=== PATIENT | female | born 1940 | race Caucasian/White ===

== ENCOUNTER 2017-10-31 14:42 | Outpatient (CLI) | payer MEDICARE, OTHER | END 2017-10-31 14:43 | disposition home or self-care (01) | LOC: BICMAMMO 14:42 | PROVIDERS: ATTEND Specialist | DX: Z12.31 Encounter for screening mammogram for malignant neoplasm of breast (principal); R92.1 Mammographic calcification found on diagnostic imaging of breast | CPT/HCPCS: 77063; 77067 ==

== ENCOUNTER 2018-04-08 17:34 | Emergency (ER) | payer MEDICARE ==
--- NOTE | 2018-04-08 18:35 | CT ---
CT HEAD WITHOUT CONTRAST: 04/08/18 Multiple axial tomograms obtained through the head without IV enhancement. INDICATION: Trauma. Patient is on blood thinner with Coumadin. Head injury with headache. Ventricles have normal size and position. No evidence of intracranial hemorrhage identified. No mass, edema or infarct seen. Some mild chronic ischemic white matter change. There is a mucous retention cyst in the both maxillary sinuses. IMPRESSION: 1. No acute intracranial abnormality. 2. Mucosal thickening in the floor of both maxillary sinuses. POS: [facility]
--- NOTE | 2018-04-08 18:45 | CT ---
CT CERVICAL SPINE WITH CORONAL AND SAGITTAL REFORMATIONS: 04/08/18 HISTORY: Trauma, headache, status post head injury, neck pain. FINDINGS/IMPRESSION: There are degenerative changes most prominent at C6-7 level. No acute fracture or subluxation is iden tified. POS: [facility]
== END 2018-04-08 19:04 | disposition home or self-care (01) ==
LOC: ERS 17:34
DX: S09.90XA Unspecified injury of head, initial encounter (principal); J44.9 Chronic obstructive pulmonary disease, unspecified; E03.9 Hypothyroidism, unspecified; E11.9 Type 2 diabetes mellitus without complications; I11.0 Hypertensive heart disease with heart failure; I50.9 Heart failure, unspecified; I48.91 Unspecified atrial fibrillation; W22.8XXA Striking against or struck by other objects, initial encounter
CPT/HCPCS: 70450; 72125

== ENCOUNTER 2018-04-14 14:24 | Outpatient (CLI) | payer MEDICARE ==
--- NOTE | 2018-04-14 16:55 | PRG ---
DATE OF SERVICE: 04/14/2018 HISTORY: Ms. Emily Mccormack is a very pleasant 77-year-old accompanied by her who presents to the [facility] for evaluation of a recurrent ulceration of the left forefoot over the first met atarsal head on the plantar surface of the left foot. The patient states that she recently completed a course of p.o. antibiotics. She states that today she noted purulent drainage from the wound. Th e patient has no other complaints today. She denies any fever or chills. PHYSICAL EXAMINATION: VITAL SIGNS: Temperature 97.4, pulse 67, respirations 19, blood pressure 140/67. Accu-Chek 150. EXTREMITIES: An ulceration over the plantar surface of the left forefoot in the region of the first metatarsal head is present. Granulation tissue is present within the wound margins. Necrotic and no nviable tissue present within the wound margins was debrided with an excisional full-thickness debrid ement with the use of scissors. No purulent drainage is associated with the wound. A sample of gran ulation tissue was excised with the use of scissors and sent for aerobic, anaerobic, and fungal cultu res. No erythema of the skin surrounding the wound is present. No maceration of the skin of the per iwound is noted. ASSESSMENT AND PLAN: 1. Recurrent ulceration of plantar surface of left forefoot over the first metatarsal head. Dressin g changes of Xeroform gauze followed by bordered gauze will be initiated today. These dressing lim es are to be performed on a daily basis after cleansing and irrigation. Antibiotic therapy will be i nitiated based upon the results of the tissue cultures obtained today. The patient and her u nderstand and are in agreement with the preceding treatment plan. 2. Diabetes mellitus. The patient's Accu-Chek in clinic today is 115. The patient has been reminde d that for optimal wound healing, her blood glucoses should remain below 150. 3. Hypertension. 4. History of atrial fibrillation and atrial flutter status post ablation x2. 5. Hypothyroidism. 6. Asthma. 7. Renal insufficiency. 8. Gastroesophageal reflux disease.
[2018-04-14] MEDS ORDERED: Sodium Chloride 0.9% 15 ML NEB ONE (18:30)
[2018-04-14] MEDS ORDERED: Lidocaine 2% Jelly 5 ML TUBE ONE (18:30)
== END 2018-04-14 14:25 | disposition home or self-care (01) ==
LOC: WCC 14:24
PROVIDERS: ATTEND Family Medicine
DX: E11.621 Type 2 diabetes mellitus with foot ulcer (principal); L97.429 Non-pressure chronic ulcer of left heel and midfoot with unspecified severity; L97.529 Non-pressure chronic ulcer of other part of left foot with unspecified severity; I10 Essential (primary) hypertension; J45.909 Unspecified asthma, uncomplicated; E03.9 Hypothyroidism, unspecified; N28.9 Disorder of kidney and ureter, unspecified; I48.91 Unspecified atrial fibrillation; I48.92 Unspecified atrial flutter
CPT/HCPCS: 36416; 87070; 87077; 87186; 87205; 87206; A4218

== ENCOUNTER 2018-08-18 13:03 | Outpatient (CLI) | payer MEDICARE ==
--- NOTE | 2018-08-18 16:00 | PRG ---
DATE OF SERVICE: 08/18/2018 HISTORY: Ms. Emily Mccormack is a very pleasant 77-year-old, accompanied by her , who presents to the [facility] for evaluation of a recurrent ulceration of the left forefoot over the first meta tarsal head on the plantar surface of the left foot. The patient states that she continues to have d rainage associated with her wound. The patient has no other complaints today. She denies any fever or chills. PHYSICAL EXAMINATION: VITAL SIGNS: Temperature 97.6, pulse 54, respirations 19, blood pressure 136/63. Accu-Chek 165. EXTREMITIES: A small shallow superficial wound over the plantar surface of the left forefoot in the region of the first metatarsal head is present. The wound resembles a break in the skin. No purulen t drainage is associated with the wound. No erythema of the skin surrounding the wound is present. No maceration of the skin of the periwound is noted. No significant edema of the left foot is presen t on exam today. ASSESSMENT AND PLAN: 1. Shallow superficial wound of the plantar surface of left forefoot over the first metatarsal head. As stated above, the wound resembles a break in the skin. [facility] it[facility]. These dressing changes are to be performed on a daily basis after cleansing and irrig ation. The patient and her understand and are in agreement with the preceding treatment plan . The patient will return to clinic on an as needed basis. 2. Diabetes mellitus. The patient's Accu-Chek in clinic today is 165. The patient has been reminde d that for optimal wound healing, her blood glucoses should remain below 150. 3. Hypertension. 4. History of atrial fibrillation and atrial flutter, status post ablation x2. 5. Hypothyroidism. 6. Asthma. 7. Renal insufficiency. 8. Gastroesophageal reflux disease.
== END 2018-08-18 13:04 | disposition home or self-care (01) ==
LOC: WCC 13:03
PROVIDERS: ATTEND Family Medicine
DX: E11.621 Type 2 diabetes mellitus with foot ulcer (principal); L97.521 Non-pressure chronic ulcer of other part of left foot limited to breakdown of skin; I10 Essential (primary) hypertension; E03.9 Hypothyroidism, unspecified; J45.909 Unspecified asthma, uncomplicated; K21.9 Gastro-esophageal reflux disease without esophagitis; N28.9 Disorder of kidney and ureter, unspecified; Z86.79 Personal history of other diseases of the circulatory system; Z98.890 Other specified postprocedural states
CPT/HCPCS: 36416

== ENCOUNTER 2018-10-27 02:06 | Inpatient (IN) | payer MEDICARE ==
[2018-10-27] MEDS ORDERED: Lorazepam 2 MG/ML VIAL ONE (04:01)
[2018-10-27 04:04] LABS: INR-International Normal Ratio 1.7; Prothrombin Time 20.4 SEC (12.0-14.7)
[2018-10-27 04:05] LABS: PTT 38.8 SEC (22.9-36.1)
[2018-10-27] MEDS ORDERED: Cefepime 2 GM VIAL ONE (04:06)
[2018-10-27 04:11] LABS: Hemoglobin 12.7 g/dL (12.0-16.0); Mean Corpuscular HGB CONC 33.1 g/dL (32.0-36.0); Mean Corpuscular Hemoglobin 32.1 pg (27.0-31.0); Mean Platelet Volume 9.7 fL (7.4-10.4); Platelet Count 158 thou/uL (130-400); RBC Distribution Width 13.1 % (11.5-14.5); Red Blood Cell (RBC) Count 3.96 mill/uL (4.20-5.40)
[2018-10-27] MEDS ORDERED: Cefepime 2 GM in Sodium Chloride 0.9% 100 ML IVPB SCH (04:15)
[2018-10-27 04:16] LABS: Band 30 % (5-11); Lymphocytes 9 % (21-51); MDiff Complete? YES; Monocytes 10 % (0-10); Neutrophil 51 % (42-75); Platelet Morphology Comment Appears Adequate
[2018-10-27 04:18] LABS: ALT (SGPT) 16 U/L (8-55); AST (SGOT) 19 U/L (5-34); Albumin 3.5 g/dL (3.4-4.8); Alkaline Phosphatase 33 U/L (40-150); Anion Gap 15 mmol/L (10-20); BUN (Urea Nitrogen) 28 mg/dL (9.8-20.1); Bilirubin, Total 0.8 mg/dL (0.2-1.2); Calc. Creatinine Clearance 0 mL/min (70-130); Calcium 9.1 mg/dL (7.8-10.44); Carbon Dioxide 27 mmol/L (23-31); Chloride 100 mmol/L (98-107); Estimated GFR-MDRD 25; Globulin 3.6 g/dL (2.4-3.5); Glucose 139 mg/dL (83-110); Potassium 3.7 mmol/L (3.5-5.1); Protein, Total 7.1 g/dL (6.0-8.3); Sodium 138 mmol/L (136-145)
[2018-10-27 07:21] LABS: Troponin I 0.058 ng/mL (< 0.028)
--- NOTE | 2018-10-27 08:42 | RAD ---
LEFT ANKLE 3 VIEWS: HISTORY: Pain. FINDINGS: Possible nondisplaced fracture involving the distal fibula. There does appear to be lateral soft tis kamlesh swelling. Chronic degenerative changes of the ankle joint space are noted. IMPRESSION: Nondisplaced fracture involving the distal fibula. There is associated soft tissue swelling. Results of the study were discussed with Dr. Vann 10/27/2018 at 8:00 a.m. CODE CR POS: [facility]
--- NOTE | 2018-10-27 09:08 | CT ---
PRELIMINARY REPORT/[facility]/EMERGENTY AFTER-HOURS PROCEDURE CT Head Without Contrast EXAM DATE/TIME: 10/27/2018 3:05 AM CLINICAL HISTORY: 78 years old, female; Injury or trauma; Fall; Initial encounter; Blunt trauma (contusions or hematoma s); Consciousness not specified; Patient HX: Fell out of bed. C/O left ankle, thigh pain. Vertigo, ge neralized weakness TECHNIQUE: Axial computed tomography images of the head/brain without contrast. COMPARISON: No relevant prior studies available. FINDINGS: Brain: Volume loss and chronic small vessel ischemic change. No brain edema. No intracranial hemorrha ge. Ventricles: Normal. No ventriculomegaly. Bones/joints: Normal. No acute fracture. Sinuses: Polypoid mucosal thickening in the maxillary and sphenoid sinuses. No fluid levels. Mastoid air cells: Normal as visualized. No mastoid effusion. Soft tissues: Normal. IMPRESSION: No acute brain findings. Thank you for allowing us to participate in the care of your patient. Dictated and Authenticated by: Roland Sullivan MD 10/27/2018 3:40 AM Central Time ([place] & [place]) FINAL REPORT HEAD CT WITHOUT CONTRAST: HISTORY: Fall. The patient is on Coumadin. COMPARISON: 04/08/2018. FINDINGS: This report is in agreement with the preliminary report by [facility]. No acute intracranial process. No i ntracranial posttraumatic sequelae. There is sinus opacification as described in the preliminary rep ort by [facility]. POS: [facility]
--- NOTE | 2018-10-27 09:39 | RAD ---
LEFT TIBIA FIBULA 2 VIEWS: History Fall. Trauma. Pain. FINDINGS: There is a nondisplaced distal fibula fracture. There is a mildly displaced proximal fibula fracture . There is diffuse bone demineralization. No evidence of cortical disruption with regards to the ti delia. IMPRESSION: Proximal and distal fibula fractures. POS: [facility]
--- NOTE | 2018-10-27 09:58 | RAD ---
FOUR VIEWS LEFT KNEE: HISTORY: Pain. Trauma. Fall. COMPARISON: 03/25/2011. FINDINGS: Minimal suprapatellar effusion. Mild medial compartment and patellofemoral compartment degenerative change. No evidence of fracture with regards to the distal humerus and proximal tibia. There is a m ildly displaced proximal fibula fracture. IMPRESSION: Proximal fibula fracture. POS: [facility]
--- NOTE | 2018-10-27 10:00 | RAD ---
CHEST 1 VIEW: COMPARISON: 01/16/2014. HISTORY: Status post fall. Pain. Trauma. FINDINGS: There is an enlarged cardiac silhouette. Atherosclerosis of the aorta. Right costophrenic angle is clear. There is a focal opacity in the right upper lobe measuring 5.5 cm. There is focal opacificat ion of the left lower lobe which obscures the lateral left hemidiaphragm. No pneumothorax or osseous abnormalities. IMPRESSION: Multilobar opacification suggesting multilobar pneumonia/infiltrate. Continued surveillance to ensur e complete resolution is recommended. CODE T POS: [facility]
[2018-10-27] MEDS ORDERED: Dextrose 50% Abboject 50 ML SYRINGE IVP PRN (10:28)
[2018-10-27] MEDS ORDERED: Insulin Regular 300 UNITS/3 ML VIAL SC PRN (10:28)
[2018-10-27] MEDS ORDERED: Dextrose 5% in Water 1,000 ML IV PRN (10:28)
[2018-10-27] MEDS ORDERED: VANCOMYCIN IVPB SCH (10:30)
[2018-10-27] MEDS: Sodium Chloride 0.45% 1,000 ML IV SCH ×2 (11:37→23:48)
[2018-10-27] MEDS ORDERED: Vancomycin HCl 500 MG in Sodium Chloride 0.9% 100 ML IVPB SCH (11:45)
--- NOTE | 2018-10-27 15:33 | CON ---
DATE OF CONSULTATION: 10/27/2018 CONSULTING PHYSICIAN: William Heath MD REASON FOR CONSULTATION: Left leg fracture. HISTORY OF PRESENT ILLNESS: This is an 78-year-old female, who fell out of bed with complaints of left ankle and thigh pain. She also presented to the [facility] with complaints of vertigo and generalized weakness. Upon further workup in the emergency department, the patient was found to have a proximal fibula fracture on the left side. We have been consulted for this reason. Currently at bedside in the emergency department, the patient is awaiting a bed upstairs. She is difficult to arouse and history is somewhat limited secondary to this. Majority of records obtained from the chart. The patient does report worsening generalized weakness over the last week, which she attributed to a bout of vertigo. She complains of left leg pain from the knee down. PAST MEDICAL HISTORY: Includes congestive heart failure, COPD, hypothyroidism, diabetes, hypertension; atrial fibrillation, currently on anticoagulants; neuropathy, and decreased kidney function. PAST SURGICAL HISTORY: Includes cardiac ablation x2, bilateral cataracts, hysterectomy, right knee surgery, tonsillectomy, and right hip fracture. SOCIAL HISTORY: The patient denies smoking. Denies alcohol use. Denies drug use. FAMILY HISTORY: Reviewed and noncontributory. ALLERGIES: INCLUDE IODINE, PENICILLIN, SHELLFISH, AND PLASMA PROTEIN FRACTION. PHYSICAL EXAMINATION: VITAL SIGNS: Temperature 98.5, pulse of 79, respiratory rate of 16, O2 saturation of 96% on 2 L nasal cannula, and blood pressure 173/72. GENERAL: The patient is sleeping heavily and is difficult to arouse. I am able to just get a few words out of her. She voices no pain. There is no family currently at bedside. HEENT. Head is normocephalic and atraumatic. NECK: Supple. Trachea midline. LUNGS: Breathing is nonlabored. EXTREMITIES: The left lower extremity was evaluated. There is a long leg posterior splint intact. This has been placed in the emergency department. The patient voluntarily moves her toes. Toes are warm to touch. Capillary refill 2 seconds. Skin is free of lesions and rashes at the splint edges. Remainder of extremities evaluated and no other injuries were noted. RADIOGRAPHIC FINDINGS: X-rays were reviewed, including tibia, knee, ankle films on the left side show evidence of proximal fibula fracture. There are chronic old changes within the ankle. No acute findings. No evidence of proximal tibia fracture. ASSESSMENT: Left proximal fibula fracture. The patient has a long leg splint placed. However, she may weightbear as tolerated. She may advance activity as tolerated. No surgical intervention is warranted at this time. Due to patient's condition, she will not awake for exam, I have been unable to discuss this with her. No family is at bedside. Please consult with the Orthopedic Service for any further questions. Job ID: [id number]
[2018-10-27] MEDS ORDERED: Vancomycin HCl 1 GM in Premix Bag 1 BAG IVPB SCH (16:00)
[2018-10-27] MEDS: Warfarin Sodium 1 MG TAB PO SCH (17:12)
[2018-10-27] MEDS ORDERED: Carvedilol 6.25 MG TAB PO SCH (21:00)
--- NOTE | 2018-10-27 21:26 | HP ---
CHIEF COMPLAINT ON ADMISSION: Pneumonia with sepsis and fibular fracture. HISTORY OF PRESENT ILLNESS: The patient is an 78-year-old white female who presented for evaluation of dizziness and vertigo. She stated that while getting out of bed, she slid off the bed onto the floor and has had generalized weakness over the last week, which she attributed to the vertigo. She fell again while trying to get loaded into the ambulance, hitting her head just barely without any loss of consciousness. She has pain in the lower left knee down. Symptoms are mostly severe in the left lower leg. She describes it as an 8/10 pain, worse with walking. She has had fever lately, but no headache. She has had nausea and vomiting. Her symptoms are made worse with movement. PAST MEDICAL HISTORY: Significant for congestive heart failure, chronic obstructive pulmonary disease, pleural effusion in the past, hypothyroidism, rfh-xpjoyqf-gmselyidg diabetes, hypertension, atrial fibrillation, diabetic peripheral neuropathy, renal insufficiency, and thrombophlebitis. She has also had a vertebral compression fracture due to osteoporosis. PAST SURGICAL HISTORY: Includes cardiac ablation x2, bilateral cataract repair, hysterectomy, right knee total replacement, tonsillectomy, right hip with a fracture and two rods placed in 04/2011. PSYCHIATRIC HISTORY: Significant for anxiety disorder and depression. SOCIAL HISTORY: No smoking history. Denies alcohol use or illicit drug use. FAMILY HISTORY: Noncontributory. ALLERGIES: ON ADMISSION INCLUDE IODINE, PENICILLIN, PLASMA PROTEIN FRACTION, SHELLFISH. MEDICATIONS ON ADMISSION: Include; 1. Hydrochlorothiazide 12.5 q.a.m. 2. Onglyza 5 mg daily. 3. [place] Thyroid 90 mg daily. 4. Hydrocodone 10 q.6h p.r.n. pain. 5. Actos 30 mg daily. 6. Forteo 20 mcg subcu daily. 7. Chlorzoxazone muscle relaxer 500 mg q.6 hours p.r.n. muscle spasm. 8. Toprol-XL 100 mg daily. 9. Gabapentin 100 mg b.i.d. 10. Symbicort 160/4.5 two puffs b.i.d. 11. Tricor 145 mg p.o. daily. 12. Amlodipine 10 mg daily. 13. Warfarin 1 mg every other day. 14. Clonidine 0.1 mg t.i.d. 15. Meclizine 25 mg t.i.d. 16. Fluticasone 50 mcg nasal spray per nostril daily. REVIEW OF SYSTEMS: CONSTITUTIONAL: Significant for generalized weakness, but denies fever, chills, or rigors. HEENT: Eyes without drainage or diminished vision. Ear, nose, and throat, no sores or draining lesions. CHEST: Reports shortness of breath and coughing more with exertion. CARDIOVASCULAR: The patient denies chest pain or palpitations. GI: Significant for nausea and vomiting, but no diarrhea or hepatosplenomegaly. : Negative for painful urination or blood in urine or stool. MUSCULOSKELETAL: Has diffuse aches and pains, particularly her left ankle from the knee down is causing her some discomfort and diminished range of motion. SKIN: No new rashes or lesions. NEUROLOGIC: Cranial nerves are nonfocal. She has no trouble with mentation. No areas of anesthesia or paresthesia. IMMUNOLOGIC/ENDOCRINE: No new areas of ecchymosis, bruising, or unexplainable swelling. PHYSICAL EXAMINATION: VITAL SIGNS: At time of admission, vital signs; blood pressure 146/92, pulse 76 , respirations 20, temperature 99, pain scale 8/10, and O2 saturation 96% on 2 L. GENERAL: This is a sleeping deeply , morbidly obese female. HEENT: Normocephalic and atraumatic. Pupils are equal, round, and reactive to light. Arcus senilis bilaterally. TMs, nares, pharynx clear. NECK: Supple. Trachea midline. No mass. No bruits. CHEST: With rales on the right. HEART: Regular rate and rhythm. No murmur. ABDOMEN: Soft. No organomegaly. Nontender. : Deferred. SKIN: Without overt rashes or lesions. EXTREMITIES: Left lower extremity with some swelling and painful range of motion, currently splinted and Prabhakar wrap. NEUROLOGIC: Cranial nerves are intact. Gait and cerebellar function not tested. Sensory exam is grossly normal. LABORATORY DATA: Lab work on admission; WBCs 22, hemoglobin 12.7, hematocrit 38.5 with 158,000 platelets. Sodium 138, potassium 3.7, chloride 100, CO2 of 27, BUN 28, creatinine 1.94, and glucose of 139. PT 20.4, INR 1.7 with PTT 38.8. Cardiac troponins are slightly elevated at 0.05, thought to be due to renal insufficiency. Liver enzymes are unremarkable. Lactic acid is only 1.7. GFR 25. X-ray of the ankle shows left-sided nondisplaced fibular fracture. The brain CT showed no acute findings. The chest x-ray showed multilobar opacification suggesting multilobar pneumonia infiltrate. Continued surveillance to ensure complete resolution. Focal opacity in the right upper lobe measuring 5.5 cm and left lower lobe obscuring the left hemidiaphragm. Left knee x-ray shows proximal fibular fracture, mildly displaced on the tib-fib, again proximal and distal fibular fractures. No evidence of cortical disruption in regarding the tibia. The distal fibular fracture is nondisplaced as well the proximal fibular fracture is mildly displaced. An ankle x-ray again showing the distal fibular fracture is mildly displaced. ASSESSMENT: 1) Multilobar pneumonia, 2) multiple fibular fractures on her left, 3) chronic vertigo, 4) gea-djyqbqq-hchsgnzbe diabetes, 5) morbid obesity with extremely sedentary lifestyle. We will provide pain management, IV antibiotics, serial re-evaluation. Job ID: [id number] [facility]
[2018-10-27] MEDS ORDERED: Gabapentin 100 MG CAP PO SCH (23:30)
[2018-10-27] MEDS: guaiFENesin ER 600 MG TAB PO SCH (23:56)
[2018-10-27] MEDS: cloNIDine 0.1 MG TAB PO SCH (23:56)
[2018-10-28] MEDS ORDERED: Vancomycin HCl 1.5 GM in Sodium Chloride 0.9% 250 ML 300 ML IVPB SCH (05:00)
[2018-10-28 05:32] LABS: #Eosinphils 0.1 thou/uL (0.0-0.7); #Lymphocytes 1.7 thou/uL (1.20-3.40); #Monocytes 1.4 thou/uL (0.11-0.59); %Basophils 0.1 % (0.0-1.0); %Eosinophils 0.5 % (0.0-10.0); %Lymphocytes 9.4 % (21.0-51.0); %Monocytes 7.9 % (0.0-10.0); %Neutrophils 82.2 % (42.0-75.0); Hemoglobin 11.5 g/dL (12.0-16.0); Mean Corpuscular HGB CONC 33.3 g/dL (32.0-36.0); Mean Corpuscular Hemoglobin 32.5 pg (27.0-31.0); Mean Corpuscular Volume 97.6 fL (78.0-98.0); Mean Platelet Volume 9.6 fL (7.4-10.4); Platelet Count 126 thou/uL (130-400); Red Blood Cell (RBC) Count 3.55 mill/uL (4.20-5.40); White Blood Cell (WBC) Count 18.2 thou/uL (4.8-10.8)
[2018-10-28 05:39] LABS: Hemoglobin A1c 5.9 % (4.0-6.0)
[2018-10-28 05:59] LABS: Anion Gap 13 mmol/L (10-20); BUN (Urea Nitrogen) 37 mg/dL (9.8-20.1); Calc. Creatinine Clearance 39 mL/min (70-130); Calcium 7.8 mg/dL (7.8-10.44); Carbon Dioxide 23 mmol/L (23-31); Chloride 102 mmol/L (98-107); Estimated GFR-MDRD 28; Glucose 100 mg/dL (83-110); Potassium 3.7 mmol/L (3.5-5.1); Sodium 134 mmol/L (136-145)
[2018-10-28] MEDS ORDERED: Vancomycin HCl 1 GM in Premix Bag 1 BAG IVPB SCH (06:30)
[2018-10-28] MEDS: Sodium Chloride 0.45% 1,000 ML IV SCH ×2 (06:50→21:43)
[2018-10-28] MEDS: cloNIDine 0.1 MG TAB PO SCH ×2 (09:14→21:42)
[2018-10-28] MEDS: Hydrochlorothiazide 25 MG TAB PO SCH (09:15)
[2018-10-28] MEDS: guaiFENesin ER 600 MG TAB PO SCH ×2 (09:15→21:55)
[2018-10-28] MEDS: Gabapentin 100 MG CAP PO SCH ×2 (09:15→21:42)
[2018-10-28] MEDS: HYDROcodone/Acetaminophen 5/325 mg Tablet PO PRN ×3 (09:15→22:21)
[2018-10-28] MEDS: Amlodipine 10 MG TAB PO SCH (09:17)
[2018-10-28] MEDS: Pioglitazone HCl 15 MG TAB PO SCH (09:18)
[2018-10-28] MEDS: Pantoprazole 40 MG VIAL IVP SCH (09:18)
[2018-10-28] MEDS ORDERED: Scopolamine 1.5 mg/72 hour Patch TOP SCH (13:00)
--- NOTE | 2018-10-28 13:41 | CON ---
DATE OF CONSULTATION: Upon further review of the patient's x-rays including x-rays of the left tibia, left ankle, and left knee, does appear that the patient has both a proximal fibula fracture as well as a distal fibula fracture. Neither of these fractures appear displaced in nature. Plan of care will be to leave the splint intact. The patient will remain nonweightbearing. Job ID: [id number]
[2018-10-28] MEDS: Ondansetron PF 4 MG/2 ML Vial IVP PRN (21:57)
[2018-10-28] MEDS: Warfarin Sodium 1 MG TAB PO SCH (22:53)
[2018-10-29] MEDS: Vancomycin HCl 1 GM in Premix Bag 1 BAG IVPB SCH (05:49)
[2018-10-29 06:44] LABS: #Eosinphils 0.1 thou/uL (0.0-0.7); #Lymphocytes 1.5 thou/uL (1.20-3.40); #Monocytes 0.9 thou/uL (0.11-0.59); #Neutrophils 9.8 thou/uL (1.40-6.50); %Lymphocytes 12.2 % (21.0-51.0); %Neutrophils 79.8 % (42.0-75.0); Hemoglobin 10.5 g/dL (12.0-16.0); Mean Corpuscular HGB CONC 33.2 g/dL (32.0-36.0); Mean Corpuscular Hemoglobin 32.2 pg (27.0-31.0); Mean Platelet Volume 10.3 fL (7.4-10.4); Platelet Count 137 thou/uL (130-400); RBC Distribution Width 12.7 % (11.5-14.5); Red Blood Cell (RBC) Count 3.26 mill/uL (4.20-5.40); White Blood Cell (WBC) Count 12.2 thou/uL (4.8-10.8)
[2018-10-29] MEDS: Sodium Chloride 0.45% 1,000 ML IV SCH ×2 (08:13→19:03)
[2018-10-29] MEDS: Pioglitazone HCl 15 MG TAB PO SCH (08:14)
[2018-10-29] MEDS: cloNIDine 0.1 MG TAB PO SCH ×2 (08:15→20:52)
[2018-10-29] MEDS: Amlodipine 10 MG TAB PO SCH (08:15)
[2018-10-29] MEDS: Pantoprazole 40 MG VIAL IVP SCH (08:15)
[2018-10-29] MEDS: Hydrochlorothiazide 25 MG TAB PO SCH (08:16)
[2018-10-29] MEDS: HYDROcodone/Acetaminophen 5/325 mg Tablet PO PRN (08:16)
[2018-10-29] MEDS: guaiFENesin ER 600 MG TAB PO SCH ×2 (08:16→20:53)
[2018-10-29] MEDS: Gabapentin 100 MG CAP PO SCH ×2 (08:16→20:53)
[2018-10-29 09:25] LABS: INR-International Normal Ratio 2.2; Prothrombin Time 24.5 SEC (12.0-14.7)
[2018-10-29 16:13] VITALS: BMI 39.1
[2018-10-29] MEDS: Warfarin Sodium 1 MG TAB PO SCH (16:24)
[2018-10-30] MEDS: Acetaminophen 325 MG TAB PO PRN (00:34)
[2018-10-30] MEDS: Sodium Chloride 0.45% 1,000 ML IV SCH ×2 (05:12→18:01)
[2018-10-30 05:35] LABS: #Lymphocytes 0.9 thou/uL (1.20-3.40); #Monocytes 0.9 thou/uL (0.11-0.59); #Neutrophils 7.9 thou/uL (1.40-6.50); %Basophils 0.2 % (0.0-1.0); %Eosinophils 0.5 % (0.0-10.0); %Lymphocytes 8.9 % (21.0-51.0); %Neutrophils 81.5 % (42.0-75.0); Hemoglobin 10.7 g/dL (12.0-16.0); Mean Corpuscular HGB CONC 32.8 g/dL (32.0-36.0); Mean Corpuscular Hemoglobin 31.9 pg (27.0-31.0); Mean Corpuscular Volume 97.2 fL (78.0-98.0); Mean Platelet Volume 9.1 fL (7.4-10.4); Platelet Count 147 thou/uL (130-400); RBC Distribution Width 12.8 % (11.5-14.5); Red Blood Cell (RBC) Count 3.34 mill/uL (4.20-5.40); White Blood Cell (WBC) Count 9.7 thou/uL (4.8-10.8)
[2018-10-30 05:39] LABS: INR-International Normal Ratio 2.1; Prothrombin Time 23.6 SEC (12.0-14.7)
[2018-10-30 05:52] LABS: Vancomycin, Trough 12.8 ug/mL
[2018-10-30 05:54] LABS: Anion Gap 13 mmol/L (10-20); BUN (Urea Nitrogen) 29 mg/dL (9.8-20.1); Calc. Creatinine Clearance 48 mL/min (70-130); Carbon Dioxide 25 mmol/L (23-31); Chloride 98 mmol/L (98-107); Estimated GFR-MDRD 35; Glucose 140 mg/dL (83-110); Potassium 4.3 mmol/L (3.5-5.1); Sodium 132 mmol/L (136-145)
[2018-10-30] MEDS: Vancomycin HCl 1 GM in Premix Bag 1 BAG IVPB SCH (06:08)
[2018-10-30] MEDS: Pioglitazone HCl 15 MG TAB PO SCH (08:59)
[2018-10-30] MEDS: guaiFENesin ER 600 MG TAB PO SCH ×2 (09:00→20:54)
[2018-10-30] MEDS: Hydrochlorothiazide 25 MG TAB PO SCH (09:00)
[2018-10-30] MEDS: Pantoprazole 40 MG VIAL IVP SCH (09:00)
[2018-10-30] MEDS: Amlodipine 10 MG TAB PO SCH (09:00)
[2018-10-30] MEDS: cloNIDine 0.1 MG TAB PO SCH ×2 (09:00→20:54)
[2018-10-30] MEDS: Gabapentin 100 MG CAP PO SCH ×2 (09:01→20:54)
[2018-10-30] MEDS: Warfarin Sodium 1 MG TAB PO SCH (18:00)
[2018-10-31] MEDS: Acetaminophen 325 MG TAB PO PRN (02:51)
[2018-10-31] MEDS: Sodium Chloride 0.45% 1,000 ML IV SCH (02:52)
[2018-10-31] MEDS: Vancomycin HCl 1 GM in Premix Bag 1 BAG IVPB SCH (05:36)
[2018-10-31 08:36] LABS: #Basophils 0.1 thou/uL (0.0-0.2); #Monocytes 1.2 thou/uL (0.11-0.59); #Neutrophils 7.7 thou/uL (1.40-6.50); %Basophils 0.6 % (0.0-1.0); %Eosinophils 0.3 % (0.0-10.0); %Lymphocytes 9.7 % (21.0-51.0); %Monocytes 11.9 % (0.0-10.0); %Neutrophils 77.5 % (42.0-75.0); Hemoglobin 10.8 g/dL (12.0-16.0); Mean Corpuscular HGB CONC 32.7 g/dL (32.0-36.0); Mean Corpuscular Hemoglobin 31.4 pg (27.0-31.0); Mean Platelet Volume 9.1 fL (7.4-10.4); Platelet Count 160 thou/uL (130-400); RBC Distribution Width 12.4 % (11.5-14.5); Red Blood Cell (RBC) Count 3.45 mill/uL (4.20-5.40); White Blood Cell (WBC) Count 9.9 thou/uL (4.8-10.8)
[2018-10-31 08:58] LABS: Anion Gap 14 mmol/L (10-20); BUN (Urea Nitrogen) 16 mg/dL (9.8-20.1); Calc. Creatinine Clearance 64 mL/min (70-130); Calcium 8.5 mg/dL (7.8-10.44); Carbon Dioxide 24 mmol/L (23-31); Chloride 97 mmol/L (98-107); Estimated GFR-MDRD 49; Glucose 174 mg/dL (83-110); Potassium 3.9 mmol/L (3.5-5.1); Sodium 131 mmol/L (136-145)
[2018-10-31 09:07] LABS: INR-International Normal Ratio 2.4; Prothrombin Time 25.9 SEC (12.0-14.7)
[2018-10-31] MEDS: Ondansetron PF 4 MG/2 ML Vial IVP PRN (09:15)
[2018-10-31] MEDS: Amlodipine 10 MG TAB PO SCH (09:16)
[2018-10-31] MEDS: Gabapentin 100 MG CAP PO SCH ×2 (09:16→20:30)
[2018-10-31] MEDS: cloNIDine 0.1 MG TAB PO SCH ×2 (09:16→20:30)
[2018-10-31] MEDS: guaiFENesin ER 600 MG TAB PO SCH ×2 (09:16→20:31)
[2018-10-31] MEDS: Hydrochlorothiazide 25 MG TAB PO SCH (09:17)
[2018-10-31] MEDS: Pantoprazole 40 MG VIAL IVP SCH (09:17)
[2018-10-31] MEDS: Pioglitazone HCl 15 MG TAB PO SCH (09:17)
[2018-10-31] MEDS: Meclizine HCl 25 MG TAB PO SCH ×2 (09:24→20:31)
[2018-10-31] MEDS: HYDROcodone/Acetaminophen 5/325 mg Tablet PO PRN (11:45)
[2018-10-31] MEDS: Warfarin Sodium 1 MG TAB PO SCH (17:46)
[2018-10-31] MEDS: Lorazepam 0.5 MG TAB PO PRN (23:11)
[2018-11-01 06:30] LABS: INR-International Normal Ratio 2.6; Prothrombin Time 27.5 SEC (12.0-14.7)
[2018-11-01 06:35] LABS: Vancomycin, Trough 12.4 ug/mL
[2018-11-01] MEDS: Vancomycin HCl 1 GM in Premix Bag 1 BAG IVPB SCH (07:01)
[2018-11-01] MEDS: Vancomycin HCl 1.25 GM in Sodium Chloride 0.9% 250 ML 250 ML IVPB SCH (09:31)
[2018-11-01] MEDS: Pioglitazone HCl 15 MG TAB PO SCH (09:32)
[2018-11-01] MEDS: guaiFENesin ER 600 MG TAB PO SCH ×2 (09:32→21:14)
[2018-11-01] MEDS: Nystatin 500,000 UNITS/5 ML UDCUP SSW SCH ×4 (09:33→21:15)
[2018-11-01] MEDS: Fluconazole 100 MG TAB PO SCH (09:34)
[2018-11-01] MEDS: Meclizine HCl 25 MG TAB PO SCH ×2 (09:34→21:14)
[2018-11-01] MEDS: Amlodipine 10 MG TAB PO SCH (09:34)
[2018-11-01] MEDS: cloNIDine 0.1 MG TAB PO SCH ×2 (09:35→21:13)
[2018-11-01] MEDS: Hydrochlorothiazide 25 MG TAB PO SCH (09:35)
[2018-11-01] MEDS: Gabapentin 100 MG CAP PO SCH ×2 (09:35→21:14)
--- NOTE | 2018-11-01 13:03 | RAD ---
CHEST 2 VIEWS: Date: 11/01/18 HISTORY: Pneumonia. COMPARISON: Radiograph dated 10/27/18. FINDINGS: No significant improvement in the right upper lobe air space opacity. There are new round-like opacit ies left mid lung and left lower lobe. No pneumothorax. IMPRESSION: New nodular densities in left mid lung, lower lung, and right lower lobe, as well as the opacity in t he right upper lobe. Follow-up nonemergent CT chest recommended. POS: [facility]
[2018-11-01] MEDS: Warfarin Sodium 1 MG TAB PO SCH (18:10)
[2018-11-01] MEDS: HYDROcodone/Acetaminophen 5/325 mg Tablet PO PRN (21:22)
[2018-11-02] MEDS: Vancomycin HCl 1.25 GM in Sodium Chloride 0.9% 250 ML 250 ML IVPB SCH (08:20)
[2018-11-02] MEDS: cloNIDine 0.1 MG TAB PO SCH ×2 (08:21→20:51)
[2018-11-02] MEDS: Hydrochlorothiazide 25 MG TAB PO SCH (08:21)
[2018-11-02] MEDS: guaiFENesin ER 600 MG TAB PO SCH ×2 (08:22→20:51)
[2018-11-02] MEDS: Gabapentin 100 MG CAP PO SCH ×2 (08:22→20:51)
[2018-11-02] MEDS: Amlodipine 10 MG TAB PO SCH (08:22)
[2018-11-02] MEDS: Nystatin 500,000 UNITS/5 ML UDCUP SSW SCH ×4 (08:22→20:53)
[2018-11-02] MEDS: Meclizine HCl 25 MG TAB PO SCH ×2 (08:22→20:51)
[2018-11-02] MEDS: Fluconazole 100 MG TAB PO SCH (08:22)
[2018-11-02] MEDS: Pioglitazone HCl 15 MG TAB PO SCH (08:23)
[2018-11-02 09:07] LABS: INR-International Normal Ratio 3.1; Prothrombin Time 31.9 SEC (12.0-14.7)
[2018-11-02 09:20] LABS: Anion Gap 12 mmol/L (10-20); BUN (Urea Nitrogen) 15 mg/dL (9.8-20.1); Calc. Creatinine Clearance 67 mL/min (70-130); Calcium 8.7 mg/dL (7.8-10.44); Carbon Dioxide 27 mmol/L (23-31); Chloride 96 mmol/L (98-107); Estimated GFR-MDRD 52; Glucose 134 mg/dL (83-110); Sodium 131 mmol/L (136-145)
[2018-11-02 09:24] LABS: Band 5 % (5-11); Hemoglobin 11.1 g/dL (12.0-16.0); Lymphocytes 21 % (21-51); MDiff Complete? YES; Mean Corpuscular HGB CONC 33.6 g/dL (32.0-36.0); Mean Corpuscular Hemoglobin 32.5 pg (27.0-31.0); Mean Corpuscular Volume 96.7 fL (78.0-98.0); Mean Platelet Volume 7.7 fL (7.4-10.4); Monocytes 13 % (0-10); Neutrophil 61 % (42-75); Platelet Count 207 thou/uL (130-400); RBC Distribution Width 12.6 % (11.5-14.5); Red Blood Cell (RBC) Count 3.41 mill/uL (4.20-5.40); White Blood Cell (WBC) Count 7.7 thou/uL (4.8-10.8)
--- NOTE | 2018-11-02 11:27 | CT ---
CT CHEST NONCONTRAST: Date: 11/02/18 HISTORY: Pneumonia. Abnormal chest radiograph. Mass. FINDINGS: There is dense consolidation in the lateral aspect of the right upper lobe with air bronchograms. Sub segmental multifocal infiltrates are present within the left upper and lower lobes. Small amount of r ight pleural fluid with right basilar atelectasis. Minimal left pleural fluid. Lack of contrast limits evaluation of the soft tissues. No bulky mediastinal adenopathy. Calcificatio n within the arterial structures. Calcified granulomata of the spleen. IMPRESSION: 1. Dense right upper lobe pneumonia. 2. Multifocal pneumonitis throughout the left lung. 3. Small bilateral pleural effusions. 4. Atherosclerosis. POS: [facility]
[2018-11-02] MEDS: Warfarin Sodium 1 MG TAB PO SCH (17:19)
[2018-11-02] MEDS: Acetaminophen 325 MG TAB PO PRN (20:53)
[2018-11-03] MEDS: Acetaminophen 325 MG TAB PO PRN ×2 (04:53→14:47)
[2018-11-03 08:05] LABS: #Eosinphils 0.3 thou/uL (0.0-0.7); #Lymphocytes 1.5 thou/uL (1.20-3.40); #Monocytes 0.9 thou/uL (0.11-0.59); #Neutrophils 4.1 thou/uL (1.40-6.50); %Basophils 0.6 % (0.0-1.0); %Eosinophils 4.8 % (0.0-10.0); %Lymphocytes 21.6 % (21.0-51.0); %Monocytes 13.4 % (0.0-10.0); %Neutrophils 59.7 % (42.0-75.0); Hemoglobin 10.6 g/dL (12.0-16.0); Mean Corpuscular HGB CONC 32.3 g/dL (32.0-36.0); Mean Corpuscular Hemoglobin 31.2 pg (27.0-31.0); Mean Corpuscular Volume 96.7 fL (78.0-98.0); Mean Platelet Volume 7.8 fL (7.4-10.4); Platelet Count 264 thou/uL (130-400); RBC Distribution Width 12.5 % (11.5-14.5); White Blood Cell (WBC) Count 6.9 thou/uL (4.8-10.8)
[2018-11-03 08:15] LABS: INR-International Normal Ratio 3.4; Prothrombin Time 34.2 SEC (12.0-14.7)
[2018-11-03 08:28] LABS: Vancomycin, Trough 15.1 ug/mL
[2018-11-03] MEDS: Hydrochlorothiazide 25 MG TAB PO SCH (08:38)
[2018-11-03] MEDS: cloNIDine 0.1 MG TAB PO SCH ×2 (08:38→21:17)
[2018-11-03] MEDS: Fluconazole 100 MG TAB PO SCH (08:39)
[2018-11-03] MEDS: guaiFENesin ER 600 MG TAB PO SCH ×2 (08:39→21:18)
[2018-11-03] MEDS: Gabapentin 100 MG CAP PO SCH ×2 (08:39→21:17)
[2018-11-03] MEDS: Amlodipine 10 MG TAB PO SCH (08:39)
[2018-11-03] MEDS: Pioglitazone HCl 15 MG TAB PO SCH (08:39)
[2018-11-03] MEDS: Nystatin 500,000 UNITS/5 ML UDCUP SSW SCH ×4 (08:40→20:51)
[2018-11-03] MEDS: Meclizine HCl 25 MG TAB PO SCH ×2 (09:04→21:21)
[2018-11-03] MEDS: Vancomycin HCl 1.25 GM in Sodium Chloride 0.9% 250 ML 250 ML IVPB SCH (09:19)
[2018-11-03 14:18] LABS: Legionella Urinary Ag Negative (Negative); Strep pneumo Urine Ag NEGATIVE (NEGATIVE)
[2018-11-03] MEDS: Warfarin Sodium 1 MG TAB PO SCH (16:45)
--- NOTE | 2018-11-03 18:31 | CON ---
DATE OF CONSULTATION: 11/03/2018 REASON FOR CONSULTATION: Pneumonia with concern regarding the rate of improvement. HISTORY OF PRESENT ILLNESS: An 78-year-old who has a history of type 2 diabetes mellitus, atrial fibrillation with RVR, hypertension, and a prior catheter ablation done in 2013. She has not been admitted to [facility] in the past 4 years now. She presents admitted about a week before this consult with new onset of dizziness, weakness, and then apparently fell when she was being transported by EMS and reportedly broke her left leg during the event. She had some reported fever, which was documented in her home setting. On arrival, her pulse 76, BP 140/90, respirations 20, temperature 99, pain 8/10 in the legs, and O2 saturation 96%. She was sleepy. Chest is described as having expiratory crackles on the right side. Heart exam was normal. Skin examination was normal. Initial white cell count 22,000 with bandemia. The INR was 1.7, creatinine 1.94. Troponins were slightly elevated. Liver profile is normal. Lactic acid 1.7. Chest x-ray showed a left-sided opacification suggesting pneumonia. She also had a few areas of opacification on the left side. The left lower extremity showed a fibular fracture mildly displaced. The fracture was managed conservatively with a splint with no surgical intervention felt to be warranted at this time. The patient had 2 sets of blood culture submitted, which have been no growth thus far. The white cell count [place] steadily [place] [address] to 6.9, hemoglobin has remained fairly stable. The platelet count has improved to 264. Chemistry, there has been improvement in creatinine and sodium has remained 131 approximately. Currently, she is feeling a little bit better. She is still having a little bit of cough but no sputum production. No headaches. No visual symptoms, sore throat, odynophagia, or dysphagia. No back pain. No abdominal pain or diarrhea. No chest pain. The pain in the left lower extremity is improved with the splint. No genitourinary symptoms. PAST MEDICAL HISTORY: Type 2 diabetes mellitus, atrial fibrillation with RVR with previous ablation in 2013, history of COPD although she never smoked in her life. There is a history of asthma during childhood. Pleural effusion in the past, peripheral neuropathy, renal insufficiency, thrombophlebitis, vertebral compression fracture. History of skin staphylococcal abscesses in the past and a chronic wound in the left foot which apparently has almost completely healed. PAST SURGICAL HISTORY: Cardiac ablation, cataract repair, hysterectomy, right knee replacement, tonsillectomy, fracture right hip. SOCIAL HISTORY: Never smoker. No significant exposure either. . Lives in [place] with . FAMILY HISTORY: Noncontributory. ALLERGIES: PENICILLIN, IODINE, SHELLFISH. CURRENT MEDICATIONS: 1. Tylenol. 2. [place]. 3. DuoNeb. 4. Norvasc. 5. Catapres. 6. Diflucan. 7. Neurontin. 8. Glucagon. 9. Mucinex. 10. Insulin. 11. Levofloxacin. 12. Ativan. 13. Metoprolol. 14. Vancomycin. 15. Thyroid replacement. 16. Warfarin. PHYSICAL EXAMINATION: VITAL SIGNS: T-max 99.9, blood pressure 130/60, pulse 79, respirations 16, O2 saturation 100%. SKIN: Shows the area bruising in one of the extremities and there is a small area of linear, very superficial ulceration in the bottom aspect of the right 1st MPJ. On the left side, some shallow ulcerations at the bottom aspect of the left MPJ skin site without inflammatory changes. No lymphadenopathy. Peripheral IV access noted. The patient is voiding using the diaper. HEENT: Ocular movements conjugate. Slight periorbital edema. Oral cavity is not remarkable. NECK: Supple without jugular venous distention. LUNGS: With egophony and a few crackles in the right upper lung. Other elements are clear. HEART: S1, S2. Regular rate. No S3, S4, or murmurs. ABDOMEN: Soft, not distended or tender. No ascites. No bladder distention. EXTREMITIES: No joint inflammatory activity. Pulses 1+ in dorsalis pedis. NEURO: Nonfocal including cognitive function. LABORATORY DATA: Has been reviewed above, as well as the microbiology results. She had a chest x-ray on 10/27, which demonstrated multilobar opacification. Followup chest x-ray was performed yesterday and was about the same. CT chest was done yesterday and it showed dense consolidation lateral aspect of right upper lobe with air bronchograms. Subsegmental multifocal infiltrates present within the left upper and lower lobes. Small amount of right pleural fluid. ASSESSMENT: 1. Type 2 diabetes. 2. Supraventricular tachycardia with prior ablation. 3. Community-acquired pneumonia with multifocal presentation with a clear-cut clinical improvement as well as laboratory improvement. DISCUSSION: The most likely scenario is community-acquired pathogens such as Streptococcus pneumoniae, Legionella, mycoplasma, and so on. Staphylococcus aureus is less likely since the patient was not bacteremic, although is not completely ruled out. Mycobacterium tuberculosis and fungal infections are less likely in view of the clinical improvement. Radiological improvement sometimes will frequently lag behind the clinical improvement. Followup radiology studies in about 4 weeks. Check Streptococcus pneumoniae and Legionella antigen in urine and respiratory pathogen PCR panel. DC vancomycin and continue levofloxacin. Consider switching to the oral administration route. Job ID: [id number]
[2018-11-03] MEDS: Lorazepam 0.5 MG TAB PO PRN (23:04)
[2018-11-04 07:51] LABS: INR-International Normal Ratio 2.7
[2018-11-04] MEDS: Hydrochlorothiazide 25 MG TAB PO SCH (08:52)
[2018-11-04] MEDS: Gabapentin 100 MG CAP PO SCH ×2 (08:52→20:49)
[2018-11-04] MEDS: Pioglitazone HCl 15 MG TAB PO SCH (08:52)
[2018-11-04] MEDS: Fluconazole 100 MG TAB PO SCH (08:52)
[2018-11-04] MEDS: Amlodipine 10 MG TAB PO SCH (08:52)
[2018-11-04] MEDS: cloNIDine 0.1 MG TAB PO SCH ×2 (08:52→20:49)
[2018-11-04] MEDS: guaiFENesin ER 600 MG TAB PO SCH ×2 (08:52→20:49)
[2018-11-04] MEDS: Nystatin 500,000 UNITS/5 ML UDCUP SSW SCH ×4 (08:53→20:50)
[2018-11-04] MEDS: Meclizine HCl 25 MG TAB PO SCH ×2 (08:53→20:50)
[2018-11-05] MEDS: Fluconazole 100 MG TAB PO SCH (08:11)
[2018-11-05] MEDS: cloNIDine 0.1 MG TAB PO SCH ×2 (08:11→21:27)
[2018-11-05] MEDS: guaiFENesin ER 600 MG TAB PO SCH ×2 (08:11→21:28)
[2018-11-05] MEDS: Amlodipine 10 MG TAB PO SCH (08:11)
[2018-11-05] MEDS: Meclizine HCl 25 MG TAB PO SCH ×2 (08:12→21:28)
[2018-11-05] MEDS: Nystatin 500,000 UNITS/5 ML UDCUP SSW SCH ×4 (08:12→21:28)
[2018-11-05] MEDS: Gabapentin 100 MG CAP PO SCH ×2 (08:12→21:28)
[2018-11-05] MEDS: Hydrochlorothiazide 25 MG TAB PO SCH (08:12)
[2018-11-05] MEDS: Pioglitazone HCl 15 MG TAB PO SCH (08:12)
[2018-11-05 10:15] LABS: INR-International Normal Ratio 2.4; Prothrombin Time 26.5 SEC (12.0-14.7)
[2018-11-05] MEDS: Lorazepam 0.5 MG TAB PO PRN (21:28)
[2018-11-05] MEDS: HYDROcodone/Acetaminophen 5/325 mg Tablet PO PRN (23:52)
[2018-11-06 04:55] VITALS: TEMP 98.2
[2018-11-06] MEDS: Nystatin 500,000 UNITS/5 ML UDCUP SSW SCH ×2 (10:02→14:03)
[2018-11-06] MEDS: Amlodipine 10 MG TAB PO SCH (10:03)
[2018-11-06] MEDS: cloNIDine 0.1 MG TAB PO SCH (10:03)
[2018-11-06] MEDS: Gabapentin 100 MG CAP PO SCH (10:03)
[2018-11-06] MEDS: Pioglitazone HCl 15 MG TAB PO SCH (10:04)
[2018-11-06] MEDS: Fluconazole 100 MG TAB PO SCH (10:04)
[2018-11-06] MEDS: Meclizine HCl 25 MG TAB PO SCH (10:05)
[2018-11-06] MEDS: Hydrochlorothiazide 25 MG TAB PO SCH (10:05)
[2018-11-06] MEDS: guaiFENesin ER 600 MG TAB PO SCH (10:08)
[2018-11-06] MEDS: Ondansetron PF 4 MG/2 ML Vial IVP PRN (12:29)
[2018-11-06 16:41] VITALS: BP 147/69
--- NOTE | 2018-11-07 14:04 | EKG ---
Test Reason : Blood Pressure : / mmHG Vent. Rate : 097 BPM Atrial Rate : 097 BPM P-R Int : 142 ms QRS Dur : 120 ms QT Int : 372 ms P-R-T Axes : 065 009 -05 degrees QTc Int : 472 ms Sinus rhythm with Premature supraventricular complexes Right bundle branch block Abnormal ECG Confirmed by CARA PEDRO, RED ([id number]), editor newspaper MARCELO WILSON ([id number]) on 11/07/2018 2:04:29 PM Referred By: Confirmed By:RED MARROQUIN MD
== END 2018-11-06 17:47 | disposition home or self-care (01) | DRG 871 ==
LOC: ERS 02:06 → ERHOLD 04:45 → 2NO 10:26 → T4-B 10-28 07:10
PROVIDERS: ADMIT Specialist; ATTEND Specialist
DX: A41.9 Sepsis, unspecified organism (principal); J18.9 Pneumonia, unspecified organism; S82.402A Unspecified fracture of shaft of left fibula, initial encounter for closed fracture; W19.XXXA Unspecified fall, initial encounter; Y92.9 Unspecified place or not applicable; I50.9 Heart failure, unspecified; J44.9 Chronic obstructive pulmonary disease, unspecified; E03.9 Hypothyroidism, unspecified; I11.0 Hypertensive heart disease with heart failure; I48.91 Unspecified atrial fibrillation; E11.42 Type 2 diabetes mellitus with diabetic polyneuropathy; R42 Dizziness and giddiness; E66.01 Morbid (severe) obesity due to excess calories; Z68.39 Body mass index [BMI] 39.0-39.9, adult; Z88.0 Allergy status to penicillin; Z91.013 Allergy to seafood; Z79.01 Long term (current) use of anticoagulants; Z96.651 Presence of right artificial knee joint
CPT/HCPCS: 36415; 36416; 70450; 71045; 71046; 71250; 80048; 80053; 80202; 82553; 83036; 83605; 83880; 84443; 84484; 85025; 85610; 85730; 87040; 87633; 87899; 93005; 94640; 96361; 96365; 96367; 96368; 96375; C9113; G8996-GN-CJ; G8997-GN-CI; J0131; J0692; J1956; J2060; J2405; J3370; J7050; J7620

== ENCOUNTER 2018-12-19 14:24 | Emergency (ER) | payer MEDICARE ==
--- NOTE | 2018-12-19 15:39 | RAD ---
LEFT FOOT THREE VIEWS: History: Plantar wound. Left leg pain and swelling. Comparison: Left foot, 01-16-17. FINDINGS: There are healing fractures involving the base of the 2nd, 3rd, and 4th metatarsals. Osteal reaction and callus formation is seen and there is sclerosis along the fracture lines. Degenerative changes of the intertarsal joints. Degenerative changes at the 1st, 3rd, 4th, and 5th MT P joints which appear stable from prior exam. Degenerative spurring at the tibiotalar joint appears s table from prior exam. Tiny calcification above the Achilles insertion is stable from prior exam. IMPRESSION: Subacute healing nondisplaced fractures involving the base of the 2nd, 3rd, and 4th metatarsals. POS: [facility]
--- NOTE | 2018-12-19 15:57 | ULT ---
ULTRASOUND WITH DOPPLER DUPLEX VENOUS LOWER EXTREMITY LEFT: DATE: 12/19/18 HISTORY: 78-year-old female with left lower extremity pain. TECHNIQUE: Color flow Doppler, spectral waveform analysis of pulsed Doppler, and lopez-scale imaging with charley claudine and augmentation, were used to evaluate the left common femoral, femoral, popliteal, posterior t ibial, and superficial femoral, veins; and the proximal portions of the profunda femoral and greater saphenous, veins. FINDINGS: There is normal compressibility, demonstration of blood flow by color Doppler and pulsed Doppler, and response to augmentation, in all interrogated veins. There is a cystic mass in the left popliteal fossa measuring approximately 4.3 x 1.2 x 2.5 cm. This i s larger than it was on the 03/25/11 ultrasound. There is a new finding of an approximately 1.0 x 0.5 cm solid mass within it, which is probably a focal thrombus. IMPRESSION: 1. No deep vein thrombosis in the left lower extremity. 2. Complicated left Chen's cyst. melissa POS: [facility]
[2018-12-19] MEDS ORDERED: Clindamycin 150 MG CAP ONE (17:01)
== END 2018-12-19 17:27 | disposition home or self-care (01) ==
LOC: ERS 14:24
DX: L03.116 Cellulitis of left lower limb (principal); J44.9 Chronic obstructive pulmonary disease, unspecified; E03.9 Hypothyroidism, unspecified; E11.9 Type 2 diabetes mellitus without complications; I10 Essential (primary) hypertension; I48.91 Unspecified atrial fibrillation; Z79.899 Other long term (current) drug therapy; Z79.01 Long term (current) use of anticoagulants; Z79.51 Long term (current) use of inhaled steroids

== ENCOUNTER 2019-02-10 08:25 | Emergency (ER) | payer MEDICARE ==
[2019-02-10 08:56] LABS: Hemoglobin 13.3 g/dL (12.0-16.0); Mean Corpuscular HGB CONC 31.3 g/dL (32.0-36.0); Mean Corpuscular Hemoglobin 30.2 pg (27.0-31.0); Mean Corpuscular Volume 96.4 fL (78.0-98.0); Mean Platelet Volume 8.2 fL (7.4-10.4); Platelet Count 222 thou/uL (130-400); RBC Distribution Width 14.2 % (11.5-14.5)
[2019-02-10 09:11] LABS: MDiff Complete? YES
[2019-02-10 09:12] LABS: Band 1 % (5-11); Eosinophils 1 % (0-10); Lymphocytes 10 % (21-51); Monocytes 3 % (0-10); Neutrophil 85 % (42-75); RBC Morphology Normal
--- NOTE | 2019-02-10 09:20 | RAD ---
CHEST ONE VIEW: History: Low grade fever. Difficulty breathing. History of previous pneumonia. Comparison: Multiple prior examinations dating back to 10-27-18. FINDINGS: Heart size appears borderline. There are atherosclerotic changes of the aorta. The right upper lobe p arenchymal changes have largely resolved but there is still some residual change in the right upper l obes present which could represent residual scarring given the rather dense area of consolidation ashley t has been present on previous exams. Left lung shows no definite focal infiltrative process. IMPRESSION: 1. Minimal cardiomegaly. 2. Some persistent parenchymal change in the right upper lobe, definitely improved as compared to the previous exams, the most recent of which is a 11-24-18 study. Residual changes could indicate some re current pneumonia but could easily represent scar. POS: [facility]
[2019-02-10 09:21] LABS: ALT (SGPT) 12 U/L (8-55); AST (SGOT) 29 U/L (5-34); Albumin 3.6 g/dL (3.4-4.8); Alkaline Phosphatase 45 U/L (40-150); Anion Gap 15 mmol/L (10-20); BUN (Urea Nitrogen) 11 mg/dL (9.8-20.1); Bilirubin, Total 0.5 mg/dL (0.2-1.2); Calc. Creatinine Clearance 0 mL/min (70-130); Calcium 8.6 mg/dL (7.8-10.44); Carbon Dioxide 24 mmol/L (23-31); Chloride 103 mmol/L (98-107); Estimated GFR-MDRD 35; Globulin 3.4 g/dL (2.4-3.5); Glucose 124 mg/dL (83-110); Lipase 12 U/L (8-78); Potassium 4.8 mmol/L (3.5-5.1); Sodium 137 mmol/L (136-145)
[2019-02-10] MEDS ORDERED: Promethazine HCl 25 MG/ML VIAL ONE (09:29)
[2019-02-10] MEDS ORDERED: Albuterol Sulfate 2.5 mg/3 ml Neb ONE (11:36)
[2019-02-10 11:46] LABS: Bilirubin Negative (Negative); Blood, Urine Small (Negative); Clarity CLEAR (Clear); Glucose, Urine (Dipstick) Negative (Negative); Leukocyte Negative (Negative); Nitrite Negative (Negative); Protein, Urine (Dipstick) Trace mg/dL (Neg-Trace); Specific Gravity, Urine 1.006 (1.002-1.036); Urobilinogen 0.2 mg/dL (0.2-1.0); pH, Urine 7.5 (5.0-9.0)
[2019-02-10 11:49] LABS: Bacteria/HPF None Seen HPF (None Seen); Hyaline Casts/LPF 4-6 HYALINE CAST LPF (0-3 Hyaline); Pathc Cast-AUWi Flag 1.49 (0-2.49); Squamous Epithelial 0-3 HPF (0-3); WBC/HPF 0-3 HPF (0-3)
== END 2019-02-10 14:00 | disposition home or self-care (01) ==
LOC: ERS 08:25
DX: R11.2 Nausea with vomiting, unspecified (principal); I11.0 Hypertensive heart disease with heart failure; I50.9 Heart failure, unspecified; J44.9 Chronic obstructive pulmonary disease, unspecified; E03.9 Hypothyroidism, unspecified; E11.9 Type 2 diabetes mellitus without complications; I48.91 Unspecified atrial fibrillation; Z79.899 Other long term (current) drug therapy; Z79.01 Long term (current) use of anticoagulants
CPT/HCPCS: 36415; 71045; 80053; 81003; 81015; 83690; 84484; 85025; 93005; 94640; 96365; 96366; J2550; J7611

== ENCOUNTER 2019-05-29 10:15 | Outpatient (CLI) | payer MEDICARE ==
--- NOTE | 2019-05-29 12:22 | RAD ---
LUMBAR SPINE NEUTRAL, FLEXION, AND EXTENSION RADIOGRAPHS: Date: 05/29/2019 COMPARISON: 05/16/2017 HISTORY: Chronic back pain, difficulty walking, pain in legs and hips FINDINGS: There is atherosclerotic calcification of the abdominal aorta. There is multilevel disc space narrowing, most prominent at L2-3 and L5-S1. Multilevel lower lumbar s pine facet hypertrophy is noted. No acute fracture is seen. There is no anterolisthesis or retrolisthesis noted on the neutral, flexion, or extension views. IMPRESSION: Degenerative change as detailed above. No anterolisthesis noted on neutral, flexion, or extension lat eral views. Transcribed Date/Time: 05/29/2019 12:48 PM
== END 2019-05-29 10:16 | disposition home or self-care (01) ==
LOC: RAD 10:15
PROVIDERS: ATTEND Nurse Practitioner Family
DX: M47.816 Spondylosis without myelopathy or radiculopathy, lumbar region (principal); M51.36 Other intervertebral disc degeneration, lumbar region; M51.37 Other intervertebral disc degeneration, lumbosacral region; M89.38 Hypertrophy of bone, other site
CPT/HCPCS: 72100

== ENCOUNTER 2019-08-25 14:45 | Outpatient (CLI) | payer MEDICARE ==
--- NOTE | 2019-08-25 15:30 | RAD ---
PA AND LATERAL CHEST: HISTORY: COPD COMPARISON: 11/01/2018 01/31/2019 FINDINGS: The heart size is enlarged. The aorta is tortuous. Chronic changes are again seen. No lobar consolida tion, pneumothoraces or pleural effusions are identified. There are degenerative changes in the spine . IMPRESSION: No acute process. POS: [facility]
== END 2019-08-25 14:46 | disposition home or self-care (01) ==
LOC: BICRAD 14:45
PROVIDERS: ATTEND Specialist
DX: J44.9 Chronic obstructive pulmonary disease, unspecified (principal); R09.89 Other specified symptoms and signs involving the circulatory and respiratory systems
CPT/HCPCS: 71046

== ENCOUNTER 2019-09-09 14:45 | Outpatient (CLI) | payer MEDICARE ==
--- NOTE | 2019-09-09 15:36 | ULT ---
ULTRASOUND ABDOMEN: 09/09/19 HISTORY: Left upper quadrant pain. FINDINGS: The liver demonstrates homogeneous echotexture without focal mass or intrahepatic ductal dilatation. Echogenic foci in the spleen are likely due to old granulomatous disease. The spleen is normal in siz e measuring 10.4 x 5.5 x 4.4 cm. No gallstones, gallbladder wall thickening or pericholecystic fluid is seen. The common duct measures 5 mm in diameter. The visualized portions of the pancreas, aorta and IVC are unremarkable. No hydron ephrosis seen on either side. There is a 9 mm cyst in the right kidney. No free fluid is noted. IMPRESSION: 1. 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 2. Right renal cyst. POS: [facility]
== END 2019-09-09 14:46 | disposition home or self-care (01) ==
LOC: BICULT 14:45
PROVIDERS: ATTEND Specialist
DX: R10.812 Left upper quadrant abdominal tenderness (principal); N28.1 Cyst of kidney, acquired; L92.9 Granulomatous disorder of the skin and subcutaneous tissue, unspecified
CPT/HCPCS: 93975

== ENCOUNTER 2020-10-12 11:59 | Outpatient (CLI) | payer MEDICARE ==
--- NOTE | 2020-10-12 12:20 | RAD ---
EXAM: CHEST TWO VIEWS 10/12/2020 12:17 PM HISTORY: Pneumonia with shortness of breath COMPARISON: Prior exam dated August 25, 2019 FINDINGS: Lungs: Hyperinflated. Areas of subsegmental volume loss versus scarring in the left midlung is stabl e. Heart: Moderate cardiomegaly is stable. Pulmonary Vessels: Normal. Costophrenic Angles: Clear. Pneumothorax: None. Osseous Structures: There is scattered degenerative and osteoarthritic change present. Additional Findings: None. IMPRESSION: No significant acute intrathoracic disease.
== END 2020-10-12 12:00 | disposition home or self-care (01) ==
LOC: BICRAD 11:59
PROVIDERS: ATTEND Specialist
DX: R06.02 Shortness of breath (principal); J18.9 Pneumonia, unspecified organism; R53.83 Other fatigue
CPT/HCPCS: 71046

== ENCOUNTER 2020-10-14 14:12 | Outpatient (CLI) | payer MEDICARE ==
--- NOTE | 2020-10-14 14:50 | BD ---
EXAM: DEXA bone density examination HISTORY: 79-year-old postmenopausal female for screening COMPARISON: None FINDINGS: L1--bone mineral density 0.848 g/sq cm; T score -1.3 L2--bone mineral density 0.955 g/sq cm; T score -0.7 L3--bone mineral density 1.006 g/sq cm; T score -0.7 L4--bone mineral density 0.794 g/sq cm; T score -2.4 Total L1-L4--bone mineral density 0.901 g/sq cm; T score -1.3 Left femoral neck--bone mineral density0.504; T score -3.1 Total proximal left femur--bone mineral density 0.719; T score -1.8 IMPRESSION: Osteoporosis.
== END 2020-10-14 14:13 | disposition home or self-care (01) ==
LOC: BICMAMMO 14:12
PROVIDERS: ATTEND Specialist
DX: M81.0 Age-related osteoporosis without current pathological fracture (principal)
CPT/HCPCS: 77080

== ENCOUNTER 2021-08-23 15:05 | Outpatient (CLI) | payer MEDICARE | END 2021-08-23 15:06 | disposition home or self-care (01) | LOC: BICMAMMO 15:05 | PROVIDERS: ATTEND Nurse Practitioner Family | DX: N63.20 Unspecified lump in the left breast, unspecified quadrant (principal) | CPT/HCPCS: 76642; 77066; G0279 ==

== ENCOUNTER 2021-10-18 07:46 | Emergency (ER) | payer OTHER, MEDICARE ==
[2021-10-18 08:52] LABS: #Eosinphils 0.3 thou/uL (0.0-0.7); #Lymphocytes 1.4 thou/uL (1.20-3.40); #Monocytes 0.9 thou/uL (0.11-0.59); #Neutrophils 4.8 thou/uL (1.40-6.50); %Basophils 0.4 % (0.0-1.0); %Eosinophils 4.7 % (0.0-10.0); %Lymphocytes 18.8 % (21.0-51.0); %Monocytes 12.4 % (0.0-10.0); %Neutrophils 63.7 % (42.0-75.0); Hemoglobin 13.5 g/dL (12.0-16.0); Mean Corpuscular HGB CONC 34.8 g/dL (32.0-36.0); Mean Corpuscular Hemoglobin 32.6 pg (27.0-31.0); Mean Corpuscular Volume 93.7 fL (78.0-98.0); Mean Platelet Volume 8.9 fL (7.4-10.4); Platelet Count 168 thou/uL (130-400); RBC Distribution Width 11.1 % (11.5-14.5); Red Blood Cell (RBC) Count 4.14 mill/uL (4.20-5.40); White Blood Cell (WBC) Count 7.5 thou/uL (4.8-10.8)
== END 2021-10-18 10:30 | disposition home or self-care (01) ==
LOC: ERS 07:46
DX: S09.90XA Unspecified injury of head, initial encounter (principal); S80.212A Abrasion, left knee, initial encounter; I63.9 Cerebral infarction, unspecified; E11.9 Type 2 diabetes mellitus without complications; E03.9 Hypothyroidism, unspecified; I48.91 Unspecified atrial fibrillation; I11.0 Hypertensive heart disease with heart failure; I50.9 Heart failure, unspecified; J44.9 Chronic obstructive pulmonary disease, unspecified; W01.198A Fall on same level from slipping, tripping and stumbling with subsequent striking against other object, initial encounter
CPT/HCPCS: 36415; 70450; 85025

== ENCOUNTER 2022-02-28 10:54 | Emergency (ER) | payer MEDICARE, OTHER ==
[2022-02-28] MEDS ORDERED: Ondansetron PF 4 MG/2 ML Vial ONE (12:14)
[2022-02-28] MEDS ORDERED: Morphine 4 MG/ML VIAL ONE (12:14)
[2022-02-28 12:38] LABS: #Eosinphils 0.3 thou/uL (0.0-0.7); #Lymphocytes 1.2 thou/uL (1.20-3.40); #Monocytes 0.9 thou/uL (0.11-0.59); %Basophils 0.2 % (0.0-1.0); %Eosinophils 3.8 % (0.0-10.0); %Lymphocytes 13.8 % (21.0-51.0); %Monocytes 10.9 % (0.0-10.0); %Neutrophils 71.3 % (42.0-75.0); Hemoglobin 13.8 g/dL (12.0-16.0); Mean Corpuscular HGB CONC 33.1 g/dL (32.0-36.0); Mean Corpuscular Hemoglobin 31.9 pg (27.0-31.0); Mean Corpuscular Volume 96.3 fL (78.0-98.0); Mean Platelet Volume 8.9 fL (7.4-10.4); Platelet Count 170 thou/uL (130-400); RBC Distribution Width 11.1 % (11.5-14.5); Red Blood Cell (RBC) Count 4.34 mill/uL (4.20-5.40); White Blood Cell (WBC) Count 8.4 thou/uL (4.8-10.8)
[2022-02-28 13:03] LABS: ALT (SGPT) 9 U/L (8-55); AST (SGOT) 16 U/L (5-34); Albumin 3.4 g/dL (3.4-4.8); Alkaline Phosphatase 44 U/L (40-110); Anion Gap 13 mmol/L (10-20); BUN (Urea Nitrogen) 19 mg/dL (9.8-20.1); Bilirubin, Total 0.5 mg/dL (0.2-1.2); Calc. Creatinine Clearance 0 mL/min (70-130); Calcium 8.1 mg/dL (7.8-10.44); Carbon Dioxide 27 mmol/L (23-31); Chloride 98 mmol/L (98-107); Globulin 3.3 g/dL (2.4-3.5); Glucose 175 mg/dL (83-110); Lipase 14 U/L (8-78); Potassium 4.7 mmol/L (3.5-5.1); Protein, Total 6.7 g/dL (5.8-8.1); Sodium 133 mmol/L (136-145)
[2022-02-28 14:09] LABS: Bilirubin Negative (Negative); Blood, Urine Negative (Negative); Clarity Clear (Clear); Glucose, Urine (Dipstick) Normal (Negative); Ketone, Urine Negative (Negative); Leukocyte Negative Leu/uL (Negative); Nitrite Negative (Negative); Protein, Urine (Dipstick) Negative (Neg-Trace); Specific Gravity, Urine 1.006 (1.002-1.036); Urobilinogen Normal mg/dL (Less than 2); pH, Urine 6.5 (5.0-9.0)
== END 2022-02-28 15:59 | disposition home or self-care (01) ==
LOC: ERS 10:54
DX: K59.00 Constipation, unspecified (principal); I11.0 Hypertensive heart disease with heart failure; I50.9 Heart failure, unspecified; J44.9 Chronic obstructive pulmonary disease, unspecified; E03.9 Hypothyroidism, unspecified; I48.91 Unspecified atrial fibrillation; M81.0 Age-related osteoporosis without current pathological fracture; E11.40 Type 2 diabetes mellitus with diabetic neuropathy, unspecified; Z79.01 Long term (current) use of anticoagulants; Z79.84 Long term (current) use of oral hypoglycemic drugs; Z79.899 Other long term (current) drug therapy
CPT/HCPCS: 74176; 80053; 81003; 82274; 83690; 85025; 96374; 96375; J2270; J2405

== ENCOUNTER 2022-03-13 00:49 | Emergency (ER) | payer OTHER ==
[2022-03-13 01:24] LABS: #Basophils 0.1 thou/uL (0.0-0.2); #Eosinphils 0.1 thou/uL (0.0-0.7); #Lymphocytes 1.5 thou/uL (1.20-3.40); #Monocytes 1.7 thou/uL (0.11-0.59); #Neutrophils 8.9 thou/uL (1.40-6.50); %Basophils 0.5 % (0.0-1.0); %Eosinophils 1.1 % (0.0-10.0); %Lymphocytes 11.9 % (21.0-51.0); %Monocytes 14.1 % (0.0-10.0); %Neutrophils 72.4 % (42.0-75.0); Hemoglobin 13.8 g/dL (12.0-16.0); Mean Corpuscular HGB CONC 34.3 g/dL (32.0-36.0); Mean Corpuscular Hemoglobin 32.8 pg (27.0-31.0); Mean Corpuscular Volume 95.4 fL (78.0-98.0); Mean Platelet Volume 7.6 fL (7.4-10.4); Platelet Count 311 thou/uL (130-400); RBC Distribution Width 11.1 % (11.5-14.5); Red Blood Cell (RBC) Count 4.22 mill/uL (4.20-5.40); White Blood Cell (WBC) Count 12.2 thou/uL (4.8-10.8)
[2022-03-13 01:58] LABS: ALT (SGPT) 10 U/L (8-55); AST (SGOT) 10 U/L (5-34); Albumin 3.6 g/dL (3.4-4.8); Alkaline Phosphatase 49 U/L (40-110); Anion Gap 12 mmol/L (10-20); BUN (Urea Nitrogen) 17 mg/dL (9.8-20.1); Bilirubin, Total 0.8 mg/dL (0.2-1.2); Calc. Creatinine Clearance 0 mL/min (70-130); Calcium 8.7 mg/dL (7.8-10.44); Carbon Dioxide 30 mmol/L (23-31); Chloride 92 mmol/L (98-107); Globulin 3.6 g/dL (2.4-3.5); Glucose 138 mg/dL (83-110); Lipase 21 U/L (8-78); Potassium 5.1 mmol/L (3.5-5.1); Protein, Total 7.2 g/dL (5.8-8.1); Sodium 129 mmol/L (136-145)
[2022-03-13 02:05] LABS: Bilirubin Negative (Negative); Blood, Urine Negative (Negative); Clarity Clear (Clear); Glucose, Urine (Dipstick) Normal (Negative); Ketone, Urine Negative (Negative); Leukocyte Negative Leu/uL (Negative); Nitrite Negative (Negative); Protein, Urine (Dipstick) 20 mg/dL (Neg-Trace); Specific Gravity, Urine 1.018 (1.002-1.036); Urobilinogen Normal mg/dL (Less than 2); pH, Urine 5.5 (5.0-9.0)
[2022-03-13] MEDS ORDERED: methylPREDNISolone Sod Succ/PF 125 MG/2 ML VIAL ONE (04:48)
[2022-03-13] MEDS ORDERED: Famotidine/PF 20 mg/2ml Vial ONE (04:48)
[2022-03-13] MEDS ORDERED: diphenhydrAMINE 50 MG/ML VIAL ONE (04:48)
[2022-03-13] MEDS ORDERED: Ondansetron PF 4 MG/2 ML Vial ONE (04:49)
[2022-03-13] MEDS ORDERED: Morphine 4 MG/ML VIAL ONE (04:49)
[2022-03-13] MEDS ORDERED: Labetalol HCl 100 MG/20 ML VIAL ONE (08:18)
[2022-03-13] MEDS ORDERED: WATER IVPB SCH (08:30)
[2022-03-13] MEDS ORDERED: DEXTROSE IVPB SCH (08:30)
[2022-03-13] MEDS ORDERED: LABETALOL HCL IVPB SCH (08:30)
[2022-03-13] MEDS ORDERED: ADMIXTURE FEE IVPB SCH (08:30)
[2022-03-13] MEDS ORDERED: Phytonadione 10 MG/ML AMP ONE (09:44)
[2022-03-13] MEDS ORDERED: HUMAN PROTHROMBIN COMPLX IV SCH (10:00)
[2022-03-13] MEDS ORDERED: ADMIXTURE FEE IV SCH (10:00)
[2022-03-13 10:09] LABS: INR-International Normal Ratio 1.8; PTT 51.9 sec (22.9-36.1)
== END 2022-03-13 09:55 | disposition short-term general hospital (02) ==
LOC: ERS 00:49
DX: I71.1 Thoracic aortic aneurysm, ruptured (principal); I11.0 Hypertensive heart disease with heart failure; I50.9 Heart failure, unspecified; E11.9 Type 2 diabetes mellitus without complications; I48.91 Unspecified atrial fibrillation; J44.9 Chronic obstructive pulmonary disease, unspecified; E03.9 Hypothyroidism, unspecified; Z79.01 Long term (current) use of anticoagulants; Z79.84 Long term (current) use of oral hypoglycemic drugs; Z79.899 Other long term (current) drug therapy
CPT/HCPCS: 36415; 71275; 74174; 74176; 80053; 81003; 83690; 85025; 85610; 85730; 93005; 96374; 96375; J1200; J2270; J2405; J2930; J3430; J7070; J7168; S0028

== ENCOUNTER 2022-03-23 16:43 | Inpatient (IN) | payer MEDICARE ==
[~2022-03-23 16:43] MED LIST: Iopamidol-370 76% 500 ML 1 ML ONE
[2022-03-23 17:27] LABS: #Eosinphils 0.1 thou/uL (0.0-0.7); #Lymphocytes 1.4 thou/uL (1.20-3.40); #Monocytes 1.3 thou/uL (0.11-0.59); %Basophils 0.2 % (0.0-1.0); %Eosinophils 1.2 % (0.0-10.0); %Lymphocytes 12.9 % (21.0-51.0); %Monocytes 12.4 % (0.0-10.0); %Neutrophils 73.4 % (42.0-75.0); Hemoglobin 10.6 g/dL (12.0-16.0); Mean Corpuscular HGB CONC 32.6 g/dL (32.0-36.0); Mean Corpuscular Hemoglobin 31.6 pg (27.0-31.0); Mean Corpuscular Volume 96.9 fL (78.0-98.0); Mean Platelet Volume 7.3 fL (7.4-10.4); Platelet Count 291 thou/uL (130-400); RBC Distribution Width 11.7 % (11.5-14.5); Red Blood Cell (RBC) Count 3.37 mill/uL (4.20-5.40); White Blood Cell (WBC) Count 10.8 thou/uL (4.8-10.8)
[2022-03-23] MEDS ORDERED: diphenhydrAMINE 50 MG/ML VIAL ONE (17:30)
[2022-03-23] MEDS ORDERED: methylPREDNISolone Sod Succ/PF 125 MG/2 ML VIAL ONE (17:30)
[2022-03-23] MEDS ORDERED: Famotidine/PF 20 mg/2ml Vial ONE (17:30)
[2022-03-23] MEDS ORDERED: methylPREDNISolone Sod Succ 40 MG VIAL ONE (17:31)
[2022-03-23 17:37] LABS: PTT 45.7 sec (22.9-36.1); Prothrombin Time 23.1 sec (12.0-14.7)
[2022-03-23 17:39] LABS: D-Dimer Test 0.62 *mcg/mL (0.27-0.43)
[2022-03-23 17:45] LABS: ALT (SGPT) 8 U/L (8-55); AST (SGOT) 10 U/L (5-34); Albumin 3.2 g/dL (3.4-4.8); Alkaline Phosphatase 37 U/L (40-110); Anion Gap 12 mmol/L (10-20); BUN (Urea Nitrogen) 18 mg/dL (9.8-20.1); Bilirubin, Total 0.3 mg/dL (0.2-1.2); Calc. Creatinine Clearance 0 mL/min (70-130); Calcium 8.2 mg/dL (7.8-10.44); Carbon Dioxide 30 mmol/L (23-31); Chloride 97 mmol/L (98-107); Globulin 3.1 g/dL (2.4-3.5); Glucose 136 mg/dL (83-110); Protein, Total 6.3 g/dL (5.8-8.1); Sodium 135 mmol/L (136-145)
[2022-03-23] MEDS ORDERED: Nitroglycerin 2% Ointment 1 INCH/1 GM Packet ONE (18:34)
[2022-03-23] MEDS ORDERED: Furosemide 40 MG/4 ML VIAL ONE (20:06)
[2022-03-23] MEDS ORDERED: Nitroglycerin 0.4 MG TAB 1 EACH ONE (20:19)
[2022-03-23 20:56] LABS: Troponin I 0.046 ng/mL (< 0.028)
[2022-03-23] MEDS ORDERED: Acetaminophen 325 MG TAB PO PRN (21:15)
[2022-03-23] MEDS ORDERED: Ondansetron PF 4 MG/2 ML Vial IVP PRN (21:15)
[2022-03-23] MEDS ORDERED: Ondansetron ODT 4 MG TAB SL PRN (21:15)
[2022-03-23 21:23] VITALS: BMI 36.5
[2022-03-23 23:48] LABS: Troponin I 0.042 ng/mL (< 0.028)
[2022-03-24] MEDS ORDERED: Ondansetron PF 4 MG/2 ML Vial IVP PRN (01:34)
[2022-03-24 02:13] LABS: SARS-CoV-2 PCR by NAA Not Detected (NotDetected)
[2022-03-24] MEDS ORDERED: Dextrose 50% Abboject 50 ML SYRINGE IVP PRN (02:15)
[2022-03-24] MEDS ORDERED: Dextrose 5% in Water 1,000 ML IV PRN (02:15)
[2022-03-24] MEDS ORDERED: Insulin Regular 300 UNITS/3 ML VIAL SC PRN (02:15)
[2022-03-24 04:30] LABS: #Lymphocytes 0.5 thou/uL (1.20-3.40); #Monocytes 0.3 thou/uL (0.11-0.59); #Neutrophils 9.9 thou/uL (1.40-6.50); %Basophils 0.1 % (0.0-1.0); %Eosinophils 0.2 % (0.0-10.0); %Monocytes 2.4 % (0.0-10.0); %Neutrophils 92.3 % (42.0-75.0); Hemoglobin 10.9 g/dL (12.0-16.0); Mean Corpuscular HGB CONC 32.3 g/dL (32.0-36.0); Mean Corpuscular Hemoglobin 31.6 pg (27.0-31.0); Mean Corpuscular Volume 97.9 fL (78.0-98.0); Mean Platelet Volume 7.6 fL (7.4-10.4); Platelet Count 315 thou/uL (130-400); RBC Distribution Width 11.9 % (11.5-14.5); Red Blood Cell (RBC) Count 3.46 mill/uL (4.20-5.40); White Blood Cell (WBC) Count 10.8 thou/uL (4.8-10.8)
[2022-03-24 04:40] LABS: Hemoglobin A1c 5.8 % (4.0-6.0)
[2022-03-24 04:55] LABS: Anion Gap 13 mmol/L (10-20); BUN (Urea Nitrogen) 21 mg/dL (9.8-20.1); Calc. Creatinine Clearance 34 mL/min (70-130); Calcium 7.9 mg/dL (7.8-10.44); Carbon Dioxide 28 mmol/L (23-31); Chloride 96 mmol/L (98-107); Glucose 353 mg/dL (83-110); Potassium 3.7 mmol/L (3.5-5.1); Sodium 133 mmol/L (136-145)
[2022-03-24] MEDS: Insulin Regular 300 UNITS/3 ML VIAL SC PRN ×2 (05:37→17:51)
[2022-03-24] MEDS ORDERED: Furosemide 40 MG/4 ML VIAL SLOW IVP SCH ×2 (06:00→20:30)
[2022-03-24] MEDS: Mometasone 200 MCG/Formoterol 5 MCG 120 PUFF INHALER INH SCH ×2 (07:07→18:58)
[2022-03-24] MEDS: Pioglitazone HCl 15 MG TAB PO SCH (10:02)
[2022-03-24] MEDS: cloNIDine 0.1 MG TAB PO SCH (10:02)
[2022-03-24] MEDS: Alogliptin 6.25 MG TAB PO SCH (10:03)
[2022-03-24] MEDS ORDERED: cloNIDine 0.1 MG TAB PO PRN (16:59)
[2022-03-24] MEDS ORDERED: diphenhydrAMINE 25 MG CAP PO PRN (17:33)
[2022-03-24] MEDS: cloNIDine 0.1 MG TAB PO PRN (17:48)
[2022-03-24] MEDS: Warfarin Sodium 0.5 MG HALF.TAB PO SCH (17:55)
[2022-03-24] MEDS: Lidocaine 5% Patch TD SCH (17:55)
[2022-03-24] MEDS ORDERED: Budesonide 0.5 MG/2 ML NEB NEB SCH (20:30)
[2022-03-24] MEDS: Montelukast Sodium 10 mg Tablet PO SCH (20:40)
[2022-03-24] MEDS: guaiFENesin ER 600 MG TAB PO SCH (20:40)
[2022-03-24] MEDS: Nystatin 500,000 UNITS/5 ML UDCUP PO SCH (20:55)
[2022-03-25] MEDS: cloNIDine 0.1 MG TAB PO PRN (00:18)
[2022-03-25 04:25] LABS: #Eosinphils 0.1 thou/uL (0.0-0.7); #Lymphocytes 1.4 thou/uL (1.20-3.40); #Neutrophils 8.7 thou/uL (1.40-6.50); %Basophils 0.1 % (0.0-1.0); %Eosinophils 0.5 % (0.0-10.0); %Lymphocytes 12.2 % (21.0-51.0); %Monocytes 8.9 % (0.0-10.0); %Neutrophils 78.2 % (42.0-75.0); Hemoglobin 10.5 g/dL (12.0-16.0); Mean Corpuscular HGB CONC 32.6 g/dL (32.0-36.0); Mean Corpuscular Hemoglobin 31.9 pg (27.0-31.0); Mean Corpuscular Volume 97.9 fL (78.0-98.0); Mean Platelet Volume 7.5 fL (7.4-10.4); Platelet Count 278 thou/uL (130-400); RBC Distribution Width 11.9 % (11.5-14.5); Red Blood Cell (RBC) Count 3.28 mill/uL (4.20-5.40); White Blood Cell (WBC) Count 11.1 thou/uL (4.8-10.8)
[2022-03-25 04:36] LABS: Prothrombin Time 23.1 sec (12.0-14.7)
[2022-03-25 04:49] LABS: Anion Gap 11 mmol/L (10-20); BUN (Urea Nitrogen) 25 mg/dL (9.8-20.1); Calc. Creatinine Clearance 32 mL/min (70-130); Calcium 7.8 mg/dL (7.8-10.44); Carbon Dioxide 33 mmol/L (23-31); Chloride 95 mmol/L (98-107); Glucose 134 mg/dL (83-110); Potassium 4.2 mmol/L (3.5-5.1); Sodium 135 mmol/L (136-145)
[2022-03-25] MEDS: Transdermal Patch Removal TOP SCH (06:20)
[2022-03-25] MEDS: Budesonide 0.5 MG/2 ML NEB NEB SCH ×2 (06:32→19:29)
[2022-03-25] MEDS ORDERED: Furosemide 40 MG/4 ML VIAL SLOW IVP SCH (09:00)
[2022-03-25] MEDS: Nystatin 500,000 UNITS/5 ML UDCUP PO SCH ×4 (10:23→20:25)
[2022-03-25] MEDS: Alogliptin 6.25 MG TAB PO SCH (10:23)
[2022-03-25] MEDS: Pioglitazone HCl 15 MG TAB PO SCH (10:23)
[2022-03-25] MEDS: cloNIDine 0.1 MG TAB PO SCH (10:24)
[2022-03-25] MEDS: guaiFENesin ER 600 MG TAB PO SCH ×2 (10:24→20:25)
[2022-03-25] MEDS: Polyethylene Glycol 3350 17 GM Packet PO SCH (10:25)
[2022-03-25] MEDS ORDERED: hydrALAZINE 20 MG/ML VIAL SLOW IVP PRN (12:21)
[2022-03-25] MEDS ORDERED: NIFEdipine XL 60 MG TAB PO SCH (12:30)
[2022-03-25] MEDS ORDERED: Fluconazole 100 MG TAB PO SCH (15:15)
[2022-03-25] MEDS: Lidocaine 5% Patch TD SCH (17:51)
[2022-03-25] MEDS: Warfarin Sodium 0.5 MG HALF.TAB PO SCH (17:52)
[2022-03-25] MEDS: Montelukast Sodium 10 mg Tablet PO SCH (20:25)
[2022-03-26 04:53] LABS: #Eosinphils 0.1 thou/uL (0.0-0.7); #Lymphocytes 1.4 thou/uL (1.20-3.40); #Monocytes 1.2 thou/uL (0.11-0.59); #Neutrophils 7.1 thou/uL (1.40-6.50); %Basophils 0.2 % (0.0-1.0); %Eosinophils 1.1 % (0.0-10.0); %Lymphocytes 14.5 % (21.0-51.0); %Neutrophils 72.2 % (42.0-75.0); Hemoglobin 11.4 g/dL (12.0-16.0); Mean Corpuscular HGB CONC 34.8 g/dL (32.0-36.0); Mean Corpuscular Hemoglobin 34.1 pg (27.0-31.0); Mean Corpuscular Volume 97.8 fL (78.0-98.0); Platelet Count 326 thou/uL (130-400); RBC Distribution Width 12.6 % (11.5-14.5); Red Blood Cell (RBC) Count 3.36 mill/uL (4.20-5.40); White Blood Cell (WBC) Count 9.8 thou/uL (4.8-10.8)
[2022-03-26 05:01] LABS: INR-International Normal Ratio 1.8; Prothrombin Time 21.5 sec (12.0-14.7)
[2022-03-26 05:19] LABS: Anion Gap 13 mmol/L (10-20); BUN (Urea Nitrogen) 24 mg/dL (9.8-20.1); Calc. Creatinine Clearance 40 mL/min (70-130); Calcium 8.1 mg/dL (7.8-10.44); Carbon Dioxide 30 mmol/L (23-31); Chloride 96 mmol/L (98-107); Glucose 122 mg/dL (83-110); Potassium 4.1 mmol/L (3.5-5.1); Sodium 135 mmol/L (136-145)
[2022-03-26] MEDS: Transdermal Patch Removal TOP SCH (06:02)
[2022-03-26] MEDS: Budesonide 0.5 MG/2 ML NEB NEB SCH (06:47)
[2022-03-26] MEDS ORDERED: NIFEdipine XL 30 MG TAB PO SCH (09:00)
[2022-03-26] MEDS ORDERED: Fluconazole 100 MG TAB PO SCH (09:00)
[2022-03-26] MEDS: guaiFENesin ER 600 MG TAB PO SCH (09:42)
[2022-03-26] MEDS: Pioglitazone HCl 15 MG TAB PO SCH (09:42)
[2022-03-26] MEDS: Alogliptin 6.25 MG TAB PO SCH (09:42)
[2022-03-26] MEDS: cloNIDine 0.1 MG TAB PO SCH (09:43)
[2022-03-26] MEDS: Nystatin 500,000 UNITS/5 ML UDCUP PO SCH ×2 (09:44→13:49)
[2022-03-26] MEDS: Polyethylene Glycol 3350 17 GM Packet PO SCH (09:45)
[2022-03-26] MEDS: Insulin Regular 300 UNITS/3 ML VIAL SC PRN (13:49)
[2022-03-26] MEDS ORDERED: Warfarin Sodium 1 MG TAB PO SCH (17:00)
[2022-03-26 17:10] VITALS: BP 154/70; TEMP 97.5
== END 2022-03-26 16:20 | disposition home or self-care (01) | DRG 291 ==
LOC: ERS 16:43 → 2NO 20:14
PROVIDERS: ADMIT Specialist; ATTEND Specialist
DX: I11.0 Hypertensive heart disease with heart failure (principal); I50.33 Acute on chronic diastolic (congestive) heart failure; Z20.822 Contact with and (suspected) exposure to COVID-19; J44.9 Chronic obstructive pulmonary disease, unspecified; I48.0 Paroxysmal atrial fibrillation; M10.9 Gout, unspecified; Z90.710 Acquired absence of both cervix and uterus; Z91.041 Radiographic dye allergy status; Z90.09 Acquired absence of other part of head and neck; Z88.8 Allergy status to other drugs, medicaments and biological substances; Z88.0 Allergy status to penicillin; Z79.02 Long term (current) use of antithrombotics/antiplatelets; Z79.899 Other long term (current) drug therapy; Z79.51 Long term (current) use of inhaled steroids; Z79.4 Long term (current) use of insulin
CPT/HCPCS: 36415; 36416; 71045; 71275; 74174; 80048; 80053; 82553; 83036; 83605; 83880; 84443; 84484; 85025; 85379; 85610; 85730; 87040; 93005; 93306; 94640; 96374; 96375; J1200; J1815; J1940; J2920; J2930; J7620; J7626; Q9967; S0028; U0003; U0005

== ENCOUNTER 2022-03-30 00:28 | Inpatient (IN) | payer MEDICARE ==
[2022-03-30] MEDS ORDERED: Acetaminophen 325 MG TAB ONE (01:07)
[2022-03-30 01:57] LABS: Band 7 % (5-11); Hemoglobin 10.2 g/dL (12.0-16.0); Lymphocytes 8 % (21-51); MDiff Complete? YES; Mean Corpuscular HGB CONC 33.3 g/dL (32.0-36.0); Mean Corpuscular Hemoglobin 31.3 pg (27.0-31.0); Mean Platelet Volume 7.6 fL (7.4-10.4); Monocytes 13 % (0-10); Neutrophil 72 % (42-75); Platelet Count 263 thou/uL (130-400); RBC Distribution Width 11.9 % (11.5-14.5); Red Blood Cell (RBC) Count 3.25 mill/uL (4.20-5.40); White Blood Cell (WBC) Count 12.4 thou/uL (4.8-10.8)
[2022-03-30 02:00] LABS: Chloride 97 mmol/L (98-107); Potassium 4.4 mmol/L (3.5-5.1); Sodium 129 mmol/L (136-145)
[2022-03-30 02:02] LABS: Albumin 3.2 g/dL (3.4-4.8)
[2022-03-30 02:04] LABS: Calcium 7.7 mg/dL (7.8-10.44)
[2022-03-30 02:05] LABS: Globulin 2.9 g/dL (2.4-3.5); Glucose 138 mg/dL (83-110); Protein, Total 6.1 g/dL (5.8-8.1)
[2022-03-30 02:06] LABS: Carbon Dioxide 23 mmol/L (23-31)
[2022-03-30 02:07] LABS: Bilirubin, Total 0.5 mg/dL (0.2-1.2)
[2022-03-30 02:08] LABS: Alkaline Phosphatase 43 U/L (40-110); Calc. Creatinine Clearance 0 mL/min (70-130)
[2022-03-30 02:09] LABS: BUN (Urea Nitrogen) 28 mg/dL (9.8-20.1)
[2022-03-30 02:10] LABS: AST (SGOT) 7 U/L (5-34)
[2022-03-30 02:11] LABS: ALT (SGPT) 9 U/L (8-55)
[2022-03-30 02:14] LABS: Anion Gap 13 mmol/L (10-20)
[2022-03-30] MEDS ORDERED: methylPREDNISolone Sod Succ/PF 125 MG/2 ML VIAL ONE (02:14)
[2022-03-30] MEDS ORDERED: Famotidine/PF 20 mg/2ml Vial ONE (02:14)
[2022-03-30] MEDS ORDERED: diphenhydrAMINE 50 MG/ML VIAL ONE (02:14)
[2022-03-30 04:44] LABS: Bacteria/HPF None Seen HPF (None Seen); Bilirubin Negative (Negative); Blood, Urine 1+ (Negative); Clarity Clear (Clear); Glucose, Urine (Dipstick) Normal (Negative); Ketone, Urine Negative (Negative); Leukocyte Negative Leu/uL (Negative); Nitrite Negative (Negative); Protein, Urine (Dipstick) Negative (Neg-Trace); RBC/HPF 0-3 HPF (0-3); Specific Gravity, Urine 1.019 (1.002-1.036); Squamous Epithelial None Seen HPF (0-3); Urobilinogen Normal mg/dL (Less than 2); WBC/HPF 0-3 HPF (0-3)
[2022-03-30] MEDS ORDERED: Vancomycin 1 GM/200 ML BAG ONE (05:40)
[2022-03-30] MEDS ORDERED: Cefepime 2 GM VIAL ONE (05:40)
[2022-03-30 06:17] LABS: INR-International Normal Ratio 2.3; Prothrombin Time 26.1 sec (12.0-14.7)
[2022-03-30 06:18] LABS: PTT 61.6 sec (22.9-36.1)
[2022-03-30] MEDS ORDERED: Furosemide 40 MG/4 ML VIAL ONE (07:36)
[2022-03-30] MEDS ORDERED: Iopamidol-370 76% 500 ML 1 ML ONE (08:20)
[2022-03-30 08:21] LABS: Troponin I 0.013 ng/mL (< 0.028)
[2022-03-30] MEDS: cloNIDine 0.1 MG TAB PO SCH ×2 (09:00→23:03)
[2022-03-30] MEDS: Calcium Carbonate 500 MG ChewTAB PO SCH ×3 (09:18→20:49)
[2022-03-30] MEDS ORDERED: Meropenem 1 GM in Sodium Chloride 0.9% 100 ML IVPB SCH (10:00)
[2022-03-30 10:57] LABS: Troponin I 0.017 ng/mL (< 0.028)
[2022-03-30 12:21] VITALS: BMI 36.6
[2022-03-30] MEDS: Furosemide 40 MG/4 ML VIAL SLOW IVP SCH (14:03)
[2022-03-30] MEDS: Fluconazole 100 MG TAB PO SCH (14:10)
[2022-03-30] MEDS: Alogliptin 25 MG TAB PO SCH (14:10)
[2022-03-30] MEDS: Nystatin 500,000 UNITS/5 ML UDCUP SSW SCH ×3 (14:10→20:50)
[2022-03-30] MEDS: Lidocaine 5% Patch TD SCH (16:16)
[2022-03-30] MEDS: Warfarin Sodium 1 MG TAB PO SCH (16:22)
[2022-03-30] MEDS ORDERED: Albuterol Sulfate HFA (OR ONLY) INH SCH (18:30)
[2022-03-30] MEDS: Mometasone 200 MCG/Formoterol 5 MCG 120 PUFF INHALER INH SCH (18:50)
[2022-03-30] MEDS: Meropenem 500 MG in Sodium Chloride 0.9% 100 ML IVPB SCH (18:53)
[2022-03-30] MEDS: Albuterol 200 PUFF (6.7GM INHALER) INH SCH (20:19)
[2022-03-30] MEDS: Docusate 100 MG CAP PO SCH (20:49)
[2022-03-30] MEDS ORDERED: HumaLOG 300 UNITS/3 ML VIAL SC PRN (23:30)
[2022-03-31] MEDS: Transdermal Patch Removal TOP SCH (04:39)
[2022-03-31 05:01] LABS: #Lymphocytes 0.6 thou/uL (1.20-3.40); #Monocytes 0.8 thou/uL (0.11-0.59); #Neutrophils 12.5 thou/uL (1.40-6.50); %Basophils 0.1 % (0.0-1.0); %Eosinophils 0.1 % (0.0-10.0); %Lymphocytes 4.5 % (21.0-51.0); %Monocytes 5.7 % (0.0-10.0); %Neutrophils 89.6 % (42.0-75.0); Hemoglobin 10.2 g/dL (12.0-16.0); Mean Corpuscular HGB CONC 32.9 g/dL (32.0-36.0); Mean Corpuscular Hemoglobin 31.8 pg (27.0-31.0); Mean Corpuscular Volume 96.7 fL (78.0-98.0); Mean Platelet Volume 8.7 fL (7.4-10.4); Platelet Count 256 thou/uL (130-400); RBC Distribution Width 11.5 % (11.5-14.5); Red Blood Cell (RBC) Count 3.21 mill/uL (4.20-5.40)
[2022-03-31 05:07] LABS: Hemoglobin A1c 5.9 % (4.0-6.0)
[2022-03-31 05:21] LABS: Anion Gap 13 mmol/L (10-20); BUN (Urea Nitrogen) 44 mg/dL (9.8-20.1); Calc. Creatinine Clearance 27 mL/min (70-130); Calcium 7.9 mg/dL (7.8-10.44); Carbon Dioxide 24 mmol/L (23-31); Chloride 94 mmol/L (98-107); Glucose 270 mg/dL (83-110); Potassium 4.1 mmol/L (3.5-5.1); Sodium 127 mmol/L (136-145)
[2022-03-31] MEDS: Albuterol 200 PUFF (6.7GM INHALER) INH SCH ×2 (06:35→20:58)
[2022-03-31] MEDS: Mometasone 200 MCG/Formoterol 5 MCG 120 PUFF INHALER INH SCH ×2 (06:35→20:58)
[2022-03-31] MEDS: Meropenem 500 MG in Sodium Chloride 0.9% 100 ML IVPB SCH ×2 (06:53→17:52)
[2022-03-31] MEDS: HumaLOG 300 UNITS/3 ML VIAL SC PRN ×3 (08:04→17:53)
[2022-03-31] MEDS: NIFEdipine XL 30 MG TAB PO SCH (10:31)
[2022-03-31] MEDS: cloNIDine 0.1 MG TAB PO SCH ×2 (10:31→20:16)
[2022-03-31] MEDS: Alogliptin 25 MG TAB PO SCH (10:31)
[2022-03-31] MEDS: Fluconazole 100 MG TAB PO SCH (10:32)
[2022-03-31] MEDS: Furosemide 40 MG/4 ML VIAL SLOW IVP SCH (10:32)
[2022-03-31] MEDS: Nystatin 500,000 UNITS/5 ML UDCUP SSW SCH ×4 (10:32→20:17)
[2022-03-31] MEDS: Docusate 100 MG CAP PO SCH ×2 (10:33→20:17)
[2022-03-31] MEDS: Calcium Carbonate 500 MG ChewTAB PO SCH ×3 (10:33→20:16)
[2022-03-31] MEDS: Fluticasone Propionate Nasal Spray 16 gm Bottle NASAL SCH (10:33)
[2022-03-31] MEDS: Lidocaine 5% Patch TD SCH (15:56)
[2022-03-31] MEDS: Warfarin Sodium 0.5 MG HALF.TAB PO SCH (17:52)
[2022-04-01] MEDS ORDERED: ALPRAZolam 0.5 MG TAB PO PRN (02:03)
[2022-04-01] MEDS: Benzonatate 100 MG CAP PO PRN ×2 (02:14→09:35)
[2022-04-01] MEDS ORDERED: ALPRAZolam 1 MG TAB PO SCH (02:15)
[2022-04-01 04:19] LABS: #Lymphocytes 0.9 thou/uL (1.20-3.40); #Monocytes 1.6 thou/uL (0.11-0.59); #Neutrophils 12.8 thou/uL (1.40-6.50); %Eosinophils 0.1 % (0.0-10.0); %Lymphocytes 5.8 % (21.0-51.0); %Monocytes 10.5 % (0.0-10.0); %Neutrophils 83.6 % (42.0-75.0); Hemoglobin 9.5 g/dL (12.0-16.0); Mean Corpuscular HGB CONC 33.4 g/dL (32.0-36.0); Mean Corpuscular Hemoglobin 32.1 pg (27.0-31.0); Mean Platelet Volume 8.3 fL (7.4-10.4); Platelet Count 286 thou/uL (130-400); RBC Distribution Width 11.7 % (11.5-14.5); Red Blood Cell (RBC) Count 2.97 mill/uL (4.20-5.40); White Blood Cell (WBC) Count 15.4 thou/uL (4.8-10.8)
[2022-04-01 04:38] LABS: Anion Gap 13 mmol/L (10-20); BUN (Urea Nitrogen) 48 mg/dL (9.8-20.1); Calc. Creatinine Clearance 35 mL/min (70-130); Calcium 7.8 mg/dL (7.8-10.44); Carbon Dioxide 25 mmol/L (23-31); Chloride 95 mmol/L (98-107); Glucose 220 mg/dL (83-110); Sodium 129 mmol/L (136-145)
[2022-04-01] MEDS: Transdermal Patch Removal TOP SCH (05:00)
[2022-04-01] MEDS: Meropenem 500 MG in Sodium Chloride 0.9% 100 ML IVPB SCH (06:12)
[2022-04-01] MEDS: Albuterol 200 PUFF (6.7GM INHALER) INH SCH ×2 (07:17→18:17)
[2022-04-01] MEDS: Mometasone 200 MCG/Formoterol 5 MCG 120 PUFF INHALER INH SCH ×2 (07:19→20:53)
[2022-04-01] MEDS: HumaLOG 300 UNITS/3 ML VIAL SC PRN (07:35)
[2022-04-01] MEDS: Nystatin 500,000 UNITS/5 ML UDCUP SSW SCH ×4 (09:30→21:15)
[2022-04-01] MEDS: NIFEdipine XL 30 MG TAB PO SCH (09:30)
[2022-04-01] MEDS: Calcium Carbonate 500 MG ChewTAB PO SCH ×3 (09:30→21:03)
[2022-04-01] MEDS: Fluconazole 100 MG TAB PO SCH (09:31)
[2022-04-01] MEDS: Fluticasone Propionate Nasal Spray 16 gm Bottle NASAL SCH (09:32)
[2022-04-01] MEDS: Docusate 100 MG CAP PO SCH ×2 (09:32→21:05)
[2022-04-01] MEDS: cloNIDine 0.1 MG TAB PO SCH ×2 (09:33→21:04)
[2022-04-01] MEDS ORDERED: Furosemide 40 MG/4 ML VIAL SLOW IVP SCH (10:45)
[2022-04-01] MEDS: Alogliptin 25 MG TAB PO SCH (11:22)
[2022-04-01] MEDS: Lidocaine 5% Patch TD SCH (14:24)
[2022-04-01] MEDS: Warfarin Sodium 0.5 MG HALF.TAB PO SCH (16:57)
[2022-04-01] MEDS: guaiFENesin ER 600 MG TAB PO SCH (21:03)
[2022-04-01] MEDS: Insulin Glargine 30 UNITS/0.3 ML VIAL SC SCH (21:05)
[2022-04-02] MEDS: Transdermal Patch Removal TOP SCH (04:48)
[2022-04-02 04:51] LABS: Anion Gap 14 mmol/L (10-20); BUN (Urea Nitrogen) 40 mg/dL (9.8-20.1); Calc. Creatinine Clearance 39 mL/min (70-130); Carbon Dioxide 26 mmol/L (23-31); Chloride 98 mmol/L (98-107); Glucose 123 mg/dL (83-110); Potassium 4.2 mmol/L (3.5-5.1); Sodium 134 mmol/L (136-145)
[2022-04-02 05:05] LABS: Band 5 % (5-11); Hemoglobin 10.5 g/dL (12.0-16.0); Lymphocytes 11 % (21-51); MDiff Complete? YES; Mean Corpuscular Hemoglobin 32.9 pg (27.0-31.0); Mean Corpuscular Volume 96.8 fL (78.0-98.0); Mean Platelet Volume 8.1 fL (7.4-10.4); Monocytes 12 % (0-10); Neutrophil 72 % (42-75); Platelet Count 314 thou/uL (130-400); RBC Distribution Width 11.8 % (11.5-14.5)
[2022-04-02] MEDS: Mometasone 200 MCG/Formoterol 5 MCG 120 PUFF INHALER INH SCH ×2 (06:57→18:47)
[2022-04-02] MEDS: Albuterol 200 PUFF (6.7GM INHALER) INH SCH ×2 (06:57→18:52)
[2022-04-02] MEDS ORDERED: ALPRAZolam 0.25 MG TAB PO PRN (08:01)
[2022-04-02] MEDS: Calcium Carbonate 500 MG ChewTAB PO SCH ×2 (09:16→20:55)
[2022-04-02] MEDS: cloNIDine 0.1 MG TAB PO SCH ×2 (09:16→20:55)
[2022-04-02] MEDS: Glimepiride 2 MG TAB PO SCH (09:16)
[2022-04-02] MEDS: Docusate 100 MG CAP PO SCH ×2 (09:17→20:56)
[2022-04-02] MEDS: Fluticasone Propionate Nasal Spray 16 gm Bottle NASAL SCH (09:17)
[2022-04-02] MEDS: Fluconazole 100 MG TAB PO SCH (09:17)
[2022-04-02] MEDS: Furosemide 40 MG/4 ML VIAL SLOW IVP SCH (09:18)
[2022-04-02] MEDS: Insulin Glargine 30 UNITS/0.3 ML VIAL SC SCH ×2 (09:19→20:55)
[2022-04-02] MEDS: NIFEdipine XL 30 MG TAB PO SCH (09:19)
[2022-04-02] MEDS: Nystatin 500,000 UNITS/5 ML UDCUP SSW SCH ×4 (09:19→21:53)
[2022-04-02] MEDS: guaiFENesin ER 600 MG TAB PO SCH ×2 (09:19→20:55)
[2022-04-02 09:35] LABS: Anion Gap 13 mmol/L (10-20); BUN (Urea Nitrogen) 34 mg/dL (9.8-20.1); Calc. Creatinine Clearance 43 mL/min (70-130); Carbon Dioxide 24 mmol/L (23-31); Chloride 99 mmol/L (98-107); Glucose 158 mg/dL (83-110); Potassium 4.2 mmol/L (3.5-5.1); Sodium 132 mmol/L (136-145)
[2022-04-02 11:10] LABS: Band 1 % (5-11); Hemoglobin 10.9 g/dL (12.0-16.0); Lymphocytes 15 % (21-51); MDiff Complete? YES; Mean Corpuscular Volume 96.9 fL (78.0-98.0); Mean Platelet Volume 8.4 fL (7.4-10.4); Monocytes 17 % (0-10); Neutrophil 67 % (42-75); Platelet Count 391 thou/uL (130-400); Platelet Morphology Comment Appears Adequate; Polychromasia SLIGHT = 2-3 cells (100X) (0-2/hpf); Red Blood Cell (RBC) Count 3.52 mill/uL (4.20-5.40); White Blood Cell (WBC) Count 10.4 thou/uL (4.8-10.8)
[2022-04-02] MEDS: SPIRIVA SCH ×4 (14:38→15:17)
[2022-04-02] MEDS: Benzonatate 100 MG CAP PO PRN (18:19)
[2022-04-02] MEDS: Lidocaine 5% Patch TD SCH (18:19)
[2022-04-02] MEDS: Warfarin Sodium 1 MG TAB PO SCH (18:20)
[2022-04-03 03:53] LABS: INR-International Normal Ratio 3.3; Prothrombin Time 34.6 sec (12.0-14.7)
[2022-04-03 04:03] LABS: Anion Gap 12 mmol/L (10-20); BUN (Urea Nitrogen) 28 mg/dL (9.8-20.1); Calc. Creatinine Clearance 52 mL/min (70-130); Calcium 7.8 mg/dL (7.8-10.44); Carbon Dioxide 27 mmol/L (23-31); Chloride 99 mmol/L (98-107); Glucose 85 mg/dL (83-110); Potassium 4.3 mmol/L (3.5-5.1); Sodium 134 mmol/L (136-145)
[2022-04-03] MEDS: Transdermal Patch Removal TOP SCH (05:13)
[2022-04-03 05:26] LABS: Band 4 % (5-11); Eosinophils 1 % (0-10); Hemoglobin 10.5 g/dL (12.0-16.0); Lymphocytes 22 % (21-51); MDiff Complete? YES; Mean Corpuscular Hemoglobin 31.6 pg (27.0-31.0); Mean Corpuscular Volume 95.7 fL (78.0-98.0); Mean Platelet Volume 7.7 fL (7.4-10.4); Monocytes 14 % (0-10); Neutrophil 59 % (42-75); Platelet Count 359 thou/uL (130-400); RBC Distribution Width 11.8 % (11.5-14.5); Red Blood Cell (RBC) Count 3.32 mill/uL (4.20-5.40); White Blood Cell (WBC) Count 9.6 thou/uL (4.8-10.8)
[2022-04-03] MEDS: Albuterol 200 PUFF (6.7GM INHALER) INH SCH ×2 (07:02→19:18)
[2022-04-03] MEDS: Mometasone 200 MCG/Formoterol 5 MCG 120 PUFF INHALER INH SCH ×3 (07:02→18:58)
[2022-04-03] MEDS: guaiFENesin ER 600 MG TAB PO SCH ×2 (08:39→20:45)
[2022-04-03] MEDS: Fluconazole 100 MG TAB PO SCH (08:39)
[2022-04-03] MEDS: Calcium Carbonate 500 MG ChewTAB PO SCH ×2 (08:39→20:45)
[2022-04-03] MEDS: NIFEdipine XL 30 MG TAB PO SCH (08:39)
[2022-04-03] MEDS: Glimepiride 2 MG TAB PO SCH (08:40)
[2022-04-03] MEDS: Furosemide 40 MG/4 ML VIAL SLOW IVP SCH (08:40)
[2022-04-03] MEDS: Nystatin 500,000 UNITS/5 ML UDCUP SSW SCH ×4 (08:40→21:43)
[2022-04-03] MEDS: Docusate 100 MG CAP PO SCH ×2 (08:40→20:45)
[2022-04-03] MEDS: cloNIDine 0.1 MG TAB PO SCH (08:40)
[2022-04-03] MEDS: Fluticasone Propionate Nasal Spray 16 gm Bottle NASAL SCH (08:40)
[2022-04-03] MEDS: Insulin Glargine 30 UNITS/0.3 ML VIAL SC SCH (08:41)
[2022-04-03] MEDS: cloNIDine 0.2 MG TAB PO SCH ×3 (08:58→20:45)
[2022-04-03] MEDS ORDERED: Insulin Glargine 30 UNITS/0.3 ML VIAL SC SCH (09:00)
[2022-04-03] MEDS: Lidocaine 5% Patch TD SCH (15:38)
[2022-04-03] MEDS: Acetaminophen 325 MG TAB PO PRN (21:45)
[2022-04-04 04:44] LABS: Anion Gap 13 mmol/L (10-20); BUN (Urea Nitrogen) 23 mg/dL (9.8-20.1); Calc. Creatinine Clearance 46 mL/min (70-130); Calcium 7.6 mg/dL (7.8-10.44); Carbon Dioxide 26 mmol/L (23-31); Chloride 100 mmol/L (98-107); Potassium 4.7 mmol/L (3.5-5.1); Sodium 134 mmol/L (136-145)
[2022-04-04 05:00] LABS: Eosinophils 1 % (0-10); Hemoglobin 10.2 g/dL (12.0-16.0); Lymphocytes 20 % (21-51); MDiff Complete? YES; Mean Corpuscular Hemoglobin 31.3 pg (27.0-31.0); Mean Platelet Volume 7.8 fL (7.4-10.4); Monocytes 11 % (0-10); Neutrophil 68 % (42-75); Platelet Count 303 thou/uL (130-400); RBC Distribution Width 11.9 % (11.5-14.5); Red Blood Cell (RBC) Count 3.26 mill/uL (4.20-5.40); White Blood Cell (WBC) Count 9.2 thou/uL (4.8-10.8)
[2022-04-04 05:15] LABS: Glucose 57 mg/dL (83-110)
[2022-04-04] MEDS: Transdermal Patch Removal TOP SCH (06:09)
[2022-04-04] MEDS: Mometasone 200 MCG/Formoterol 5 MCG 120 PUFF INHALER INH SCH ×2 (07:05→18:53)
[2022-04-04] MEDS: Albuterol 200 PUFF (6.7GM INHALER) INH SCH (07:15)
[2022-04-04] MEDS ORDERED: Furosemide 40 MG/4 ML VIAL SLOW IVP SCH (08:15)
[2022-04-04] MEDS: Nystatin 500,000 UNITS/5 ML UDCUP SSW SCH ×4 (08:58→20:58)
[2022-04-04] MEDS: Fluconazole 100 MG TAB PO SCH (08:58)
[2022-04-04] MEDS: guaiFENesin ER 600 MG TAB PO SCH ×2 (08:58→20:58)
[2022-04-04] MEDS: NIFEdipine XL 30 MG TAB PO SCH (08:58)
[2022-04-04] MEDS: Calcium Carbonate 500 MG ChewTAB PO SCH ×2 (08:58→20:58)
[2022-04-04] MEDS: Fluticasone Propionate Nasal Spray 16 gm Bottle NASAL SCH (08:59)
[2022-04-04] MEDS: Glimepiride 2 MG TAB PO SCH (08:59)
[2022-04-04] MEDS: cloNIDine 0.2 MG TAB PO SCH ×3 (08:59→20:59)
[2022-04-04] MEDS: Docusate 100 MG CAP PO SCH ×2 (08:59→21:18)
[2022-04-04] MEDS ORDERED: Furosemide 20 MG/2 ML VIAL SLOW IVP SCH (09:00)
[2022-04-04 09:16] LABS: Anion Gap 12 mmol/L (10-20); BUN (Urea Nitrogen) 22 mg/dL (9.8-20.1); Calc. Creatinine Clearance 50 mL/min (70-130); Calcium 7.7 mg/dL (7.8-10.44); Carbon Dioxide 26 mmol/L (23-31); Chloride 98 mmol/L (98-107); Glucose 116 mg/dL (83-110); Potassium 4.2 mmol/L (3.5-5.1); Sodium 132 mmol/L (136-145)
[2022-04-04] MEDS: Lidocaine 5% Patch TD SCH (16:04)
[2022-04-04] MEDS: Acetaminophen 325 MG TAB PO PRN (16:17)
[2022-04-04] MEDS ORDERED: Warfarin Sodium 0.5 MG HALF.TAB PO SCH (17:00)
[2022-04-05 04:30] LABS: #Eosinphils 0.2 thou/uL (0.0-0.7); #Lymphocytes 1.4 thou/uL (1.20-3.40); #Monocytes 1.2 thou/uL (0.11-0.59); #Neutrophils 6.2 thou/uL (1.40-6.50); %Basophils 0.4 % (0.0-1.0); %Lymphocytes 15.2 % (21.0-51.0); %Monocytes 13.5 % (0.0-10.0); %Neutrophils 68.9 % (42.0-75.0); Hemoglobin 9.9 g/dL (12.0-16.0); Mean Corpuscular HGB CONC 33.2 g/dL (32.0-36.0); Mean Corpuscular Hemoglobin 31.8 pg (27.0-31.0); Mean Corpuscular Volume 95.9 fL (78.0-98.0); Mean Platelet Volume 7.2 fL (7.4-10.4); Platelet Count 359 thou/uL (130-400); RBC Distribution Width 11.8 % (11.5-14.5); Red Blood Cell (RBC) Count 3.09 mill/uL (4.20-5.40)
[2022-04-05 04:50] LABS: Prothrombin Time 31.8 sec (12.0-14.7)
[2022-04-05] MEDS: Transdermal Patch Removal TOP SCH (05:09)
[2022-04-05] MEDS: Mometasone 200 MCG/Formoterol 5 MCG 120 PUFF INHALER INH SCH (07:21)
[2022-04-05] MEDS ORDERED: Furosemide 40 MG TAB PO SCH (07:30)
[2022-04-05 08:09] VITALS: BP 136/66; TEMP 97.9
[2022-04-05] MEDS: Glimepiride 2 MG TAB PO SCH (08:58)
[2022-04-05] MEDS: Calcium Carbonate 500 MG ChewTAB PO SCH (08:58)
[2022-04-05] MEDS: Nystatin 500,000 UNITS/5 ML UDCUP SSW SCH (08:58)
[2022-04-05] MEDS: Fluticasone Propionate Nasal Spray 16 gm Bottle NASAL SCH (08:59)
[2022-04-05] MEDS: Docusate 100 MG CAP PO SCH (08:59)
[2022-04-05] MEDS: Fluconazole 100 MG TAB PO SCH (08:59)
[2022-04-05] MEDS: guaiFENesin ER 600 MG TAB PO SCH (08:59)
[2022-04-05] MEDS: cloNIDine 0.2 MG TAB PO SCH (08:59)
[2022-04-05] MEDS: NIFEdipine XL 30 MG TAB PO SCH (08:59)
== END 2022-04-05 11:49 | disposition home or self-care (01) | DRG 193 ==
LOC: ERS 00:28 → ERHOLD 07:29 → 2NO 14:59
PROVIDERS: ADMIT Specialist; ATTEND Specialist
DX: J18.9 Pneumonia, unspecified organism (principal); I50.43 Acute on chronic combined systolic (congestive) and diastolic (congestive) heart failure; I13.0 Hypertensive heart and chronic kidney disease with heart failure and stage 1 through stage 4 chronic kidney disease, or unspecified chronic kidney disease; N17.9 Acute kidney failure, unspecified; J44.0 Chronic obstructive pulmonary disease with (acute) lower respiratory infection; Z68.41 Body mass index [BMI] 40.0-44.9, adult; E11.22 Type 2 diabetes mellitus with diabetic chronic kidney disease; I48.0 Paroxysmal atrial fibrillation; M10.9 Gout, unspecified; I25.10 Atherosclerotic heart disease of native coronary artery without angina pectoris; R53.81 Other malaise; E66.9 Obesity, unspecified; N18.2 Chronic kidney disease, stage 2 (mild); R91.1 Solitary pulmonary nodule; D72.829 Elevated white blood cell count, unspecified; D63.1 Anemia in chronic kidney disease; Z20.822 Contact with and (suspected) exposure to COVID-19; Z98.49 Cataract extraction status, unspecified eye; Z90.710 Acquired absence of both cervix and uterus; Z98.890 Other specified postprocedural states; Z88.8 Allergy status to other drugs, medicaments and biological substances; Z87.11 Personal history of peptic ulcer disease; Z91.041 Radiographic dye allergy status; Z88.0 Allergy status to penicillin; Z91.013 Allergy to seafood; Z91.09 Other allergy status, other than to drugs and biological substances
CPT/HCPCS: 36415; 36416; 71045; 71046; 71250; 71275; 74174; 80048; 80053; 81003; 81015; 83036; 83880; 84443; 84484; 85025; 85379; 85610; 85730; 87040; 93005; 93306; 94640; 94760; 96365; 96375; J0692; J1200; J1815; J1940; J1956; J2185; J2930; J3370; J3490; J7620; Q9967; S0028; U0003; U0005

== ENCOUNTER 2022-04-07 01:33 | Inpatient (IN) | payer MEDICARE ==
[2022-04-07] MEDS ORDERED: Ondansetron PF 4 MG/2 ML Vial ONE (01:56)
[2022-04-07 02:02] LABS: #Basophils 0.1 thou/uL (0.0-0.2); #Eosinphils 0.1 thou/uL (0.0-0.7); #Lymphocytes 0.9 thou/uL (1.20-3.40); #Neutrophils 13.2 thou/uL (1.40-6.50); %Basophils 0.7 % (0.0-1.0); %Eosinophils 0.6 % (0.0-10.0); %Lymphocytes 5.3 % (21.0-51.0); %Neutrophils 81.4 % (42.0-75.0); Mean Corpuscular HGB CONC 33.6 g/dL (32.0-36.0); Mean Corpuscular Volume 95.3 fL (78.0-98.0); Mean Platelet Volume 7.7 fL (7.4-10.4); Platelet Count 428 thou/uL (130-400); RBC Distribution Width 11.8 % (11.5-14.5); Red Blood Cell (RBC) Count 3.76 mill/uL (4.20-5.40); White Blood Cell (WBC) Count 16.3 thou/uL (4.8-10.8)
[2022-04-07 02:22] LABS: ALT (SGPT) 17 U/L (8-55); AST (SGOT) 20 U/L (5-34); Albumin 3.3 g/dL (3.4-4.8); Alkaline Phosphatase 51 U/L (40-110); Anion Gap 17 mmol/L (10-20); BUN (Urea Nitrogen) 24 mg/dL (9.8-20.1); Bilirubin, Total 0.4 mg/dL (0.2-1.2); Calc. Creatinine Clearance 0 mL/min (70-130); Calcium 9.1 mg/dL (7.8-10.44); Carbon Dioxide 23 mmol/L (23-31); Chloride 94 mmol/L (98-107); Glucose 165 mg/dL (83-110); Lipase 17 U/L (8-78); Potassium 4.6 mmol/L (3.5-5.1); Protein, Total 7.3 g/dL (5.8-8.1); Sodium 129 mmol/L (136-145)
[2022-04-07 03:49] LABS: Bilirubin Negative (Negative); Blood, Urine Negative (Negative); Clarity Clear (Clear); Glucose, Urine (Dipstick) Normal (Negative); Ketone, Urine Negative (Negative); Leukocyte Negative Leu/uL (Negative); Nitrite Negative (Negative); Protein, Urine (Dipstick) Negative (Neg-Trace); Specific Gravity, Urine 1.015 (1.002-1.036); Urobilinogen Normal mg/dL (Less than 2); pH, Urine 5.5 (5.0-9.0)
[2022-04-07] MEDS ORDERED: Ondansetron PF 4 MG/2 ML Vial IVP PRN (06:00)
[2022-04-07] MEDS ORDERED: Ondansetron ODT 4 MG TAB SL PRN (06:00)
[2022-04-07] MEDS ORDERED: Sodium Chloride 0.9% 1,000 ML IV SCH (06:00)
[2022-04-07] MEDS: cefTRIAXone\\ROCEPHIN 1 GM in Sodium Chloride 0.9% 100 ML IVPB SCH (06:27)
[2022-04-07 06:55] VITALS: BMI 38.1
[2022-04-07] MEDS ORDERED: Senokot S 8.6-50 MG TAB PO PRN (07:32)
[2022-04-07] MEDS ORDERED: Dextrose 50% Abboject 50 ML SYRINGE SLOW IVP PRN (07:34)
[2022-04-07] MEDS ORDERED: Dextrose 5% in Water 1,000 ML IV PRN (07:34)
[2022-04-07] MEDS ORDERED: hydrALAZINE 20 MG/ML VIAL SLOW IVP PRN (07:36)
[2022-04-07 08:35] LABS: #Basophils 0.2 thou/uL (0.0-0.2); #Eosinphils 0.1 thou/uL (0.0-0.7); #Lymphocytes 0.9 thou/uL (1.20-3.40); #Monocytes 1.2 thou/uL (0.11-0.59); #Neutrophils 9.1 thou/uL (1.40-6.50); %Basophils 1.3 % (0.0-1.0); %Eosinophils 0.4 % (0.0-10.0); %Lymphocytes 8.1 % (21.0-51.0); %Monocytes 10.5 % (0.0-10.0); %Neutrophils 79.6 % (42.0-75.0); Hemoglobin 10.8 g/dL (12.0-16.0); Mean Corpuscular HGB CONC 32.2 g/dL (32.0-36.0); Mean Corpuscular Hemoglobin 30.7 pg (27.0-31.0); Mean Corpuscular Volume 95.5 fL (78.0-98.0); Mean Platelet Volume 7.1 fL (7.4-10.4); Platelet Count 367 thou/uL (130-400); RBC Distribution Width 11.9 % (11.5-14.5); Red Blood Cell (RBC) Count 3.52 mill/uL (4.20-5.40); White Blood Cell (WBC) Count 11.4 thou/uL (4.8-10.8)
[2022-04-07 08:54] LABS: Anion Gap 15 mmol/L (10-20); BUN (Urea Nitrogen) 23 mg/dL (9.8-20.1); Calc. Creatinine Clearance 38 mL/min (70-130); Calcium 8.2 mg/dL (7.8-10.44); Carbon Dioxide 24 mmol/L (23-31); Chloride 97 mmol/L (98-107); Glucose 125 mg/dL (83-110); Potassium 4.6 mmol/L (3.5-5.1); Sodium 131 mmol/L (136-145)
[2022-04-07 08:59] LABS: INR-International Normal Ratio 2.5; Prothrombin Time 27.6 sec (12.0-14.7)
[2022-04-07 09:00] LABS: PTT 78.2 sec (22.9-36.1)
[2022-04-07] MEDS: metroNIDAZOLE 500 MG in Premix Bag 1 BAG IVPB SCH ×2 (09:17→21:16)
[2022-04-07] MEDS: Pantoprazole 40 MG VIAL IVP SCH (09:24)
[2022-04-07] MEDS: Furosemide 40 MG/4 ML VIAL SLOW IVP SCH (09:26)
[2022-04-07] MEDS ORDERED: Albuterol 200 PUFF (6.7GM INHALER) INH PRN ×2 (10:10→10:39)
[2022-04-08] MEDS: cefTRIAXone\\ROCEPHIN 1 GM in Sodium Chloride 0.9% 100 ML IVPB SCH (05:39)
[2022-04-08 07:08] LABS: INR-International Normal Ratio 2.2; Prothrombin Time 25.1 sec (12.0-14.7)
[2022-04-08 07:18] LABS: ALT (SGPT) 14 U/L (8-55); AST (SGOT) 14 U/L (5-34); Albumin 3.1 g/dL (3.4-4.8); Alkaline Phosphatase 45 U/L (40-110); Anion Gap 16 mmol/L (10-20); BUN (Urea Nitrogen) 19 mg/dL (9.8-20.1); Bilirubin, Total 0.3 mg/dL (0.2-1.2); Calc. Creatinine Clearance 47 mL/min (70-130); Calcium 8.1 mg/dL (7.8-10.44); Carbon Dioxide 23 mmol/L (23-31); Chloride 100 mmol/L (98-107); Globulin 3.6 g/dL (2.4-3.5); Glucose 83 mg/dL (83-110); Potassium 4.2 mmol/L (3.5-5.1); Protein, Total 6.7 g/dL (5.8-8.1); Sodium 135 mmol/L (136-145)
[2022-04-08 07:30] LABS: Hemoglobin 10.9 g/dL (12.0-16.0); Mean Corpuscular HGB CONC 32.6 g/dL (32.0-36.0); Mean Corpuscular Hemoglobin 31.3 pg (27.0-31.0); Mean Corpuscular Volume 96.1 fL (78.0-98.0); Mean Platelet Volume 7.5 fL (7.4-10.4); Platelet Count 344 thou/uL (130-400); RBC Distribution Width 11.9 % (11.5-14.5); Red Blood Cell (RBC) Count 3.47 mill/uL (4.20-5.40)
[2022-04-08 07:32] LABS: PTT 76.4 sec (22.9-36.1)
[2022-04-08 07:34] LABS: Band 6 % (5-11); Lymphocytes 10 % (21-51); MDiff Complete? YES; Monocytes 15 % (0-10); Neutrophil 65 % (42-75); Platelet Morphology Comment Appears Adequate; RBC Morphology Normal; Reactive Lymphocytes 4 % (0-10)
[2022-04-08] MEDS: metroNIDAZOLE 500 MG in Premix Bag 1 BAG IVPB SCH ×2 (08:44→20:25)
[2022-04-08] MEDS: Furosemide 40 MG/4 ML VIAL SLOW IVP SCH (08:46)
[2022-04-08] MEDS: Pantoprazole 40 MG VIAL IVP SCH (08:49)
[2022-04-08] MEDS: HumaLOG 300 UNITS/3 ML VIAL SC PRN (18:37)
[2022-04-08] MEDS: Mometasone 200 MCG/Formoterol 5 MCG 120 PUFF INHALER INH SCH (18:56)
[2022-04-09] MEDS: cefTRIAXone\\ROCEPHIN 1 GM in Sodium Chloride 0.9% 100 ML IVPB SCH (05:38)
[2022-04-09 05:51] LABS: INR-International Normal Ratio 2.1; Prothrombin Time 23.8 sec (12.0-14.7)
[2022-04-09 05:52] LABS: PTT 65.8 sec (22.9-36.1)
[2022-04-09] MEDS ORDERED: Metoprolol Tartrate 50 MG TAB PER TUBE SCH (06:00)
[2022-04-09] MEDS: Mometasone 200 MCG/Formoterol 5 MCG 120 PUFF INHALER INH SCH ×2 (06:28→18:45)
[2022-04-09 07:37] LABS: Anion Gap 16 mmol/L (10-20); BUN (Urea Nitrogen) 15 mg/dL (9.8-20.1); Calc. Creatinine Clearance 50 mL/min (70-130); Calcium 8.2 mg/dL (7.8-10.44); Carbon Dioxide 24 mmol/L (23-31); Chloride 102 mmol/L (98-107); Glucose 94 mg/dL (83-110); Potassium 3.9 mmol/L (3.5-5.1); Sodium 138 mmol/L (136-145)
[2022-04-09 07:59] LABS: Hemoglobin 10.9 g/dL (12.0-16.0); Mean Corpuscular HGB CONC 32.1 g/dL (32.0-36.0); Mean Corpuscular Hemoglobin 30.7 pg (27.0-31.0); Mean Corpuscular Volume 95.7 fL (78.0-98.0); Mean Platelet Volume 7.2 fL (7.4-10.4); Platelet Count 347 thou/uL (130-400); RBC Distribution Width 11.9 % (11.5-14.5); Red Blood Cell (RBC) Count 3.56 mill/uL (4.20-5.40); White Blood Cell (WBC) Count 8.2 thou/uL (4.8-10.8)
[2022-04-09 08:40] LABS: Band 2 % (5-11); Eosinophils 3 % (0-10); Lymphocytes 10 % (21-51); MDiff Complete? YES; Monocytes 12 % (0-10); Neutrophil 73 % (42-75); Platelet Morphology Comment Appears Adequate; RBC Morphology Normal
[2022-04-09] MEDS: metroNIDAZOLE 500 MG in Premix Bag 1 BAG IVPB SCH ×2 (09:30→20:13)
[2022-04-09] MEDS: Polyethylene Glycol 3350 17 GM Packet PO SCH (09:31)
[2022-04-09] MEDS: Pantoprazole 40 MG VIAL IVP SCH (09:31)
[2022-04-09] MEDS: Enoxaparin Sodium 40 MG/0.4 ML SYRINGE SC SCH (09:31)
[2022-04-09] MEDS: Furosemide 40 MG/4 ML VIAL SLOW IVP SCH (09:31)
[2022-04-09] MEDS: Metoprolol Tartrate 50 MG TAB PER TUBE SCH (20:13)
[2022-04-09] MEDS: predniSONE 50 MG TAB PO SCH (20:13)
[2022-04-10] MEDS: predniSONE 50 MG TAB PO SCH ×2 (01:47→08:22)
[2022-04-10] MEDS: cefTRIAXone\\ROCEPHIN 1 GM in Sodium Chloride 0.9% 100 ML IVPB SCH (05:04)
[2022-04-10 05:51] LABS: #Lymphocytes 0.5 thou/uL (1.20-3.40); #Monocytes 0.1 thou/uL (0.11-0.59); %Basophils 0.4 % (0.0-1.0); %Eosinophils 0.2 % (0.0-10.0); %Monocytes 1.1 % (0.0-10.0); %Neutrophils 90.3 % (42.0-75.0); Mean Corpuscular HGB CONC 32.2 g/dL (32.0-36.0); Mean Corpuscular Hemoglobin 30.6 pg (27.0-31.0); Mean Corpuscular Volume 94.9 fL (78.0-98.0); Mean Platelet Volume 7.3 fL (7.4-10.4); Platelet Count 319 thou/uL (130-400); Red Blood Cell (RBC) Count 3.92 mill/uL (4.20-5.40); White Blood Cell (WBC) Count 6.6 thou/uL (4.8-10.8)
[2022-04-10 06:02] LABS: PTT 59.3 sec (22.9-36.1); Prothrombin Time 22.8 sec (12.0-14.7)
[2022-04-10 06:29] LABS: Anion Gap 16 mmol/L (10-20); BUN (Urea Nitrogen) 11 mg/dL (9.8-20.1); Calc. Creatinine Clearance 51 mL/min (70-130); Calcium 8.3 mg/dL (7.8-10.44); Carbon Dioxide 23 mmol/L (23-31); Chloride 100 mmol/L (98-107); Glucose 206 mg/dL (83-110); Potassium 4.1 mmol/L (3.5-5.1); Sodium 135 mmol/L (136-145)
[2022-04-10] MEDS: Mometasone 200 MCG/Formoterol 5 MCG 120 PUFF INHALER INH SCH ×2 (07:08→19:12)
[2022-04-10] MEDS ORDERED: diphenhydrAMINE 50 MG CAP PO SCH (08:00)
[2022-04-10] MEDS: Enoxaparin Sodium 40 MG/0.4 ML SYRINGE SC SCH (08:21)
[2022-04-10] MEDS: Metoprolol Tartrate 50 MG TAB PER TUBE SCH ×2 (08:22→20:21)
[2022-04-10] MEDS: Furosemide 40 MG/4 ML VIAL SLOW IVP SCH (08:22)
[2022-04-10] MEDS: Pantoprazole 40 MG VIAL IVP SCH (08:22)
[2022-04-10] MEDS: Polyethylene Glycol 3350 17 GM Packet PO SCH (08:23)
[2022-04-10] MEDS ORDERED: Iopamidol 370 76% 100 ML VIAL ONE (09:01)
[2022-04-10] MEDS: metroNIDAZOLE 500 MG in Premix Bag 1 BAG IVPB SCH (10:30)
[2022-04-10] MEDS: HumaLOG 300 UNITS/3 ML VIAL SC PRN ×3 (11:54→21:41)
[2022-04-10] MEDS: metroNIDAZOLE 500 MG TAB PO SCH (20:21)
[2022-04-11] MEDS ORDERED: Melatonin 3 MG TAB PO PRN ×2 (04:08→08:00)
[2022-04-11] MEDS: cefTRIAXone\\ROCEPHIN 1 GM in Sodium Chloride 0.9% 100 ML IVPB SCH (05:36)
[2022-04-11] MEDS: Mometasone 200 MCG/Formoterol 5 MCG 120 PUFF INHALER INH SCH ×2 (06:45→18:37)
[2022-04-11] MEDS: metroNIDAZOLE 500 MG TAB PO SCH ×2 (10:50→20:03)
[2022-04-11] MEDS: Enoxaparin Sodium 40 MG/0.4 ML SYRINGE SC SCH ×2 (10:51→13:57)
[2022-04-11] MEDS: Metoprolol Tartrate 50 MG TAB PER TUBE SCH ×2 (10:51→20:03)
[2022-04-11] MEDS: Furosemide 40 MG/4 ML VIAL SLOW IVP SCH (10:51)
[2022-04-11] MEDS: Sodium Chloride 0.45% 1,000 ML IV SCH ×2 (10:51→18:12)
[2022-04-11] MEDS: Polyethylene Glycol 3350 17 GM Packet PO SCH (11:13)
[2022-04-11] MEDS ORDERED: Ondansetron PF 4 MG/2 ML Vial IVP PRN (14:44)
[2022-04-11] MEDS ORDERED: Ondansetron PF 4 MG/2 ML Vial IVP SCH (14:45)
[2022-04-12] MEDS: Sodium Chloride 0.45% 1,000 ML IV SCH ×2 (02:00→09:30)
[2022-04-12] MEDS: cefTRIAXone\\ROCEPHIN 1 GM in Sodium Chloride 0.9% 100 ML IVPB SCH (05:24)
[2022-04-12 05:54] LABS: INR-International Normal Ratio 1.9; Prothrombin Time 22.3 sec (12.0-14.7)
[2022-04-12 05:55] LABS: PTT 37.1 sec (22.9-36.1)
[2022-04-12] MEDS: Mometasone 200 MCG/Formoterol 5 MCG 120 PUFF INHALER INH SCH (06:05)
[2022-04-12 06:07] LABS: ALT (SGPT) 23 U/L (8-55); AST (SGOT) 31 U/L (5-34); Alkaline Phosphatase 40 U/L (40-110); Anion Gap 13 mmol/L (10-20); BUN (Urea Nitrogen) 14 mg/dL (9.8-20.1); Bilirubin, Total 0.4 mg/dL (0.2-1.2); Calc. Creatinine Clearance 48 mL/min (70-130); Calcium 7.5 mg/dL (7.8-10.44); Carbon Dioxide 26 mmol/L (23-31); Chloride 104 mmol/L (98-107); Globulin 3.3 g/dL (2.4-3.5); Glucose 95 mg/dL (83-110); Potassium 3.4 mmol/L (3.5-5.1); Protein, Total 6.3 g/dL (5.8-8.1); Sodium 140 mmol/L (136-145)
[2022-04-12] MEDS: Polyethylene Glycol 3350 17 GM Packet PO SCH (09:31)
[2022-04-12] MEDS: Furosemide 40 MG/4 ML VIAL SLOW IVP SCH (09:32)
[2022-04-12] MEDS: Metoprolol Tartrate 50 MG TAB PER TUBE SCH (09:32)
[2022-04-12] MEDS ORDERED: Metoclopramide 10 MG/10 ML UDCUP PO SCH (11:30)
[2022-04-12 11:31] VITALS: BP 150/82; TEMP 98.4
== END 2022-04-12 16:15 | disposition home or self-care (01) | DRG 388 ==
LOC: ERS 01:33 → SURG A 04:17
PROVIDERS: ADMIT Specialist; ATTEND Family Medicine
PROC: 0D9670Z Drainage of Stomach with Drainage Device, Via Natural or Artificial Opening (ICD-10-PCS; principal; 2022-04-07)
DX: K56.609 Unspecified intestinal obstruction, unspecified as to partial versus complete obstruction (principal); J18.9 Pneumonia, unspecified organism; I13.0 Hypertensive heart and chronic kidney disease with heart failure and stage 1 through stage 4 chronic kidney disease, or unspecified chronic kidney disease; E87.1 Hypo-osmolality and hyponatremia; I50.32 Chronic diastolic (congestive) heart failure; Z20.822 Contact with and (suspected) exposure to COVID-19; J44.9 Chronic obstructive pulmonary disease, unspecified; E03.9 Hypothyroidism, unspecified; I48.91 Unspecified atrial fibrillation; E11.40 Type 2 diabetes mellitus with diabetic neuropathy, unspecified; M81.0 Age-related osteoporosis without current pathological fracture; E11.22 Type 2 diabetes mellitus with diabetic chronic kidney disease; E66.9 Obesity, unspecified; N18.32 Chronic kidney disease, stage 3b; I71.4 Abdominal aortic aneurysm, without rupture; Z88.0 Allergy status to penicillin; Z88.8 Allergy status to other drugs, medicaments and biological substances; Z91.041 Radiographic dye allergy status; Z79.899 Other long term (current) drug therapy; Z79.01 Long term (current) use of anticoagulants; Z79.51 Long term (current) use of inhaled steroids; Z90.89 Acquired absence of other organs; Z98.890 Other specified postprocedural states; Z68.38 Body mass index [BMI] 38.0-38.9, adult; Z98.49 Cataract extraction status, unspecified eye; Z90.710 Acquired absence of both cervix and uterus
CPT/HCPCS: 36415; 36416; 44500; 71045; 71260; 74176; 80048; 80053; 81003; 83615; 83690; 84443; 84484; 85025; 85610; 85730; 87086; 93005; 94640; 96374; 97139; C9113; J0696; J1642; J1650; J1815; J1940; J2405; J3490; J7050; J7512; J7620; Q9967; U0003; U0005

== ENCOUNTER 2022-05-06 16:36 | Emergency (ER) | payer MEDICARE ==
[2022-05-06 17:36] LABS: Hemoglobin 10.2 g/dL (12.0-16.0); Red Blood Cell (RBC) Count 3.21 mill/uL (4.20-5.40); White Blood Cell (WBC) Count 5.1 thou/uL (4.8-10.8)
[2022-05-06 17:37] LABS: Mean Corpuscular HGB CONC 33.1 g/dL (32.0-36.0); Mean Corpuscular Hemoglobin 31.6 pg (27.0-31.0); Mean Corpuscular Volume 95.6 fL (78.0-98.0); Mean Platelet Volume 7.7 fL (7.4-10.4); Platelet Count 151 thou/uL (130-400); RBC Distribution Width 12.7 % (11.5-14.5)
[2022-05-06 17:45] LABS: INR-International Normal Ratio 1.9; PTT 38.8 sec (22.9-36.1)
[2022-05-06 17:53] LABS: ALT (SGPT) Less than 7 U/L (8-55); AST (SGOT) 9 U/L (5-34); Alkaline Phosphatase 37 U/L (40-110); Anion Gap 15 mmol/L (10-20); BUN (Urea Nitrogen) 26 mg/dL (9.8-20.1); Bilirubin, Total 0.7 mg/dL (0.2-1.2); Calc. Creatinine Clearance 0 mL/min (70-130); Calcium 7.5 mg/dL (7.8-10.44); Carbon Dioxide 28 mmol/L (23-31); Chloride 95 mmol/L (98-107); Estimated GFR 24; Globulin 3.2 g/dL (2.4-3.5); Glucose 155 mg/dL (83-110); Potassium 3.1 mmol/L (3.5-5.1); Protein, Total 6.2 g/dL (5.8-8.1); Sodium 135 mmol/L (136-145)
[2022-05-06 18:05] LABS: Band 3 % (5-11); Eosinophils 2 % (0-10); Lymphocytes 16 % (21-51); MDiff Complete? YES; Monocytes 11 % (0-10); Neutrophil 67 % (42-75); Platelet Morphology Comment Appears Adequate; Polychromasia SLIGHT = 2-3 cells (100X) (0-2/hpf)
[2022-05-06] MEDS ORDERED: Pot Chloride/Pot Bicarb/Cit Ac 25 mEq Effervescent Tablet ONE (18:56)
== END 2022-05-06 19:20 | disposition home or self-care (01) ==
LOC: ERS 16:36
DX: M25.571 Pain in right ankle and joints of right foot (principal); E87.6 Hypokalemia; J44.9 Chronic obstructive pulmonary disease, unspecified; E03.9 Hypothyroidism, unspecified; I11.0 Hypertensive heart disease with heart failure; I50.9 Heart failure, unspecified; E11.9 Type 2 diabetes mellitus without complications; Z79.899 Other long term (current) drug therapy
CPT/HCPCS: 36415; 80053; 85025; 85610; 85730

== ENCOUNTER 2022-06-23 01:26 | Inpatient (IN) | payer MEDICARE ==
[2022-06-23] MEDS ORDERED: Morphine 4 MG/ML VIAL ONE (02:58)
[2022-06-23 03:38] LABS: #Eosinphils 0.3 thou/uL (0.0-0.7); #Lymphocytes 1.4 thou/uL (1.20-3.40); #Monocytes 1.1 thou/uL (0.11-0.59); #Neutrophils 12.6 thou/uL (1.40-6.50); %Basophils 0.1 % (0.0-1.0); %Eosinophils 1.8 % (0.0-10.0); %Lymphocytes 9.4 % (21.0-51.0); %Monocytes 6.8 % (0.0-10.0); %Neutrophils 81.9 % (42.0-75.0); Hemoglobin 13.4 g/dL (12.0-16.0); Mean Corpuscular HGB CONC 33.7 g/dL (32.0-36.0); Mean Corpuscular Hemoglobin 30.8 pg (27.0-31.0); Mean Corpuscular Volume 91.6 fL (78.0-98.0); Mean Platelet Volume 8.8 fL (7.4-10.4); Platelet Count 278 thou/uL (130-400); RBC Distribution Width 13.2 % (11.5-14.5); Red Blood Cell (RBC) Count 4.35 mill/uL (4.20-5.40); White Blood Cell (WBC) Count 15.4 thou/uL (4.8-10.8)
[2022-06-23 03:55] LABS: INR-International Normal Ratio 2.9; Prothrombin Time 31.1 sec (12.0-14.7)
[2022-06-23 04:00] LABS: ALT (SGPT) 17 U/L (8-55); AST (SGOT) 20 U/L (5-34); Albumin 3.7 g/dL (3.4-4.8); Alkaline Phosphatase 48 U/L (40-110); Anion Gap 17 mmol/L (10-20); BUN (Urea Nitrogen) 32 mg/dL (9.8-20.1); Bilirubin, Total 0.4 mg/dL (0.2-1.2); Calc. Creatinine Clearance 0 mL/min (70-130); Calcium 8.9 mg/dL (7.8-10.44); Carbon Dioxide 22 mmol/L (23-31); Chloride 98 mmol/L (98-107); Estimated GFR 18; Globulin 3.2 g/dL (2.4-3.5); Glucose 116 mg/dL (83-110); Potassium 4.1 mmol/L (3.5-5.1); Protein, Total 6.9 g/dL (5.8-8.1); Sodium 133 mmol/L (136-145)
[2022-06-23 04:02] LABS: Troponin I 0.011 ng/mL (< 0.028)
[2022-06-23] MEDS ORDERED: Morphine 4 MG/ML VIAL SLOW IVP PRN (05:42)
[2022-06-23] MEDS ORDERED: Acetaminophen 325 MG TAB PO PRN (05:45)
[2022-06-23] MEDS ORDERED: Ondansetron ODT 4 MG TAB SL PRN (05:45)
[2022-06-23] MEDS ORDERED: Ondansetron PF 4 MG/2 ML Vial IVP PRN ×2 (05:45→06:09)
[2022-06-23] MEDS ORDERED: Sodium Chloride 0.9% 1,000 ML IV SCH (05:45)
[2022-06-23] MEDS ORDERED: Fentanyl 100 MCG/2 ML VIAL ONE (06:01)
[2022-06-23] MEDS ORDERED: Dextrose 50% Abboject 50 ML SYRINGE SLOW IVP PRN (06:09)
[2022-06-23] MEDS ORDERED: hydrALAZINE 20 MG/ML VIAL SLOW IVP PRN (06:09)
[2022-06-23] MEDS ORDERED: Dextrose 5% in Water 1,000 ML IV PRN (06:09)
[2022-06-23] MEDS ORDERED: Acetaminophen 500 MG TAB PO SCH ×3 (06:15→15:00)
[2022-06-23] MEDS ORDERED: Famotidine 20 MG TAB PO SCH (09:00)
[2022-06-23] MEDS: Cyclobenzaprine 10 MG TAB PO PRN ×2 (09:24→20:36)
[2022-06-23] MEDS: Pregabalin 50 MG CAP PO SCH ×2 (09:24→20:37)
[2022-06-23 10:09] LABS: Bilirubin Negative (Negative); Blood, Urine Negative (Negative); Clarity Clear (Clear); Glucose, Urine (Dipstick) Normal (Negative); Ketone, Urine Negative (Negative); Leukocyte Negative Leu/uL (Negative); Nitrite Negative (Negative); Protein, Urine (Dipstick) Negative (Neg-Trace); RBC/HPF 0-3 HPF (0-3); Specific Gravity, Urine 1.014 (1.002-1.036); Urobilinogen Normal mg/dL (Less than 2); WBC/HPF 0-3 HPF (0-3)
[2022-06-23 10:10] LABS: Bacteria/HPF Rare-Few HPF (None Seen)
[2022-06-23 11:08] VITALS: BMI 34.9
[2022-06-23 11:15] LABS: SARS-CoV-2 NAA Rapid Test Not Detected (NotDetected)
[2022-06-23] MEDS ORDERED: Albuterol 200 PUFF (6.7GM INHALER) INH PRN (11:36)
[2022-06-23] MEDS ORDERED: traMADol HCl 50 MG TAB PO SCH (12:00)
[2022-06-23] MEDS ORDERED: Morphine 2 MG/ML VIAL SLOW IVP SCH (12:30)
[2022-06-23] MEDS: HYDROcodone/Acetaminophen 5/325 mg Tablet PO PRN ×2 (13:01→20:36)
[2022-06-23] MEDS: Budesonide 0.5 MG/2 ML NEB NEB SCH ×2 (14:53→23:45)
[2022-06-23] MEDS: Albuterol Sulfate 2.5 mg/3 ml Neb NEB SCH ×2 (14:56→23:45)
[2022-06-23] MEDS: Acetaminophen 325 MG TAB PO SCH ×2 (15:16→20:36)
[2022-06-23] MEDS: Furosemide 40 MG TAB PO SCH (20:36)
[2022-06-23] MEDS: Atorvastatin Calcium 20 MG TAB PO SCH (20:36)
[2022-06-24] MEDS: Acetaminophen 325 MG TAB PO SCH ×4 (03:30→21:07)
[2022-06-24 06:09] LABS: #Basophils 0.1 thou/uL (0.0-0.2); #Eosinphils 1.4 thou/uL (0.0-0.7); #Lymphocytes 1.8 thou/uL (1.20-3.40); #Neutrophils 4.5 thou/uL (1.40-6.50); %Basophils 0.6 % (0.0-1.0); %Eosinophils 16.4 % (0.0-10.0); %Lymphocytes 20.5 % (21.0-51.0); %Monocytes 10.8 % (0.0-10.0); %Neutrophils 51.7 % (42.0-75.0); Hemoglobin 12.5 g/dL (12.0-16.0); Mean Corpuscular HGB CONC 33.6 g/dL (32.0-36.0); Mean Corpuscular Hemoglobin 31.2 pg (27.0-31.0); Mean Corpuscular Volume 92.7 fL (78.0-98.0); Mean Platelet Volume 8.8 fL (7.4-10.4); Platelet Count 200 thou/uL (130-400); Red Blood Cell (RBC) Count 4.02 mill/uL (4.20-5.40); White Blood Cell (WBC) Count 8.8 thou/uL (4.8-10.8)
[2022-06-24] MEDS: Budesonide 0.5 MG/2 ML NEB NEB SCH ×3 (06:26→23:12)
[2022-06-24] MEDS: Albuterol Sulfate 2.5 mg/3 ml Neb NEB SCH ×3 (06:26→23:11)
[2022-06-24 06:29] LABS: INR-International Normal Ratio 3.5; PTT 71.7 sec (22.9-36.1); Prothrombin Time 36.1 sec (12.0-14.7)
[2022-06-24 06:30] LABS: Anion Gap 15 mmol/L (10-20); BUN (Urea Nitrogen) 30 mg/dL (9.8-20.1); Calc. Creatinine Clearance 22 mL/min (70-130); Calcium 8.4 mg/dL (7.8-10.44); Carbon Dioxide 23 mmol/L (23-31); Chloride 101 mmol/L (98-107); Estimated GFR 19; Glucose 120 mg/dL (83-110); Magnesium 1.5 mg/dL (1.6-2.6); Phosphorus 4.6 mg/dL (2.3-4.7); Potassium 4.5 mmol/L (3.5-5.1); Sodium 134 mmol/L (136-145)
[2022-06-24] MEDS ORDERED: Magnesium Sulfate In Water 4 GM in Premix Bag 1 BAG IVPB SCH (07:45)
[2022-06-24] MEDS: Calcitriol 0.25 MCG CAP PO SCH (08:39)
[2022-06-24] MEDS: Alogliptin 6.25 MG TAB PO SCH (08:39)
[2022-06-24] MEDS: Aspirin Chewable 81 MG TAB PO SCH (08:40)
[2022-06-24] MEDS: Febuxostat 40 MG TAB PO SCH (08:40)
[2022-06-24] MEDS: Furosemide 40 MG TAB PO SCH ×2 (08:40→20:56)
[2022-06-24] MEDS: Pregabalin 50 MG CAP PO SCH ×2 (08:41→20:56)
[2022-06-24] MEDS: HYDROcodone/Acetaminophen 5/325 mg Tablet PO PRN (08:42)
[2022-06-24] MEDS: Atorvastatin Calcium 20 MG TAB PO SCH (20:57)
[2022-06-25] MEDS: Acetaminophen 325 MG TAB PO SCH ×2 (03:15→09:37)
[2022-06-25] MEDS: HYDROcodone/Acetaminophen 5/325 mg Tablet PO PRN (05:40)
[2022-06-25 06:36] LABS: #Basophils 0.1 thou/uL (0.0-0.2); #Eosinphils 1.8 thou/uL (0.0-0.7); #Lymphocytes 1.5 thou/uL (1.20-3.40); #Monocytes 0.9 thou/uL (0.11-0.59); #Neutrophils 4.9 thou/uL (1.40-6.50); %Basophils 0.6 % (0.0-1.0); %Eosinophils 19.5 % (0.0-10.0); %Lymphocytes 16.3 % (21.0-51.0); %Monocytes 9.7 % (0.0-10.0); %Neutrophils 53.9 % (42.0-75.0); Hemoglobin 13.1 g/dL (12.0-16.0); Mean Corpuscular HGB CONC 33.1 g/dL (32.0-36.0); Mean Corpuscular Hemoglobin 30.9 pg (27.0-31.0); Mean Corpuscular Volume 93.1 fL (78.0-98.0); Mean Platelet Volume 8.8 fL (7.4-10.4); Platelet Count 218 thou/uL (130-400); Red Blood Cell (RBC) Count 4.24 mill/uL (4.20-5.40); White Blood Cell (WBC) Count 9.2 thou/uL (4.8-10.8)
[2022-06-25] MEDS: Budesonide 0.5 MG/2 ML NEB NEB SCH ×2 (06:40→14:22)
[2022-06-25] MEDS: Albuterol Sulfate 2.5 mg/3 ml Neb NEB SCH ×2 (06:43→14:23)
[2022-06-25 07:16] LABS: Anion Gap 15 mmol/L (10-20); BUN (Urea Nitrogen) 26 mg/dL (9.8-20.1); Calc. Creatinine Clearance 31 mL/min (70-130); Calcium 8.7 mg/dL (7.8-10.44); Carbon Dioxide 23 mmol/L (23-31); Chloride 102 mmol/L (98-107); Estimated GFR 28; Glucose 118 mg/dL (83-110); Magnesium 2.2 mg/dL (1.6-2.6); Phosphorus 3.9 mg/dL (2.3-4.7); Potassium 4.4 mmol/L (3.5-5.1); Sodium 136 mmol/L (136-145)
[2022-06-25] MEDS: Pregabalin 50 MG CAP PO SCH ×2 (09:36→21:39)
[2022-06-25] MEDS: Calcitriol 0.25 MCG CAP PO SCH (09:36)
[2022-06-25] MEDS: Aspirin Chewable 81 MG TAB PO SCH (09:36)
[2022-06-25] MEDS: Furosemide 40 MG TAB PO SCH ×2 (09:37→21:40)
[2022-06-25] MEDS: Alogliptin 6.25 MG TAB PO SCH (09:38)
[2022-06-25] MEDS: Febuxostat 40 MG TAB PO SCH (09:38)
[2022-06-25] MEDS: HYDROcodone/Acetaminophen 10/325 mg Tablet PO SCH ×2 (12:10→18:02)
[2022-06-25] MEDS: Atorvastatin Calcium 20 MG TAB PO SCH (21:39)
[2022-06-25] MEDS: Cyclobenzaprine 10 MG TAB PO PRN (21:39)
[2022-06-26] MEDS: Albuterol Sulfate 2.5 mg/3 ml Neb NEB SCH ×4 (01:05→18:35)
[2022-06-26] MEDS: Budesonide 0.5 MG/2 ML NEB NEB SCH ×4 (01:06→18:36)
[2022-06-26] MEDS: HYDROcodone/Acetaminophen 10/325 mg Tablet PO SCH ×4 (05:13→17:43)
[2022-06-26 06:40] LABS: Anion Gap 12 mmol/L (10-20); BUN (Urea Nitrogen) 28 mg/dL (9.8-20.1); Calc. Creatinine Clearance 31 mL/min (70-130); Calcium 8.5 mg/dL (7.8-10.44); Carbon Dioxide 26 mmol/L (23-31); Chloride 100 mmol/L (98-107); Estimated GFR 28; Glucose 145 mg/dL (83-110); Magnesium 1.7 mg/dL (1.6-2.6); Phosphorus 3.1 mg/dL (2.3-4.7); Potassium 4.4 mmol/L (3.5-5.1); Sodium 134 mmol/L (136-145)
[2022-06-26] MEDS: Alogliptin 6.25 MG TAB PO SCH (09:41)
[2022-06-26] MEDS: Pregabalin 50 MG CAP PO SCH ×2 (09:42→21:37)
[2022-06-26] MEDS: Furosemide 40 MG TAB PO SCH ×2 (09:42→21:12)
[2022-06-26] MEDS: Calcitriol 0.25 MCG CAP PO SCH (09:42)
[2022-06-26] MEDS: Aspirin Chewable 81 MG TAB PO SCH (09:42)
[2022-06-26] MEDS: Febuxostat 40 MG TAB PO SCH (09:42)
[2022-06-26] MEDS: Cyclobenzaprine 10 MG TAB PO PRN (09:46)
[2022-06-26] MEDS: HYDROcodone/Acetaminophen 10/325 mg Tablet PO PRN (11:02)
[2022-06-26] MEDS: cloNIDine 0.1 MG TAB PO SCH ×2 (11:03→17:43)
[2022-06-26] MEDS ORDERED: Warfarin Sodium 1 MG TAB PO SCH (11:15)
[2022-06-26 12:35] LABS: Prothrombin Time 22.7 sec (12.0-14.7)
[2022-06-26] MEDS ORDERED: Warfarin Sodium 0.5 MG HALF.TAB PO SCH (17:00)
[2022-06-26] MEDS ORDERED: Heparin 5,000 UNITS/ML VIAL SC SCH (21:00)
[2022-06-26] MEDS: Senokot S 8.6-50 MG TAB PO SCH (21:12)
[2022-06-26] MEDS: Atorvastatin Calcium 20 MG TAB PO SCH (21:14)
[2022-06-27] MEDS: HYDROcodone/Acetaminophen 10/325 mg Tablet PO SCH ×5 (01:04→23:10)
[2022-06-27] MEDS: cloNIDine 0.1 MG TAB PO SCH ×5 (01:05→23:09)
[2022-06-27 06:25] LABS: INR-International Normal Ratio 1.7; Prothrombin Time 20.4 sec (12.0-14.7)
[2022-06-27 06:37] LABS: Anion Gap 14 mmol/L (10-20); BUN (Urea Nitrogen) 32 mg/dL (9.8-20.1); Calc. Creatinine Clearance 32 mL/min (70-130); Calcium 8.3 mg/dL (7.8-10.44); Carbon Dioxide 24 mmol/L (23-31); Chloride 98 mmol/L (98-107); Estimated GFR 29; Glucose 137 mg/dL (83-110); Magnesium 1.6 mg/dL (1.6-2.6); Phosphorus 3.4 mg/dL (2.3-4.7); Potassium 4.3 mmol/L (3.5-5.1); Sodium 132 mmol/L (136-145)
[2022-06-27] MEDS: Albuterol Sulfate 2.5 mg/3 ml Neb NEB SCH ×3 (07:38→22:43)
[2022-06-27] MEDS: Budesonide 0.5 MG/2 ML NEB NEB SCH ×3 (07:39→22:43)
[2022-06-27] MEDS: Calcitriol 0.25 MCG CAP PO SCH (08:32)
[2022-06-27] MEDS: Aspirin Chewable 81 MG TAB PO SCH (08:32)
[2022-06-27] MEDS: Senokot S 8.6-50 MG TAB PO SCH ×2 (08:32→23:15)
[2022-06-27] MEDS: Furosemide 40 MG TAB PO SCH ×2 (08:34→23:09)
[2022-06-27] MEDS: Alogliptin 6.25 MG TAB PO SCH (08:35)
[2022-06-27] MEDS: Febuxostat 40 MG TAB PO SCH (08:35)
[2022-06-27] MEDS: Pregabalin 50 MG CAP PO SCH ×2 (08:35→23:08)
[2022-06-27] MEDS: HYDROcodone/Acetaminophen 10/325 mg Tablet PO PRN (08:37)
[2022-06-27] MEDS: Sodium Chloride 1 GM TAB PO SCH ×3 (08:38→23:20)
[2022-06-27] MEDS: Polyethylene Glycol 3350 17 GM Packet PO SCH (08:41)
[2022-06-27] MEDS ORDERED: Warfarin Sodium 1 MG TAB PO SCH (17:00)
[2022-06-27] MEDS: Atorvastatin Calcium 20 MG TAB PO SCH (23:09)
[2022-06-28] MEDS: cloNIDine 0.1 MG TAB PO SCH ×2 (05:56→12:15)
[2022-06-28] MEDS: HYDROcodone/Acetaminophen 10/325 mg Tablet PO SCH ×2 (05:56→12:15)
[2022-06-28] MEDS: Albuterol Sulfate 2.5 mg/3 ml Neb NEB SCH (07:46)
[2022-06-28] MEDS: Budesonide 0.5 MG/2 ML NEB NEB SCH (07:47)
[2022-06-28] MEDS: Polyethylene Glycol 3350 17 GM Packet PO SCH (09:06)
[2022-06-28] MEDS: Senokot S 8.6-50 MG TAB PO SCH (09:06)
[2022-06-28] MEDS: Aspirin Chewable 81 MG TAB PO SCH (09:07)
[2022-06-28] MEDS: Calcitriol 0.25 MCG CAP PO SCH (09:07)
[2022-06-28] MEDS: Furosemide 40 MG TAB PO SCH (09:07)
[2022-06-28] MEDS: Pregabalin 50 MG CAP PO SCH (09:09)
[2022-06-28] MEDS: Febuxostat 40 MG TAB PO SCH (09:10)
[2022-06-28] MEDS: Alogliptin 6.25 MG TAB PO SCH (09:10)
[2022-06-28] MEDS: Sodium Chloride 1 GM TAB PO SCH (09:10)
[2022-06-28] MEDS: HYDROcodone/Acetaminophen 10/325 mg Tablet PO PRN (09:22)
[2022-06-28 09:43] LABS: INR-International Normal Ratio 1.6; Prothrombin Time 19.4 sec (12.0-14.7)
[2022-06-28 12:07] VITALS: BP 108/67; TEMP 97.6
== END 2022-06-28 12:30 | DRG 552 ==
LOC: ERS 01:26 → ERHOLD 05:33 → OBSVTOIN 06:09 → SURG A 08:47
PROVIDERS: ADMIT Surgery; ATTEND Surgery
DX: S32.110A Nondisplaced Zone I fracture of sacrum, initial encounter for closed fracture (principal); N17.9 Acute kidney failure, unspecified; I13.0 Hypertensive heart and chronic kidney disease with heart failure and stage 1 through stage 4 chronic kidney disease, or unspecified chronic kidney disease; E87.1 Hypo-osmolality and hyponatremia; Z20.822 Contact with and (suspected) exposure to COVID-19; J44.9 Chronic obstructive pulmonary disease, unspecified; I50.9 Heart failure, unspecified; I48.0 Paroxysmal atrial fibrillation; N18.9 Chronic kidney disease, unspecified; M10.9 Gout, unspecified; G89.29 Other chronic pain; W18.30XA Fall on same level, unspecified, initial encounter; E83.42 Hypomagnesemia; Z79.02 Long term (current) use of antithrombotics/antiplatelets; Z90.710 Acquired absence of both cervix and uterus; Z90.09 Acquired absence of other part of head and neck; Z98.42 Cataract extraction status, left eye; Z98.41 Cataract extraction status, right eye; Z88.0 Allergy status to penicillin; Z88.8 Allergy status to other drugs, medicaments and biological substances; Z91.041 Radiographic dye allergy status; Z91.013 Allergy to seafood; Z79.899 Other long term (current) drug therapy; Z79.51 Long term (current) use of inhaled steroids
CPT/HCPCS: 36415; 36416; 70450; 72131; 72192; 80048; 80053; 81001; 83735; 84100; 84484; 85025; 85610; 85730; 93005; 94640; 96374; 96375; G0378; G0390; J2270; J3010; J3475; J7050; J7611; J7626; U0002

== ENCOUNTER 2022-06-29 21:41 | Inpatient (IN) | payer MEDICARE ==
[2022-06-29] MEDS ORDERED: cefTRIAXone\\ROCEPHIN 2 GM VIAL ONE (22:16)
[2022-06-29 22:19] LABS: #Lymphocytes 1.2 thou/uL (1.20-3.40); #Monocytes 1.5 thou/uL (0.11-0.59); #Neutrophils 9.1 thou/uL (1.40-6.50); %Basophils 0.3 % (0.0-1.0); %Eosinophils 0.1 % (0.0-10.0); %Lymphocytes 10.4 % (21.0-51.0); %Monocytes 12.3 % (0.0-10.0); Hemoglobin 11.2 g/dL (12.0-16.0); Mean Corpuscular HGB CONC 32.7 g/dL (32.0-36.0); Mean Corpuscular Hemoglobin 30.3 pg (27.0-31.0); Mean Corpuscular Volume 92.8 fL (78.0-98.0); Mean Platelet Volume 8.5 fL (7.4-10.4); Platelet Count 223 thou/uL (130-400); RBC Distribution Width 13.1 % (11.5-14.5); Red Blood Cell (RBC) Count 3.68 mill/uL (4.20-5.40); White Blood Cell (WBC) Count 11.8 thou/uL (4.8-10.8)
[2022-06-29 22:27] LABS: Bilirubin Negative (Negative); Blood, Urine 2+ (Negative); Clarity Clear (Clear); Glucose, Urine (Dipstick) Normal (Negative); Ketone, Urine Negative (Negative); Leukocyte 250 Leu/uL (Negative); Nitrite Negative (Negative); Protein, Urine (Dipstick) Negative (Neg-Trace); RBC/HPF 21-50 HPF (0-3); Renal Epithelial 0-3 HPF (None Seen); Specific Gravity, Urine 1.016 (1.002-1.036); Squamous Epithelial None Seen HPF (0-3); Urobilinogen Normal mg/dL (Less than 2)
[2022-06-29 22:29] LABS: Bacteria/HPF 1+ HPF (None Seen)
[2022-06-29 22:44] LABS: ALT (SGPT) 11 U/L (8-55); AST (SGOT) 11 U/L (5-34); Albumin 3.1 g/dL (3.4-4.8); Alkaline Phosphatase 55 U/L (40-110); Anion Gap 15 mmol/L (10-20); BUN (Urea Nitrogen) 49 mg/dL (9.8-20.1); Calc. Creatinine Clearance 0 mL/min (70-130); Calcium 8.8 mg/dL (7.8-10.44); Carbon Dioxide 25 mmol/L (23-31); Chloride 99 mmol/L (98-107); Estimated GFR 22; Globulin 3.4 g/dL (2.4-3.5); Glucose 155 mg/dL (83-110); Potassium 5.3 mmol/L (3.5-5.1); Protein, Total 6.5 g/dL (5.8-8.1); Sodium 134 mmol/L (136-145)
[2022-06-29 23:43] LABS: Bilirubin, Total 0.5 mg/dL (0.2-1.2)
[2022-06-30] MEDS ORDERED: Ondansetron PF 4 MG/2 ML Vial IVP PRN (01:15)
[2022-06-30] MEDS ORDERED: HumaLOG 300 UNITS/3 ML VIAL SC PRN (01:15)
[2022-06-30] MEDS ORDERED: Dextrose 5% in Water 1,000 ML IV PRN (01:15)
[2022-06-30] MEDS ORDERED: Ondansetron ODT 4 MG TAB SL PRN (01:15)
[2022-06-30] MEDS ORDERED: Acetaminophen 325 MG TAB PO PRN (01:15)
[2022-06-30] MEDS ORDERED: Dextrose 50% Abboject 50 ML SYRINGE SLOW IVP PRN (01:15)
[2022-06-30] MEDS ORDERED: Lactated Ringer's 1,000 ML IV SCH (01:30)
[2022-06-30] MEDS ORDERED: Meclizine HCl 25 MG TAB PO PRN (01:48)
[2022-06-30] MEDS ORDERED: Acetaminophen 325 MG Suppository ONE (02:02)
[2022-06-30 03:10] LABS: Magnesium 1.5 mg/dL (1.6-2.6); Phosphorus 4.4 mg/dL (2.3-4.7)
[2022-06-30] MEDS ORDERED: Magnesium 2 GM/50 ML(in water) 2 GM in Premix Bag 1 BAG IVPB SCH (04:00)
[2022-06-30] MEDS: Sodium Chloride 0.9% 1,000 ML IV SCH ×2 (05:40→11:19)
[2022-06-30 05:43] VITALS: BMI 31.1
[2022-06-30] MEDS: cloNIDine 0.1 MG TAB PO SCH ×4 (05:53→23:58)
[2022-06-30] MEDS: Lactated Ringer's 1,000 ML IV SCH ×3 (05:53→23:03)
[2022-06-30] MEDS: Budesonide 0.5 MG/2 ML NEB NEB SCH ×3 (06:57→22:53)
[2022-06-30 08:37] LABS: #Lymphocytes 1.6 thou/uL (1.20-3.40); #Monocytes 1.4 thou/uL (0.11-0.59); #Neutrophils 8.8 thou/uL (1.40-6.50); %Basophils 0.3 % (0.0-1.0); %Eosinophils 0.1 % (0.0-10.0); %Lymphocytes 13.5 % (21.0-51.0); %Monocytes 11.8 % (0.0-10.0); %Neutrophils 74.3 % (42.0-75.0); Hemoglobin 10.4 g/dL (12.0-16.0); Mean Corpuscular HGB CONC 33.3 g/dL (32.0-36.0); Mean Corpuscular Volume 93.3 fL (78.0-98.0); Mean Platelet Volume 8.6 fL (7.4-10.4); Platelet Count 187 thou/uL (130-400); Red Blood Cell (RBC) Count 3.36 mill/uL (4.20-5.40); White Blood Cell (WBC) Count 11.8 thou/uL (4.8-10.8)
[2022-06-30 08:56] LABS: ALT (SGPT) Less than 7 U/L (8-55); AST (SGOT) 13 U/L (5-34); Albumin 2.6 g/dL (3.4-4.8); Alkaline Phosphatase 42 U/L (40-110); Anion Gap 16 mmol/L (10-20); BUN (Urea Nitrogen) 46 mg/dL (9.8-20.1); Bilirubin, Total 0.3 mg/dL (0.2-1.2); Calc. Creatinine Clearance 32 mL/min (70-130); Calcium 7.8 mg/dL (7.8-10.44); Carbon Dioxide 22 mmol/L (23-31); Chloride 101 mmol/L (98-107); Estimated GFR 28; Globulin 2.9 g/dL (2.4-3.5); Glucose 137 mg/dL (83-110); Potassium 4.7 mmol/L (3.5-5.1); Protein, Total 5.5 g/dL (5.8-8.1); Sodium 134 mmol/L (136-145)
[2022-06-30] MEDS ORDERED: Pregabalin 50 MG CAP PO SCH (09:00)
[2022-06-30] MEDS ORDERED: Furosemide 20 MG TAB PO SCH (09:00)
[2022-06-30] MEDS ORDERED: Febuxostat 40 MG TAB PO SCH (09:00)
[2022-06-30] MEDS ORDERED: Enoxaparin Sodium 30 MG/0.3 ML SYRINGE SC SCH (09:00)
[2022-06-30] MEDS: Aspirin Chewable 81 MG TAB PO SCH (11:19)
[2022-06-30] MEDS: Cefepime 1 GM in Sodium Chloride 0.9% 100 ML IVPB SCH (11:19)
[2022-06-30] MEDS: NIFEdipine XL 30 MG TAB PO SCH (11:19)
[2022-06-30] MEDS: Calcitriol 0.25 MCG CAP PO SCH (11:19)
[2022-06-30] MEDS: Alogliptin 6.25 MG TAB PO SCH (11:19)
[2022-06-30] MEDS: Polyethylene Glycol 3350 17 GM Packet PO SCH (11:21)
[2022-06-30] MEDS: Senokot S 8.6-50 MG TAB PO SCH ×2 (11:21→21:09)
[2022-06-30] MEDS: Warfarin Sodium 1 MG TAB PO SCH (18:23)
[2022-06-30] MEDS: Atorvastatin Calcium 20 MG TAB PO SCH (21:09)
[2022-06-30] MEDS: Albuterol Sulfate 2.5 mg/3 ml Neb NEB PRN (22:56)
[2022-07-01 00:26] LABS: Vancomycin, Random 18.9 ug/mL (See Comment)
[2022-07-01] MEDS ORDERED: Vancomycin HCl 500 MG in Sodium Chloride 0.9% 100 ML IVPB SCH (00:45)
[2022-07-01] MEDS ORDERED: Vancomycin 1 GM in Premix Bag 1 BAG IVPB SCH (01:00)
[2022-07-01 04:48] LABS: #Eosinphils 0.5 thou/uL (0.0-0.7); #Lymphocytes 1.4 thou/uL (1.20-3.40); #Monocytes 0.9 thou/uL (0.11-0.59); #Neutrophils 6.5 thou/uL (1.40-6.50); %Basophils 0.1 % (0.0-1.0); %Eosinophils 5.1 % (0.0-10.0); %Lymphocytes 15.2 % (21.0-51.0); %Neutrophils 69.7 % (42.0-75.0); Hemoglobin 10.6 g/dL (12.0-16.0); Mean Corpuscular HGB CONC 33.1 g/dL (32.0-36.0); Mean Corpuscular Hemoglobin 30.8 pg (27.0-31.0); Mean Corpuscular Volume 93.2 fL (78.0-98.0); Mean Platelet Volume 8.4 fL (7.4-10.4); Platelet Count 178 thou/uL (130-400); RBC Distribution Width 13.1 % (11.5-14.5); Red Blood Cell (RBC) Count 3.44 mill/uL (4.20-5.40); White Blood Cell (WBC) Count 9.3 thou/uL (4.8-10.8)
[2022-07-01 04:57] LABS: INR-International Normal Ratio 1.7; Prothrombin Time 20.4 sec (12.0-14.7)
[2022-07-01 05:13] LABS: ALT (SGPT) 9 U/L (8-55); AST (SGOT) 13 U/L (5-34); Albumin 2.5 g/dL (3.4-4.8); Alkaline Phosphatase 42 U/L (40-110); Anion Gap 14 mmol/L (10-20); BUN (Urea Nitrogen) 39 mg/dL (9.8-20.1); Bilirubin, Total 0.3 mg/dL (0.2-1.2); Calc. Creatinine Clearance 46 mL/min (70-130); Carbon Dioxide 22 mmol/L (23-31); Chloride 103 mmol/L (98-107); Estimated GFR 43; Globulin 2.8 g/dL (2.4-3.5); Glucose 114 mg/dL (83-110); Potassium 4.5 mmol/L (3.5-5.1); Protein, Total 5.3 g/dL (5.8-8.1); Sodium 134 mmol/L (136-145)
[2022-07-01] MEDS: cloNIDine 0.1 MG TAB PO SCH ×2 (06:45→12:55)
[2022-07-01] MEDS: Budesonide 0.5 MG/2 ML NEB NEB SCH ×3 (06:59→23:33)
[2022-07-01] MEDS: Aspirin Chewable 81 MG TAB PO SCH (09:28)
[2022-07-01] MEDS: NIFEdipine XL 30 MG TAB PO SCH ×2 (09:28→20:44)
[2022-07-01] MEDS: Calcitriol 0.25 MCG CAP PO SCH (09:28)
[2022-07-01] MEDS: Senokot S 8.6-50 MG TAB PO SCH ×2 (09:29→20:45)
[2022-07-01] MEDS: Alogliptin 6.25 MG TAB PO SCH (09:29)
[2022-07-01] MEDS: Polyethylene Glycol 3350 17 GM Packet PO SCH (09:29)
[2022-07-01] MEDS: Cefepime 1 GM in Sodium Chloride 0.9% 100 ML IVPB SCH (09:30)
[2022-07-01] MEDS: Lactated Ringer's 1,000 ML IV SCH ×3 (09:37→20:53)
[2022-07-01] MEDS ORDERED: cloNIDine 0.1 MG TAB PO PRN (12:35)
[2022-07-01] MEDS ORDERED: Acetaminophen 325 MG TAB PO PRN (12:56)
[2022-07-01] MEDS ORDERED: Empagliflozin 25 MG TAB PO SCH (13:00)
[2022-07-01] MEDS: Albuterol Sulfate 2.5 mg/3 ml Neb NEB PRN ×2 (14:40→23:35)
[2022-07-01] MEDS: Warfarin Sodium 1 MG TAB PO SCH (16:19)
[2022-07-01] MEDS: Atorvastatin Calcium 20 MG TAB PO SCH (20:45)
[2022-07-01] MEDS: Acetaminophen 325 MG TAB PO PRN (20:46)
[2022-07-02 00:28] LABS: Vancomycin, Random 16.7 ug/mL (See Comment)
[2022-07-02] MEDS ORDERED: Vancomycin HCl 500 MG in Sodium Chloride 0.9% 100 ML IVPB SCH (03:00)
[2022-07-02 04:36] LABS: #Eosinphils 0.6 thou/uL (0.0-0.7); #Lymphocytes 1.3 thou/uL (1.20-3.40); #Monocytes 0.9 thou/uL (0.11-0.59); %Basophils 0.4 % (0.0-1.0); %Eosinophils 8.9 % (0.0-10.0); %Lymphocytes 19.4 % (21.0-51.0); %Monocytes 12.6 % (0.0-10.0); %Neutrophils 58.6 % (42.0-75.0); Hemoglobin 11.7 g/dL (12.0-16.0); Mean Corpuscular HGB CONC 33.7 g/dL (32.0-36.0); Mean Corpuscular Hemoglobin 31.5 pg (27.0-31.0); Mean Corpuscular Volume 93.7 fL (78.0-98.0); Mean Platelet Volume 8.6 fL (7.4-10.4); Platelet Count 176 thou/uL (130-400); Red Blood Cell (RBC) Count 3.71 mill/uL (4.20-5.40); White Blood Cell (WBC) Count 6.9 thou/uL (4.8-10.8)
[2022-07-02 04:58] LABS: ALT (SGPT) 14 U/L (8-55); AST (SGOT) 19 U/L (5-34); Albumin 2.6 g/dL (3.4-4.8); Alkaline Phosphatase 53 U/L (40-110); Anion Gap 16 mmol/L (10-20); BUN (Urea Nitrogen) 25 mg/dL (9.8-20.1); Bilirubin, Total 0.3 mg/dL (0.2-1.2); Calc. Creatinine Clearance 58 mL/min (70-130); Calcium 8.5 mg/dL (7.8-10.44); Carbon Dioxide 21 mmol/L (23-31); Chloride 104 mmol/L (98-107); Estimated GFR 57; Globulin 3.1 g/dL (2.4-3.5); Glucose 133 mg/dL (83-110); Potassium 4.3 mmol/L (3.5-5.1); Protein, Total 5.7 g/dL (5.8-8.1); Sodium 137 mmol/L (136-145)
[2022-07-02] MEDS: Budesonide 0.5 MG/2 ML NEB NEB SCH ×3 (06:46→23:16)
[2022-07-02] MEDS: Alogliptin 6.25 MG TAB PO SCH (09:33)
[2022-07-02] MEDS: Calcitriol 0.25 MCG CAP PO SCH (09:34)
[2022-07-02] MEDS: NIFEdipine XL 30 MG TAB PO SCH ×2 (09:34→21:47)
[2022-07-02] MEDS: Aspirin Chewable 81 MG TAB PO SCH (09:34)
[2022-07-02] MEDS: Polyethylene Glycol 3350 17 GM Packet PO SCH (09:35)
[2022-07-02] MEDS: Empagliflozin 25 MG TAB PO SCH (09:35)
[2022-07-02] MEDS: Senokot S 8.6-50 MG TAB PO SCH ×2 (09:35→21:47)
[2022-07-02] MEDS ORDERED: Vancomycin Sliding Scale 1 EACH IVPB SCH (12:00)
[2022-07-02] MEDS: Albuterol Sulfate 2.5 mg/3 ml Neb NEB PRN ×2 (13:49→23:17)
[2022-07-02] MEDS: Lactated Ringer's 1,000 ML IV SCH (15:18)
[2022-07-02] MEDS ORDERED: Warfarin Sodium 1 MG TAB PO SCH (17:00)
[2022-07-02] MEDS: Warfarin Sodium 0.5 MG HALF.TAB PO SCH (19:26)
[2022-07-02] MEDS ORDERED: ALPRAZolam 0.25 MG TAB PO PRN (21:04)
[2022-07-02] MEDS: Atorvastatin Calcium 20 MG TAB PO SCH (21:48)
[2022-07-03 04:33] LABS: #Eosinphils 0.8 thou/uL (0.0-0.7); #Lymphocytes 1.6 thou/uL (1.20-3.40); #Monocytes 0.7 thou/uL (0.11-0.59); #Neutrophils 3.3 thou/uL (1.40-6.50); %Basophils 0.6 % (0.0-1.0); %Eosinophils 12.6 % (0.0-10.0); %Lymphocytes 24.8 % (21.0-51.0); %Monocytes 11.3 % (0.0-10.0); %Neutrophils 50.8 % (42.0-75.0); Hemoglobin 11.4 g/dL (12.0-16.0); Mean Corpuscular HGB CONC 33.2 g/dL (32.0-36.0); Mean Corpuscular Hemoglobin 30.9 pg (27.0-31.0); Mean Corpuscular Volume 93.1 fL (78.0-98.0); Mean Platelet Volume 8.1 fL (7.4-10.4); Platelet Count 221 thou/uL (130-400); RBC Distribution Width 12.9 % (11.5-14.5); Red Blood Cell (RBC) Count 3.69 mill/uL (4.20-5.40); White Blood Cell (WBC) Count 6.6 thou/uL (4.8-10.8)
[2022-07-03 04:53] LABS: ALT (SGPT) 15 U/L (8-55); AST (SGOT) 16 U/L (5-34); Albumin 2.9 g/dL (3.4-4.8); Alkaline Phosphatase 60 U/L (40-110); Anion Gap 13 mmol/L (10-20); BUN (Urea Nitrogen) 19 mg/dL (9.8-20.1); Bilirubin, Total 0.4 mg/dL (0.2-1.2); Calc. Creatinine Clearance 51 mL/min (70-130); Calcium 9.2 mg/dL (7.8-10.44); Carbon Dioxide 28 mmol/L (23-31); Chloride 102 mmol/L (98-107); Estimated GFR 47; Globulin 3.4 g/dL (2.4-3.5); Glucose 114 mg/dL (83-110); Potassium 4.1 mmol/L (3.5-5.1); Protein, Total 6.3 g/dL (5.8-8.1); Sodium 139 mmol/L (136-145)
[2022-07-03] MEDS: Albuterol Sulfate 2.5 mg/3 ml Neb NEB PRN ×3 (07:05→23:11)
[2022-07-03] MEDS: Budesonide 0.5 MG/2 ML NEB NEB SCH ×3 (07:06→23:10)
[2022-07-03] MEDS: NIFEdipine XL 30 MG TAB PO SCH ×2 (08:29→21:02)
[2022-07-03] MEDS: Aspirin Chewable 81 MG TAB PO SCH (08:29)
[2022-07-03] MEDS: Empagliflozin 25 MG TAB PO SCH (08:30)
[2022-07-03] MEDS: Senokot S 8.6-50 MG TAB PO SCH ×2 (08:30→21:04)
[2022-07-03] MEDS: Calcitriol 0.25 MCG CAP PO SCH (08:30)
[2022-07-03] MEDS: Polyethylene Glycol 3350 17 GM Packet PO SCH (08:30)
[2022-07-03] MEDS: Alogliptin 6.25 MG TAB PO SCH (10:12)
[2022-07-03] MEDS: Acetaminophen 325 MG TAB PO PRN (10:12)
[2022-07-03] MEDS: Warfarin Sodium 1 MG TAB PO SCH (18:18)
[2022-07-03] MEDS ORDERED: Scopolamine 1.5 mg/72 hour Patch TD SCH (19:00)
[2022-07-03] MEDS: Atorvastatin Calcium 20 MG TAB PO SCH (21:04)
[2022-07-04 04:52] LABS: #Eosinphils 0.7 thou/uL (0.0-0.7); #Lymphocytes 1.5 thou/uL (1.20-3.40); #Monocytes 0.9 thou/uL (0.11-0.59); #Neutrophils 3.8 thou/uL (1.40-6.50); %Basophils 0.2 % (0.0-1.0); %Eosinophils 10.3 % (0.0-10.0); %Monocytes 13.2 % (0.0-10.0); %Neutrophils 54.3 % (42.0-75.0); Hemoglobin 11.1 g/dL (12.0-16.0); Mean Corpuscular HGB CONC 33.4 g/dL (32.0-36.0); Mean Corpuscular Hemoglobin 30.9 pg (27.0-31.0); Mean Corpuscular Volume 92.5 fL (78.0-98.0); Mean Platelet Volume 8.5 fL (7.4-10.4); Platelet Count 215 thou/uL (130-400); RBC Distribution Width 12.8 % (11.5-14.5)
[2022-07-04 04:54] LABS: INR-International Normal Ratio 1.6; Prothrombin Time 19.2 sec (12.0-14.7)
[2022-07-04 05:07] LABS: ALT (SGPT) 13 U/L (8-55); AST (SGOT) 11 U/L (5-34); Albumin 2.8 g/dL (3.4-4.8); Alkaline Phosphatase 67 U/L (40-110); Anion Gap 14 mmol/L (10-20); BUN (Urea Nitrogen) 14 mg/dL (9.8-20.1); Bilirubin, Total 0.3 mg/dL (0.2-1.2); Calc. Creatinine Clearance 55 mL/min (70-130); Calcium 8.8 mg/dL (7.8-10.44); Carbon Dioxide 27 mmol/L (23-31); Chloride 99 mmol/L (98-107); Estimated GFR 54; Glucose 145 mg/dL (83-110); Potassium 3.5 mmol/L (3.5-5.1); Protein, Total 5.8 g/dL (5.8-8.1); Sodium 136 mmol/L (136-145)
[2022-07-04] MEDS: Acetaminophen 325 MG TAB PO PRN ×2 (05:28→21:26)
[2022-07-04] MEDS: Budesonide 0.5 MG/2 ML NEB NEB SCH ×3 (05:32→22:16)
[2022-07-04] MEDS: Albuterol Sulfate 2.5 mg/3 ml Neb NEB PRN ×2 (05:32→22:16)
[2022-07-04] MEDS: Alogliptin 6.25 MG TAB PO SCH (09:18)
[2022-07-04] MEDS: Aspirin Chewable 81 MG TAB PO SCH (09:18)
[2022-07-04] MEDS: Calcitriol 0.25 MCG CAP PO SCH (09:18)
[2022-07-04] MEDS: NIFEdipine XL 30 MG TAB PO SCH ×2 (09:19→21:26)
[2022-07-04] MEDS: Polyethylene Glycol 3350 17 GM Packet PO SCH (09:19)
[2022-07-04] MEDS: Empagliflozin 25 MG TAB PO SCH (09:19)
[2022-07-04] MEDS: Senokot S 8.6-50 MG TAB PO SCH ×2 (09:20→21:26)
[2022-07-04] MEDS: Warfarin Sodium 0.5 MG HALF.TAB PO SCH (17:00)
[2022-07-04] MEDS: Atorvastatin Calcium 20 MG TAB PO SCH (21:26)
[2022-07-05 04:40] LABS: #Eosinphils 0.8 thou/uL (0.0-0.7); #Lymphocytes 1.6 thou/uL (1.20-3.40); #Monocytes 0.8 thou/uL (0.11-0.59); %Basophils 0.7 % (0.0-1.0); %Eosinophils 11.7 % (0.0-10.0); %Lymphocytes 21.8 % (21.0-51.0); %Monocytes 10.9 % (0.0-10.0); Hemoglobin 11.4 g/dL (12.0-16.0); Mean Corpuscular HGB CONC 32.6 g/dL (32.0-36.0); Mean Corpuscular Hemoglobin 30.6 pg (27.0-31.0); Mean Corpuscular Volume 93.8 fL (78.0-98.0); Mean Platelet Volume 8.6 fL (7.4-10.4); Platelet Count 209 thou/uL (130-400); RBC Distribution Width 12.6 % (11.5-14.5); Red Blood Cell (RBC) Count 3.74 mill/uL (4.20-5.40); White Blood Cell (WBC) Count 7.3 thou/uL (4.8-10.8)
[2022-07-05 04:46] LABS: INR-International Normal Ratio 1.5; Prothrombin Time 18.4 sec (12.0-14.7)
[2022-07-05 05:03] LABS: ALT (SGPT) 12 U/L (8-55); AST (SGOT) 16 U/L (5-34); Albumin 2.8 g/dL (3.4-4.8); Alkaline Phosphatase 81 U/L (40-110); Anion Gap 16 mmol/L (10-20); BUN (Urea Nitrogen) 13 mg/dL (9.8-20.1); Bilirubin, Total 0.4 mg/dL (0.2-1.2); Calc. Creatinine Clearance 52 mL/min (70-130); Calcium 8.8 mg/dL (7.8-10.44); Carbon Dioxide 22 mmol/L (23-31); Chloride 101 mmol/L (98-107); Estimated GFR 50; Globulin 3.3 g/dL (2.4-3.5); Glucose 109 mg/dL (83-110); Potassium 3.9 mmol/L (3.5-5.1); Protein, Total 6.1 g/dL (5.8-8.1); Sodium 135 mmol/L (136-145)
[2022-07-05] MEDS: Budesonide 0.5 MG/2 ML NEB NEB SCH ×3 (06:33→19:52)
[2022-07-05] MEDS: Albuterol Sulfate 2.5 mg/3 ml Neb NEB PRN ×2 (06:35→13:34)
[2022-07-05] MEDS: NIFEdipine XL 30 MG TAB PO SCH ×2 (08:54→20:59)
[2022-07-05] MEDS: Empagliflozin 25 MG TAB PO SCH (08:55)
[2022-07-05] MEDS: Calcitriol 0.25 MCG CAP PO SCH (08:55)
[2022-07-05] MEDS: Aspirin Chewable 81 MG TAB PO SCH (08:55)
[2022-07-05] MEDS: Alogliptin 6.25 MG TAB PO SCH (08:55)
[2022-07-05] MEDS: Polyethylene Glycol 3350 17 GM Packet PO SCH (08:57)
[2022-07-05] MEDS: Senokot S 8.6-50 MG TAB PO SCH ×2 (08:57→21:00)
[2022-07-05] MEDS: Acetaminophen 325 MG TAB PO PRN (11:11)
[2022-07-05] MEDS: Warfarin Sodium 1 MG TAB PO SCH (16:49)
[2022-07-05] MEDS: Atorvastatin Calcium 20 MG TAB PO SCH (20:59)
[2022-07-06 05:19] LABS: #Eosinphils 1.2 thou/uL (0.0-0.7); #Lymphocytes 1.9 thou/uL (1.20-3.40); #Monocytes 0.9 thou/uL (0.11-0.59); #Neutrophils 4.1 thou/uL (1.40-6.50); %Basophils 0.3 % (0.0-1.0); %Eosinophils 14.9 % (0.0-10.0); %Lymphocytes 22.8 % (21.0-51.0); %Monocytes 11.3 % (0.0-10.0); %Neutrophils 50.6 % (42.0-75.0); Hemoglobin 11.7 g/dL (12.0-16.0); Mean Corpuscular HGB CONC 32.1 g/dL (32.0-36.0); Mean Corpuscular Hemoglobin 30.1 pg (27.0-31.0); Mean Corpuscular Volume 93.8 fL (78.0-98.0); Mean Platelet Volume 8.4 fL (7.4-10.4); Platelet Count 216 thou/uL (130-400); RBC Distribution Width 12.8 % (11.5-14.5); Red Blood Cell (RBC) Count 3.88 mill/uL (4.20-5.40); White Blood Cell (WBC) Count 8.1 thou/uL (4.8-10.8)
[2022-07-06 05:35] LABS: INR-International Normal Ratio 1.4
[2022-07-06 05:39] LABS: ALT (SGPT) 10 U/L (8-55); AST (SGOT) 12 U/L (5-34); Alkaline Phosphatase 94 U/L (40-110); Anion Gap 14 mmol/L (10-20); BUN (Urea Nitrogen) 12 mg/dL (9.8-20.1); Bilirubin, Total 0.3 mg/dL (0.2-1.2); Calc. Creatinine Clearance 49 mL/min (70-130); Calcium 8.4 mg/dL (7.8-10.44); Carbon Dioxide 23 mmol/L (23-31); Chloride 102 mmol/L (98-107); Estimated GFR 46; Globulin 3.1 g/dL (2.4-3.5); Glucose 113 mg/dL (83-110); Potassium 3.6 mmol/L (3.5-5.1); Protein, Total 6.1 g/dL (5.8-8.1); Sodium 135 mmol/L (136-145)
[2022-07-06] MEDS: Budesonide 0.5 MG/2 ML NEB NEB SCH ×2 (07:36→14:36)
[2022-07-06] MEDS: Calcitriol 0.25 MCG CAP PO SCH (09:26)
[2022-07-06] MEDS: Polyethylene Glycol 3350 17 GM Packet PO SCH (09:26)
[2022-07-06] MEDS: Aspirin Chewable 81 MG TAB PO SCH (09:26)
[2022-07-06] MEDS: Senokot S 8.6-50 MG TAB PO SCH (09:26)
[2022-07-06] MEDS: NIFEdipine XL 30 MG TAB PO SCH (09:26)
[2022-07-06] MEDS: Empagliflozin 25 MG TAB PO SCH (10:49)
[2022-07-06] MEDS: Alogliptin 6.25 MG TAB PO SCH (10:49)
[2022-07-06 11:32] VITALS: TEMP 97.7
[2022-07-06 15:58] VITALS: BP 129/53
[2022-07-06] MEDS ORDERED: Warfarin Sodium 1 MG TAB PO SCH (17:00)
[2022-07-07] MEDS ORDERED: Alogliptin 6.25 MG TAB PO SCH (09:00)
== END 2022-07-06 19:00 | DRG 698 ==
LOC: ERS 21:41 → INTOOBSV 06-30 00:59 → 2NO 06-30 00:59 → OBSVTOIN 07-02 09:40 → MSONC 07-05 16:28
PROVIDERS: ADMIT Specialist; ATTEND Student in an Organized Health Care Education/Training Program
DX: T83.511A Infection and inflammatory reaction due to indwelling urethral catheter, initial encounter (principal); Z66 Do not resuscitate; Z20.822 Contact with and (suspected) exposure to COVID-19; Z51.5 Encounter for palliative care; A41.81 Sepsis due to Enterococcus; I13.0 Hypertensive heart and chronic kidney disease with heart failure and stage 1 through stage 4 chronic kidney disease, or unspecified chronic kidney disease; N17.9 Acute kidney failure, unspecified; G93.49 Other encephalopathy; N39.0 Urinary tract infection, site not specified; E03.9 Hypothyroidism, unspecified; N18.9 Chronic kidney disease, unspecified; I50.9 Heart failure, unspecified; D63.1 Anemia in chronic kidney disease; K56.41 Fecal impaction; I48.0 Paroxysmal atrial fibrillation; E11.22 Type 2 diabetes mellitus with diabetic chronic kidney disease; J44.9 Chronic obstructive pulmonary disease, unspecified; M10.9 Gout, unspecified; I71.4 Abdominal aortic aneurysm, without rupture; E87.5 Hyperkalemia; E86.0 Dehydration; Y84.6 Urinary catheterization as the cause of abnormal reaction of the patient, or of later complication, without mention of misadventure at the time of the procedure; Z88.8 Allergy status to other drugs, medicaments and biological substances; Z91.041 Radiographic dye allergy status; Z88.0 Allergy status to penicillin; Z91.013 Allergy to seafood; Z79.899 Other long term (current) drug therapy; Z79.01 Long term (current) use of anticoagulants; Z95.828 Presence of other vascular implants and grafts; Z98.42 Cataract extraction status, left eye; Z98.41 Cataract extraction status, right eye; Z90.710 Acquired absence of both cervix and uterus; Z90.89 Acquired absence of other organs
CPT/HCPCS: 36415; 36416; 70450; 71045; 74176; 80053; 80202; 81003; 81015; 83605; 83735; 84100; 84443; 85025; 85610; 87040; 87077; 87086; 87186; 93005; 94640; 96361; 96374; 96375; 96376; G0378; J0692; J0696; J1815; J3370; J3475; J3490; J7030; J7050; J7120; J7611; J7620; J7626; U0003; U0005

== ENCOUNTER 2022-08-25 10:04 | Inpatient (IN) | payer MEDICARE ==
[2022-08-25 10:40] LABS: #Eosinphils 0.4 thou/uL (0.0-0.7); #Lymphocytes 1.1 thou/uL (1.20-3.40); #Monocytes 0.7 thou/uL (0.11-0.59); #Neutrophils 2.7 thou/uL (1.40-6.50); %Basophils 0.3 % (0.0-1.0); %Eosinophils 8.6 % (0.0-10.0); %Lymphocytes 21.8 % (21.0-51.0); %Monocytes 13.8 % (0.0-10.0); %Neutrophils 55.6 % (42.0-75.0); Hemoglobin 12.5 g/dL (12.0-16.0); Mean Corpuscular HGB CONC 30.8 g/dL (32.0-36.0); Mean Corpuscular Hemoglobin 27.8 pg (27.0-31.0); Mean Corpuscular Volume 90.2 fl (78.0-98.0); Mean Platelet Volume 8.2 fL (7.4-10.4); Platelet Count 242 thou/uL (130-400); RBC Distribution Width 12.7 % (11.5-14.5); Red Blood Cell (RBC) Count 4.51 mill/uL (4.20-5.40); White Blood Cell (WBC) Count 4.8 thou/uL (4.8-10.8)
[2022-08-25 11:00] LABS: INR-International Normal Ratio 2.9; PTT 47.6 sec (22.9-36.1); Prothrombin Time 30.7 sec (12.0-14.7)
[2022-08-25 11:04] LABS: ALT (SGPT) 17 U/L (8-55); AST (SGOT) 16 U/L (5-34); Albumin 3.3 g/dL (3.4-4.8); Alkaline Phosphatase 47 U/L (40-110); Anion Gap 12 mmol/L (10-20); BUN (Urea Nitrogen) 13 mg/dL (9.8-20.1); Bilirubin, Total 0.4 mg/dL (0.2-1.2); Calc. Creatinine Clearance 0 mL/min (70-130); Carbon Dioxide 28 mmol/L (23-31); Chloride 101 mmol/L (98-107); Estimated GFR 49; Globulin 2.9 g/dL (2.4-3.5); Glucose 167 mg/dL (83-110); Potassium 3.4 mmol/L (3.5-5.1); Protein, Total 6.2 g/dL (5.8-8.1); Sodium 138 mmol/L (136-145)
[2022-08-25 11:25] LABS: CKMB 3.6 ng/mL (0-6.6)
[2022-08-25] MEDS ORDERED: Magnesium 2 GM/50 ML BAG (IN WATER) ONE (11:27)
[2022-08-25] MEDS ORDERED: methylPREDNISolone Sod Succ/PF 125 MG/2 ML VIAL ONE (11:27)
[2022-08-25 11:31] LABS: Magnesium 1.6 mg/dL (1.6-2.6)
[2022-08-25] MEDS ORDERED: Senokot S 8.6-50 MG TAB PO PRN (12:59)
[2022-08-25] MEDS ORDERED: Ondansetron PF 4 MG/2 ML Vial IVP PRN (12:59)
[2022-08-25] MEDS ORDERED: Ondansetron ODT 4 MG TAB PO PRN (12:59)
[2022-08-25] MEDS ORDERED: Guaifenesin DM 100-10/5 ML UDCUP PO PRN (12:59)
[2022-08-25] MEDS ORDERED: Acetaminophen 650 MG Suppository PR PRN (12:59)
[2022-08-25] MEDS ORDERED: Albuterol Sulfate 2.5 mg/3 ml Neb EZPAP PRN (13:04)
[2022-08-25 13:30] LABS: SARS-CoV-2 NAA Rapid Test Not Detected (NotDetected)
[2022-08-25 13:55] VITALS: BMI 33.1
[2022-08-25 14:24] LABS: Troponin I 0.049 ng/mL (< 0.028)
[2022-08-25] MEDS ORDERED: Warfarin Sodium 1 MG TAB PO SCH (17:00)
[2022-08-25 17:03] LABS: Troponin I 0.032 ng/mL (< 0.028)
[2022-08-25] MEDS: methylPREDNISolone Sod Succ/PF 125 MG/2 ML VIAL IVP SCH ×2 (17:43→23:24)
[2022-08-25] MEDS: Acetaminophen 325 MG TAB PO PRN (17:56)
[2022-08-25] MEDS ORDERED: Dextrose 5% in Water 1,000 ML IV PRN (20:01)
[2022-08-25] MEDS ORDERED: Dextrose 50% Abboject 50 ML SYRINGE SLOW IVP PRN (20:01)
[2022-08-25] MEDS ORDERED: Bisacodyl 5 MG TAB PO PRN (20:02)
[2022-08-25 20:33] LABS: Magnesium 2.3 mg/dL (1.6-2.6)
[2022-08-25] MEDS: Atorvastatin Calcium 20 MG TAB PO SCH (22:08)
[2022-08-25] MEDS: NIFEdipine XL 30 MG TAB PO SCH (22:09)
[2022-08-25] MEDS: Docusate 100 MG CAP PO SCH (22:09)
[2022-08-25] MEDS: HumaLOG 300 UNITS/3 ML VIAL SC PRN (22:09)
[2022-08-26 05:26] LABS: #Lymphocytes 0.6 thou/uL (1.20-3.40); #Monocytes 0.1 thou/uL (0.11-0.59); %Eosinophils 0.1 % (0.0-10.0); %Lymphocytes 10.1 % (21.0-51.0); %Neutrophils 87.8 % (42.0-75.0); Hemoglobin 13.6 g/dL (12.0-16.0); Mean Corpuscular HGB CONC 32.1 g/dL (32.0-36.0); Mean Corpuscular Hemoglobin 29.4 pg (27.0-31.0); Mean Corpuscular Volume 91.3 fl (78.0-98.0); Mean Platelet Volume 8.5 fL (7.4-10.4); Platelet Count 286 thou/uL (130-400); Prothrombin Time 32.1 sec (12.0-14.7); RBC Distribution Width 12.6 % (11.5-14.5); Red Blood Cell (RBC) Count 4.64 mill/uL (4.20-5.40); White Blood Cell (WBC) Count 5.7 thou/uL (4.8-10.8)
[2022-08-26 05:40] LABS: Anion Gap 13 mmol/L (10-20); BUN (Urea Nitrogen) 19 mg/dL (9.8-20.1); Calc. Creatinine Clearance 42 mL/min (70-130); Carbon Dioxide 26 mmol/L (23-31); Chloride 100 mmol/L (98-107); Estimated GFR 40; Glucose 322 mg/dL (83-110); Potassium 4.3 mmol/L (3.5-5.1); Sodium 135 mmol/L (136-145)
[2022-08-26] MEDS: methylPREDNISolone Sod Succ/PF 125 MG/2 ML VIAL IVP SCH ×3 (05:45→21:33)
[2022-08-26] MEDS: Febuxostat 40 MG TAB PO SCH (09:03)
[2022-08-26] MEDS: Empagliflozin 25 MG TAB PO SCH (09:03)
[2022-08-26] MEDS: Aspirin Chewable 81 MG TAB PO SCH (09:03)
[2022-08-26] MEDS: NIFEdipine XL 30 MG TAB PO SCH ×2 (09:03→21:30)
[2022-08-26] MEDS: Calcitriol 0.25 MCG CAP PO SCH (09:03)
[2022-08-26] MEDS: Furosemide 20 MG TAB PO SCH (09:03)
[2022-08-26] MEDS: Magnesium Oxide 400 MG TAB PO SCH (09:03)
[2022-08-26] MEDS: Docusate 100 MG CAP PO SCH ×2 (09:03→21:32)
[2022-08-26] MEDS: Polyethylene Glycol 3350 17 GM Packet PO SCH (09:03)
[2022-08-26] MEDS: Acetaminophen 325 MG TAB PO PRN (11:46)
[2022-08-26] MEDS: HumaLOG 300 UNITS/3 ML VIAL SC PRN ×3 (11:47→21:38)
[2022-08-26] MEDS ORDERED: Warfarin Sodium 1 MG TAB PO SCH (17:00)
[2022-08-26] MEDS: Atorvastatin Calcium 20 MG TAB PO SCH (21:33)
[2022-08-27 04:52] LABS: #Lymphocytes 0.8 thou/uL (1.20-3.40); #Monocytes 0.4 thou/uL (0.11-0.59); #Neutrophils 10.9 thou/uL (1.40-6.50); %Basophils 0.1 % (0.0-1.0); %Eosinophils 0.2 % (0.0-10.0); %Lymphocytes 6.3 % (21.0-51.0); %Monocytes 3.2 % (0.0-10.0); %Neutrophils 90.1 % (42.0-75.0); Hemoglobin 11.8 g/dL (12.0-16.0); Mean Corpuscular HGB CONC 30.7 g/dL (32.0-36.0); Mean Corpuscular Hemoglobin 27.5 pg (27.0-31.0); Mean Corpuscular Volume 89.8 fl (78.0-98.0); Mean Platelet Volume 8.7 fL (7.4-10.4); Platelet Count 300 thou/uL (130-400); RBC Distribution Width 12.6 % (11.5-14.5); White Blood Cell (WBC) Count 12.1 thou/uL (4.8-10.8)
[2022-08-27 05:06] LABS: INR-International Normal Ratio 3.5; Prothrombin Time 35.7 sec (12.0-14.7)
[2022-08-27 05:07] LABS: Anion Gap 14 mmol/L (10-20); BUN (Urea Nitrogen) 29 mg/dL (9.8-20.1); Calc. Creatinine Clearance 40 mL/min (70-130); Calcium 8.7 mg/dL (7.8-10.44); Carbon Dioxide 25 mmol/L (23-31); Chloride 101 mmol/L (98-107); Estimated GFR 38; Glucose 279 mg/dL (83-110); Potassium 4.2 mmol/L (3.5-5.1); Sodium 136 mmol/L (136-145)
[2022-08-27] MEDS: HumaLOG 300 UNITS/3 ML VIAL SC PRN ×3 (05:43→17:04)
[2022-08-27] MEDS: Calcitriol 0.25 MCG CAP PO SCH (09:01)
[2022-08-27] MEDS: methylPREDNISolone Sod Succ/PF 125 MG/2 ML VIAL IVP SCH ×2 (09:01→20:25)
[2022-08-27] MEDS: Magnesium Oxide 400 MG TAB PO SCH (09:01)
[2022-08-27] MEDS: Aspirin Chewable 81 MG TAB PO SCH (09:01)
[2022-08-27] MEDS: Febuxostat 40 MG TAB PO SCH (09:01)
[2022-08-27] MEDS: Docusate 100 MG CAP PO SCH ×2 (09:01→20:25)
[2022-08-27] MEDS: Empagliflozin 25 MG TAB PO SCH (09:01)
[2022-08-27] MEDS: Furosemide 20 MG TAB PO SCH (09:01)
[2022-08-27] MEDS: NIFEdipine XL 30 MG TAB PO SCH ×2 (09:01→20:24)
[2022-08-27] MEDS: Polyethylene Glycol 3350 17 GM Packet PO SCH (09:02)
[2022-08-27] MEDS ORDERED: Warfarin Sodium 1 MG TAB PO SCH (13:45)
[2022-08-27] MEDS: Atorvastatin Calcium 20 MG TAB PO SCH (20:25)
[2022-08-27] MEDS: Nystatin 500,000 UNITS/5 ML UDCUP SSW SCH (20:25)
[2022-08-28 04:49] LABS: #Basophils 0.1 thou/uL (0.0-0.2); #Monocytes 0.5 thou/uL (0.11-0.59); #Neutrophils 7.7 thou/uL (1.40-6.50); %Basophils 0.7 % (0.0-1.0); %Eosinophils 0.2 % (0.0-10.0); %Lymphocytes 10.8 % (21.0-51.0); %Monocytes 5.2 % (0.0-10.0); %Neutrophils 83.1 % (42.0-75.0); Hemoglobin 13.9 g/dL (12.0-16.0); Mean Corpuscular HGB CONC 32.1 g/dL (32.0-36.0); Mean Corpuscular Volume 90.5 fl (78.0-98.0); Mean Platelet Volume 8.6 fL (7.4-10.4); Platelet Count 340 thou/uL (130-400); RBC Distribution Width 12.6 % (11.5-14.5); White Blood Cell (WBC) Count 9.3 thou/uL (4.8-10.8)
[2022-08-28 05:06] LABS: INR-International Normal Ratio 2.8; Prothrombin Time 30.5 sec (12.0-14.7)
[2022-08-28 05:18] LABS: Anion Gap 14 mmol/L (10-20); BUN (Urea Nitrogen) 31 mg/dL (9.8-20.1); Calc. Creatinine Clearance 46 mL/min (70-130); Calcium 9.2 mg/dL (7.8-10.44); Carbon Dioxide 24 mmol/L (23-31); Chloride 99 mmol/L (98-107); Estimated GFR 44; Glucose 237 mg/dL (83-110); Potassium 4.2 mmol/L (3.5-5.1); Sodium 133 mmol/L (136-145)
[2022-08-28] MEDS: HumaLOG 300 UNITS/3 ML VIAL SC PRN ×4 (06:33→20:49)
[2022-08-28] MEDS: NIFEdipine XL 30 MG TAB PO SCH ×2 (08:50→20:42)
[2022-08-28] MEDS: Nystatin 500,000 UNITS/5 ML UDCUP SSW SCH ×2 (08:50→20:45)
[2022-08-28] MEDS: Aspirin Chewable 81 MG TAB PO SCH (08:50)
[2022-08-28] MEDS: methylPREDNISolone Sod Succ/PF 125 MG/2 ML VIAL IVP SCH ×2 (08:50→20:42)
[2022-08-28] MEDS: Magnesium Oxide 400 MG TAB PO SCH (08:51)
[2022-08-28] MEDS: Furosemide 20 MG TAB PO SCH (08:51)
[2022-08-28] MEDS: Docusate 100 MG CAP PO SCH ×2 (08:51→20:42)
[2022-08-28] MEDS: Calcitriol 0.25 MCG CAP PO SCH (08:51)
[2022-08-28] MEDS: Empagliflozin 25 MG TAB PO SCH (08:51)
[2022-08-28] MEDS: Polyethylene Glycol 3350 17 GM Packet PO SCH (08:52)
[2022-08-28] MEDS: Febuxostat 40 MG TAB PO SCH (11:49)
[2022-08-28] MEDS ORDERED: Warfarin Sodium 0.5 MG HALF.TAB PO SCH (17:00)
[2022-08-28] MEDS: Warfarin Sodium 0.5 MG HALF.TAB PO SCH (17:50)
[2022-08-28] MEDS ORDERED: Melatonin 3 MG TAB PO PRN (19:21)
[2022-08-28] MEDS: Atorvastatin Calcium 20 MG TAB PO SCH (20:42)
[2022-08-29 05:14] LABS: #Lymphocytes 0.9 thou/uL (1.20-3.40); #Monocytes 0.4 thou/uL (0.11-0.59); #Neutrophils 6.1 thou/uL (1.40-6.50); %Eosinophils 0.3 % (0.0-10.0); %Lymphocytes 11.7 % (21.0-51.0); %Monocytes 4.8 % (0.0-10.0); %Neutrophils 83.3 % (42.0-75.0); Hemoglobin 12.5 g/dL (12.0-16.0); Mean Corpuscular HGB CONC 31.2 g/dL (32.0-36.0); Mean Corpuscular Hemoglobin 27.9 pg (27.0-31.0); Mean Corpuscular Volume 89.3 fl (78.0-98.0); Mean Platelet Volume 8.6 fL (7.4-10.4); Platelet Count 294 thou/uL (130-400); RBC Distribution Width 12.6 % (11.5-14.5); White Blood Cell (WBC) Count 7.3 thou/uL (4.8-10.8)
[2022-08-29 05:22] LABS: INR-International Normal Ratio 2.5; Prothrombin Time 28.3 sec (12.0-14.7)
[2022-08-29 05:42] LABS: Anion Gap 11 mmol/L (10-20); BUN (Urea Nitrogen) 34 mg/dL (9.8-20.1); Calc. Creatinine Clearance 46 mL/min (70-130); Calcium 8.3 mg/dL (7.8-10.44); Carbon Dioxide 25 mmol/L (23-31); Chloride 102 mmol/L (98-107); Estimated GFR 45; Glucose 313 mg/dL (83-110); Potassium 4.4 mmol/L (3.5-5.1); Sodium 134 mmol/L (136-145)
[2022-08-29] MEDS: HumaLOG 300 UNITS/3 ML VIAL SC PRN ×2 (06:46→17:42)
[2022-08-29] MEDS: Febuxostat 40 MG TAB PO SCH (09:18)
[2022-08-29] MEDS: Aspirin Chewable 81 MG TAB PO SCH (09:18)
[2022-08-29] MEDS: Empagliflozin 25 MG TAB PO SCH (09:18)
[2022-08-29] MEDS: Calcitriol 0.25 MCG CAP PO SCH (09:18)
[2022-08-29] MEDS: Docusate 100 MG CAP PO SCH ×2 (09:18→22:02)
[2022-08-29] MEDS: Furosemide 20 MG TAB PO SCH (09:19)
[2022-08-29] MEDS: methylPREDNISolone Sod Succ/PF 125 MG/2 ML VIAL IVP SCH ×2 (09:19→22:00)
[2022-08-29] MEDS: Magnesium Oxide 400 MG TAB PO SCH (09:19)
[2022-08-29] MEDS: NIFEdipine XL 30 MG TAB PO SCH ×2 (09:20→22:01)
[2022-08-29] MEDS: Nystatin 500,000 UNITS/5 ML UDCUP SSW SCH ×2 (09:20→22:01)
[2022-08-29] MEDS: Polyethylene Glycol 3350 17 GM Packet PO SCH (09:21)
[2022-08-29] MEDS ORDERED: Warfarin Sodium 1 MG TAB PO SCH ×2 (17:00)
[2022-08-29] MEDS: Atorvastatin Calcium 20 MG TAB PO SCH (22:02)
[2022-08-30 04:47] LABS: #Lymphocytes 0.8 thou/uL (1.20-3.40); #Monocytes 0.4 thou/uL (0.11-0.59); %Basophils 0.3 % (0.0-1.0); %Eosinophils 0.1 % (0.0-10.0); %Lymphocytes 11.3 % (21.0-51.0); %Monocytes 4.9 % (0.0-10.0); %Neutrophils 83.3 % (42.0-75.0); Hemoglobin 14.2 g/dL (12.0-16.0); Mean Corpuscular HGB CONC 32.4 g/dL (32.0-36.0); Mean Corpuscular Hemoglobin 29.1 pg (27.0-31.0); Mean Corpuscular Volume 89.9 fl (78.0-98.0); Mean Platelet Volume 8.5 fL (7.4-10.4); Platelet Count 299 thou/uL (130-400); RBC Distribution Width 12.5 % (11.5-14.5); Red Blood Cell (RBC) Count 4.88 mill/uL (4.20-5.40); White Blood Cell (WBC) Count 7.2 thou/uL (4.8-10.8)
[2022-08-30 04:56] LABS: INR-International Normal Ratio 2.5; Prothrombin Time 28.4 sec (12.0-14.7)
[2022-08-30 05:19] LABS: Anion Gap 13 mmol/L (10-20); BUN (Urea Nitrogen) 31 mg/dL (9.8-20.1); Calc. Creatinine Clearance 44 mL/min (70-130); Calcium 8.4 mg/dL (7.8-10.44); Carbon Dioxide 24 mmol/L (23-31); Chloride 101 mmol/L (98-107); Estimated GFR 43; Glucose 264 mg/dL (83-110); Potassium 4.7 mmol/L (3.5-5.1); Sodium 133 mmol/L (136-145)
[2022-08-30] MEDS: HumaLOG 300 UNITS/3 ML VIAL SC PRN ×3 (06:15→21:14)
[2022-08-30] MEDS: NIFEdipine XL 30 MG TAB PO SCH ×2 (10:16→21:16)
[2022-08-30] MEDS: Magnesium Oxide 400 MG TAB PO SCH (10:16)
[2022-08-30] MEDS: Aspirin Chewable 81 MG TAB PO SCH (10:16)
[2022-08-30] MEDS: methylPREDNISolone Sod Succ/PF 125 MG/2 ML VIAL IVP SCH ×2 (10:17→21:15)
[2022-08-30] MEDS: Nystatin 500,000 UNITS/5 ML UDCUP SSW SCH ×2 (10:17→21:14)
[2022-08-30] MEDS: Empagliflozin 25 MG TAB PO SCH (10:17)
[2022-08-30] MEDS: Docusate 100 MG CAP PO SCH ×2 (10:17→21:15)
[2022-08-30] MEDS: Calcitriol 0.25 MCG CAP PO SCH (10:17)
[2022-08-30] MEDS: Polyethylene Glycol 3350 17 GM Packet PO SCH (10:17)
[2022-08-30] MEDS: Furosemide 20 MG TAB PO SCH (10:17)
[2022-08-30] MEDS: Febuxostat 40 MG TAB PO SCH (10:23)
[2022-08-30] MEDS: Warfarin Sodium 0.5 MG HALF.TAB PO SCH (17:38)
[2022-08-30] MEDS: Atorvastatin Calcium 20 MG TAB PO SCH (21:16)
[2022-08-31] MEDS: HumaLOG 300 UNITS/3 ML VIAL SC PRN ×2 (06:16→11:35)
[2022-08-31] MEDS: Docusate 100 MG CAP PO SCH (09:23)
[2022-08-31] MEDS: Calcitriol 0.25 MCG CAP PO SCH (09:23)
[2022-08-31] MEDS: Empagliflozin 25 MG TAB PO SCH (09:24)
[2022-08-31] MEDS: Aspirin Chewable 81 MG TAB PO SCH (09:24)
[2022-08-31] MEDS: Febuxostat 40 MG TAB PO SCH (09:24)
[2022-08-31] MEDS: NIFEdipine XL 30 MG TAB PO SCH (09:24)
[2022-08-31] MEDS: Magnesium Oxide 400 MG TAB PO SCH (09:25)
[2022-08-31] MEDS: Furosemide 20 MG TAB PO SCH (09:28)
[2022-08-31] MEDS: Nystatin 500,000 UNITS/5 ML UDCUP SSW SCH (09:28)
[2022-08-31] MEDS: methylPREDNISolone Sod Succ/PF 125 MG/2 ML VIAL IVP SCH (09:28)
[2022-08-31] MEDS: Polyethylene Glycol 3350 17 GM Packet PO SCH (10:21)
[2022-08-31 11:55] VITALS: BP 122/70; TEMP 97.8
== END 2022-08-31 13:10 | disposition home or self-care (01) | DRG 189 ==
LOC: ERS 10:04 → 2NO 12:06
PROVIDERS: ADMIT Internal Medicine; ATTEND Student in an Organized Health Care Education/Training Program
DX: J96.21 Acute and chronic respiratory failure with hypoxia (principal); I21.A1 Myocardial infarction type 2; J44.1 Chronic obstructive pulmonary disease with (acute) exacerbation; I50.9 Heart failure, unspecified; E03.9 Hypothyroidism, unspecified; E11.9 Type 2 diabetes mellitus without complications; I11.0 Hypertensive heart disease with heart failure; E78.5 Hyperlipidemia, unspecified; K21.9 Gastro-esophageal reflux disease without esophagitis; Z20.822 Contact with and (suspected) exposure to COVID-19; I48.91 Unspecified atrial fibrillation; Z90.710 Acquired absence of both cervix and uterus; Z90.49 Acquired absence of other specified parts of digestive tract; Z98.890 Other specified postprocedural states; Z88.0 Allergy status to penicillin; Z91.013 Allergy to seafood; Z88.8 Allergy status to other drugs, medicaments and biological substances; Z79.01 Long term (current) use of anticoagulants; Z99.81 Dependence on supplemental oxygen; Z79.51 Long term (current) use of inhaled steroids; Z79.82 Long term (current) use of aspirin; Z79.899 Other long term (current) drug therapy
CPT/HCPCS: 36415; 36416; 71045; 80048; 80053; 82553; 83605; 83735; 83880; 84484; 85025; 85379; 85610; 85730; 87633; 93005; 94640; J1815; J2930; J3475; J7620

== ENCOUNTER 2022-09-11 11:41 | Outpatient (CLI) | payer MEDICARE | END 2022-09-11 11:42 | disposition home or self-care (01) | LOC: CT 11:41 → EDSTATUS 12:00 | PROVIDERS: ATTEND Surgery Vascular Surgery | DX: Z48.812 Encounter for surgical aftercare following surgery on the circulatory system (principal); Z98.890 Other specified postprocedural states; Z86.79 Personal history of other diseases of the circulatory system; M48.48XD Fatigue fracture of vertebra, sacral and sacrococcygeal region, subsequent encounter for fracture with routine healing; S32.10XD Unspecified fracture of sacrum, subsequent encounter for fracture with routine healing | CPT/HCPCS: 71250; 74177 ==

== ENCOUNTER 2022-10-31 10:14 | Outpatient (CLI) | payer MEDICARE | END 2022-10-31 10:15 | disposition home or self-care (01) | LOC: RAD 10:14 | PROVIDERS: ATTEND Internal Medicine Critical Care Medicine | DX: R06.00 Dyspnea, unspecified (principal) | CPT/HCPCS: 71046 ==

== ENCOUNTER 2023-01-23 15:00 | Inpatient (IN) | payer MEDICARE ==
[2023-01-28 12:27] VITALS: BMI 33.0
[2023-01-30] MEDS ORDERED: Clindamycin/D5W 900 mg/50 ml Premix Bag ONE (09:31)
[2023-01-30] MEDS ORDERED: Protamine Sulfate 50 MG/5 ML VIAL ONE (09:31)
[2023-01-30] MEDS ORDERED: Heparin 10,000 UNITS/ 10 ML VIAL ONE (09:31)
[2023-01-30 10:11] LABS: #Basophils 0.1 thou/uL (0.0-0.2); #Eosinphils 0.1 thou/uL (0.0-0.7); #Lymphocytes 2.6 thou/uL (1.20-3.40); #Monocytes 1.6 thou/uL (0.11-0.59); #Neutrophils 8.5 thou/uL (1.40-6.50); %Basophils 0.6 % (0.0-1.0); %Eosinophils 0.4 % (0.0-10.0); %Lymphocytes 20.1 % (21.0-51.0); %Monocytes 12.5 % (0.0-10.0); %Neutrophils 66.4 % (42.0-75.0); Hemoglobin 13.9 g/dL (12.0-16.0); Mean Corpuscular HGB CONC 32.9 g/dL (32.0-36.0); Mean Corpuscular Volume 88.2 fl (78.0-98.0); Mean Platelet Volume 8.1 fL (7.4-10.4); Platelet Count 327 10x3/uL (130-400); RBC Distribution Width 12.9 % (11.5-14.5); Red Blood Cell (RBC) Count 4.78 mill/uL (4.20-5.40); White Blood Cell (WBC) Count 12.7 10x3/uL (4.8-10.8)
== END 2023-01-30 10:18 | disposition home or self-care (01) | DRG 310 ==
LOC: SURG A 01-30 08:59
PROVIDERS: ADMIT Internal Medicine Cardiovascular Disease; ATTEND Internal Medicine Cardiovascular Disease
DX: I48.0 Paroxysmal atrial fibrillation (principal); N18.9 Chronic kidney disease, unspecified; E11.22 Type 2 diabetes mellitus with diabetic chronic kidney disease; M10.9 Gout, unspecified; E78.5 Hyperlipidemia, unspecified; J44.9 Chronic obstructive pulmonary disease, unspecified; I12.9 Hypertensive chronic kidney disease with stage 1 through stage 4 chronic kidney disease, or unspecified chronic kidney disease; E05.90 Thyrotoxicosis, unspecified without thyrotoxic crisis or storm; Z98.890 Other specified postprocedural states; Z86.73 Personal history of transient ischemic attack (TIA), and cerebral infarction without residual deficits; Z79.01 Long term (current) use of anticoagulants; Z87.81 Personal history of (healed) traumatic fracture; Z87.01 Personal history of pneumonia (recurrent); Z91.81 History of falling; Z86.79 Personal history of other diseases of the circulatory system; Z79.51 Long term (current) use of inhaled steroids; Z79.899 Other long term (current) drug therapy; Z79.2 Long term (current) use of antibiotics; Z79.84 Long term (current) use of oral hypoglycemic drugs; Z79.1 Long term (current) use of non-steroidal anti-inflammatories (NSAID); Z79.891 Long term (current) use of opiate analgesic; Z91.040 Latex allergy status; Z88.0 Allergy status to penicillin; Z91.013 Allergy to seafood; Z91.018 Allergy to other foods; Z88.8 Allergy status to other drugs, medicaments and biological substances; Z90.49 Acquired absence of other specified parts of digestive tract; Z90.710 Acquired absence of both cervix and uterus; Z98.49 Cataract extraction status, unspecified eye
CPT/HCPCS: 85025; 86850; 86900; 86901; J1644; J2720; J3490

== ENCOUNTER 2023-01-23 15:18 | Outpatient (CLI) | payer MEDICARE ==
[2023-01-23 16:35] LABS: Hemoglobin 12.4 g/dL (12.0-15.5); Mean Corpuscular Hemoglobin 27.6 pg (27.0-33.0); Mean Corpuscular Volume 86.2 fl (81.6-98.3); Mean Platelet Volume 10.7 fl (7.4-10.4); Platelet Count 257 10x3/uL (150-450); RBC Distribution Width 13.2 % (11.5-14.5); White Blood Cell (WBC) Count 8.7 10x3/uL (3.5-10.5)
[2023-01-23 16:47] LABS: Bilirubin Neg (Negative); Blood, Urine 10 (Negative); Clarity Cloudy (Clear); Glucose, Urine (Dipstick) Normal (Negative); Ketone, Urine Negative (Negative); Leukocyte 500 (Negative); Nitrite Negative (Negative); Protein, Urine (Dipstick) 30 mg/dl (Neg-Trace); Urobilinogen Normal mg/dL (Less than 2)
[2023-01-23 16:55] LABS: INR-International Normal Ratio 1.5; PTT 32.4 sec (22.0-33.0)
[2023-01-23 17:03] LABS: ALT (SGPT) 8 U/L (8-55); AST (SGOT) 15 U/L (5-34); Albumin 3.7 g/dL (3.4-4.8); Alkaline Phosphatase 40 U/L (40-110); Anion Gap 15 mmol/L (10-20); BUN (Urea Nitrogen) 21 mg/dL (9.8-20.1); Bilirubin, Total 0.2 mg/dL (0.2-1.2); Calc. Creatinine Clearance 0 mL/min (70-130); Calcium 9.1 mg/dL (7.8-10.44); Carbon Dioxide 25 mmol/L (23-31); Chloride 95 mmol/L (98-107); Estimated GFR 30; Globulin 2.9 g/dL (2.4-3.5); Glucose 135 mg/dL (83-110); Potassium 4.8 mmol/L (3.5-5.1); Protein, Total 6.6 g/dL (5.8-8.1); Sodium 130 mmol/L (136-145)
== END 2023-01-23 15:19 | disposition home or self-care (01) ==
LOC: LABBT 15:18
PROVIDERS: ATTEND Internal Medicine Cardiovascular Disease
DX: Z01.818 Encounter for other preprocedural examination (principal); I48.0 Paroxysmal atrial fibrillation
CPT/HCPCS: 80053; 81003; 85027; 85610; 85730; 93005; 93010

== ENCOUNTER 2023-04-12 13:30 | Inpatient (IN) | payer MEDICARE ==
[2023-04-12 14:27] VITALS: BMI 35.2
[2023-04-12 14:59] LABS: INR-International Normal Ratio 1.6; PTT 32.4 sec (22.0-33.0); Prothrombin Time 17.5 sec (9.5-12.1)
[2023-04-12 15:04] LABS: ALT (SGPT) 16 U/L (8-55); AST (SGOT) 13 U/L (5-34); Albumin 3.3 g/dL (3.4-4.8); Alkaline Phosphatase 37 U/L (40-110); Anion Gap 14 mmol/L (10-20); BUN (Urea Nitrogen) 19 mg/dL (9.8-20.1); Bilirubin, Total 0.4 mg/dL (0.2-1.2); Calc. Creatinine Clearance 38 mL/min (70-130); Calcium 8.1 mg/dL (7.8-10.44); Carbon Dioxide 24 mmol/L (23-31); Chloride 103 mmol/L (98-107); Estimated GFR 37; Globulin 2.1 g/dL (2.4-3.5); Glucose 177 mg/dL (83-110); Potassium 4.2 mmol/L (3.5-5.1); Protein, Total 5.4 g/dL (5.8-8.1); Sodium 137 mmol/L (136-145)
[2023-04-12 15:53] LABS: Hemoglobin 10.3 g/dL (12.0-15.5); Mean Corpuscular HGB CONC 30.2 g/dL (32.0-36.0); Mean Corpuscular Volume 89.5 fl (81.6-98.3); Mean Platelet Volume 11.3 fl (7.4-10.4); Platelet Count 151 10x3/uL (150-450); RBC Distribution Width 14.3 % (11.5-14.5); Red Blood Cell (RBC) Count 3.81 10x6/uL (3.90-5.03); White Blood Cell (WBC) Count 5.8 10x3/uL (3.5-10.5)
[2023-04-12 15:57] LABS: Bilirubin 1+ (Negative); Blood, Urine 10 (Negative); Clarity Clear (Clear); Glucose, Urine (Dipstick) Normal (Negative); Ketone, Urine Negative (Negative); Leukocyte 25 (Negative); Nitrite Positive (Negative); Protein, Urine (Dipstick) 15 mg/dl (Neg-Trace); Specific Gravity, Urine 1.025 (1.005-1.030)
[2023-04-17] MEDS ORDERED: Iopamidol 370 76% 100 ML VIAL ONE (12:19)
[2023-04-17] MEDS ORDERED: fentaNYL 50 mcg/mL 1 mL Vial ONE (12:39)
[2023-04-17] MEDS ORDERED: SUGAMMADEX SODIUM 200 MG/2 ML VIAL ONE (12:39)
[2023-04-17] MEDS ORDERED: Ciprofloxacin Lactate/D5W 400 mg/200 ml Premix ONE (12:53)
[2023-04-17] MEDS ORDERED: Ondansetron PF 4 MG/2 ML Vial ONE (13:14)
[2023-04-17] MEDS ORDERED: Rocuronium Bromide 10 MG/ML (10ML VIAL) ONE (13:14)
[2023-04-17] MEDS ORDERED: PROPOFOL 200 MG/20 ML VIAL ONE (13:14)
[2023-04-17] MEDS ORDERED: Protamine Sulfate 50 MG/5 ML VIAL ONE ×2 (14:20→14:43)
[2023-04-17] MEDS ORDERED: Heparin 10,000 UNITS/ 10 ML VIAL ONE (14:43)
[2023-04-17] MEDS ORDERED: Clindamycin/D5W 900 mg/50 ml Premix Bag ONE (14:43)
== END 2023-04-17 17:40 | disposition home or self-care (01) | DRG 274 ==
LOC: SURG A 04-17 11:23
PROVIDERS: ADMIT Internal Medicine Cardiovascular Disease; ATTEND Internal Medicine Cardiovascular Disease
PROC: B24BZZ4 Ultrasonography of Heart with Aorta, Transesophageal (ICD-10-PCS; principal; 2023-04-17)
PROC: 02L73DK Occlusion of Left Atrial Appendage with Intraluminal Device, Percutaneous Approach (ICD-10-PCS; 2023-04-17)
DX: I48.0 Paroxysmal atrial fibrillation (principal); I48.19 Other persistent atrial fibrillation; Z79.01 Long term (current) use of anticoagulants; Z91.013 Allergy to seafood; Z91.041 Radiographic dye allergy status; Z91.040 Latex allergy status; Z88.0 Allergy status to penicillin; Z88.8 Allergy status to other drugs, medicaments and biological substances; Z79.899 Other long term (current) drug therapy; Z79.51 Long term (current) use of inhaled steroids; Z86.72 Personal history of thrombophlebitis
CPT/HCPCS: 33340; 80053; 81003; 85027; 85347; 85610; 85730; 86850; 86900; 86901; 93005; 93010; 93312; C1759; C1760; C1769; C1894; J0744; J1644; J2405; J2704; J2720; J3010; J3490; Q9967

== ENCOUNTER 2023-05-29 06:14 | Day surgery (SDC) | payer MEDICARE ==
[2023-05-20 14:48] VITALS: BMI 35.9
[2023-05-20 15:02] LABS: Hemoglobin 10.3 g/dL (12.0-15.5); Mean Corpuscular HGB CONC 31.5 g/dL (32.0-36.0); Mean Corpuscular Hemoglobin 27.4 pg (27.0-33.0); Mean Platelet Volume 10.2 fl (7.4-10.4); Platelet Count 237 10x3/uL (150-450); RBC Distribution Width 14.6 % (11.5-14.5); Red Blood Cell (RBC) Count 3.76 10x6/uL (3.90-5.03); White Blood Cell (WBC) Count 5.1 10x3/uL (3.5-10.5)
[2023-05-20 15:43] LABS: Anion Gap 16 mmol/L (10-20); BUN (Urea Nitrogen) 30 mg/dL (9.8-20.1); Calc. Creatinine Clearance 23 mL/min (70-130); Calcium 8.1 mg/dL (7.8-10.44); Carbon Dioxide 20 mmol/L (23-31); Chloride 102 mmol/L (98-107); Estimated GFR 19; Glucose 154 mg/dL (83-110); Potassium 4.3 mmol/L (3.5-5.1); Sodium 134 mmol/L (136-145)
[2023-05-29 07:39] LABS: Anion Gap 12 mmol/L (10-20); BUN (Urea Nitrogen) 22 mg/dL (9.8-20.1); Calc. Creatinine Clearance 35 mL/min (70-130); Calcium 8.7 mg/dL (7.8-10.44); Carbon Dioxide 23 mmol/L (23-31); Chloride 103 mmol/L (98-107); Estimated GFR 32; Glucose 93 mg/dL (83-110); Potassium 4.5 mmol/L (3.5-5.1); Sodium 133 mmol/L (136-145)
[2023-05-29] MEDS ORDERED: fentaNYL 50 mcg/mL 1 mL Vial ONE (07:55)
[2023-05-29] MEDS ORDERED: PROPOFOL 20 ML ONE (07:56)
[2023-05-29] MEDS ORDERED: PROPOFOL 200 MG/20 ML VIAL ONE (08:03)
== END 2023-05-29 09:24 | disposition home or self-care (01) ==
LOC: SDC 06:14
PROVIDERS: ATTEND Internal Medicine Cardiovascular Disease
DX: I48.0 Paroxysmal atrial fibrillation (principal); I49.9 Cardiac arrhythmia, unspecified; J44.9 Chronic obstructive pulmonary disease, unspecified; I12.9 Hypertensive chronic kidney disease with stage 1 through stage 4 chronic kidney disease, or unspecified chronic kidney disease; N18.9 Chronic kidney disease, unspecified; J45.909 Unspecified asthma, uncomplicated; E11.9 Type 2 diabetes mellitus without complications; M10.9 Gout, unspecified; E03.9 Hypothyroidism, unspecified; E78.5 Hyperlipidemia, unspecified; Z79.899 Other long term (current) drug therapy; Z79.01 Long term (current) use of anticoagulants; Z90.89 Acquired absence of other organs; Z86.73 Personal history of transient ischemic attack (TIA), and cerebral infarction without residual deficits; Z86.79 Personal history of other diseases of the circulatory system; Z91.041 Radiographic dye allergy status; Z90.710 Acquired absence of both cervix and uterus; Z91.040 Latex allergy status; Z91.013 Allergy to seafood; Z91.018 Allergy to other foods; Z88.8 Allergy status to other drugs, medicaments and biological substances; Z88.0 Allergy status to penicillin
CPT/HCPCS: 80048 ×2; 85027; 93312; J3010; 36415; J2704

== ENCOUNTER 2023-06-27 07:22 | Emergency (ER) | payer MEDICARE ==
[2023-06-27 07:51] LABS: #Basophils 0.1 thou/uL (0.0-0.2); #Eosinphils 0.5 thou/uL (0.0-0.7); #Monocytes 1.2 thou/uL (0.11-0.59); #Neutrophils 6.1 thou/uL (1.40-6.50); %Basophils 0.6 % (0.0-1.0); %Eosinophils 5.5 % (0.0-10.0); %Monocytes 12.3 % (0.0-10.0); %Neutrophils 63.4 % (42.0-75.0); Hematocrit 34.4 % (36.0-47.0); Hemoglobin 10.9 g/dL (12.0-16.0); Mean Corpuscular HGB CONC 31.7 g/dL (32.0-36.0); Mean Corpuscular Hemoglobin 27.2 pg (27.0-31.0); Mean Corpuscular Volume 85.8 fl (78.0-98.0); Mean Platelet Volume 10.8 fL (7.4-10.4); Platelet Count 249 10x3/uL (130-400); RBC Distribution Width 13.7 % (11.5-14.5); Red Blood Cell (RBC) Count 4.01 mill/uL (4.20-5.40); White Blood Cell (WBC) Count 9.6 10x3/uL (4.8-10.8)
[2023-06-27 08:05] LABS: INR-International Normal Ratio 1.1; PTT 27.8 sec (22.9-36.1); Prothrombin Time 14.1 sec (12.0-14.7)
[2023-06-27 08:31] LABS: ALT (SGPT) 7 U/L (8-55); AST (SGOT) 12 U/L (5-34); Albumin 3.8 g/dL (3.4-4.8); Alkaline Phosphatase 42 U/L (40-110); Anion Gap 11 mmol/L (10-20); BUN (Urea Nitrogen) 26 mg/dL (9.8-20.1); Bilirubin, Total 0.3 mg/dL (0.2-1.2); Calc. Creatinine Clearance 0 mL/min (70-130); Calcium 9.4 mg/dL (7.8-10.44); Carbon Dioxide 23 mmol/L (23-31); Chloride 97 mmol/L (98-107); Estimated GFR 27; Glucose 133 mg/dL (83-110); Potassium 4.1 mmol/L (3.5-5.1); Protein, Total 6.8 g/dL (5.8-8.1); Sodium 127 mmol/L (136-145)
[2023-06-27 08:33] LABS: Troponin I Less than 0.010 ng/mL (< 0.028)
[2023-06-27 08:46] LABS: Bacteria/HPF None Seen HPF (None Seen); Bilirubin Negative (Negative); Blood, Urine Negative (Negative); CAUTI Indications for Culture Dysuria,urgency,freq; Clarity Clear (Clear); Glucose, Urine (Dipstick) Normal (Negative); Ketone, Urine Negative (Negative); Leukocyte Negative Leu/uL (Negative); Nitrite Negative (Negative); Protein, Urine (Dipstick) Negative (Neg-Trace); RBC/HPF 0-3 HPF (0-3); Specific Gravity, Urine 1.015 (1.002-1.036); Squamous Epithelial None Seen HPF (0-3); Urobilinogen Normal mg/dL (Less than 2); WBC/HPF 0-3 HPF (0-3); pH, Urine 5.5 (5.0-9.0)
[2023-06-27 08:48] LABS: Urine Culture Reflex No No
[2023-06-27 10:27] LABS: Troponin I Less than 0.010 ng/mL (< 0.028)
== END 2023-06-27 11:36 | disposition home or self-care (01) ==
LOC: ERS 07:22
DX: R55 Syncope and collapse (principal); I48.91 Unspecified atrial fibrillation; I11.0 Hypertensive heart disease with heart failure; I50.9 Heart failure, unspecified; J44.9 Chronic obstructive pulmonary disease, unspecified; E03.9 Hypothyroidism, unspecified; E11.9 Type 2 diabetes mellitus without complications; Z79.82 Long term (current) use of aspirin; Z79.899 Other long term (current) drug therapy
CPT/HCPCS: 36415; 71045; 80053; 81001; 83880; 84484; 85025; 85610; 85730; 93005

== ENCOUNTER 2023-09-12 12:45 | Outpatient (CLI) | payer MEDICARE | END 2023-09-12 12:46 | disposition home or self-care (01) | LOC: CT 12:45 | PROVIDERS: ATTEND Psychiatry & Neurology Neurology | DX: G62.9 Polyneuropathy, unspecified (principal); M51.36 Other intervertebral disc degeneration, lumbar region; M51.37 Other intervertebral disc degeneration, lumbosacral region | CPT/HCPCS: 72131 ==

== ENCOUNTER 2023-11-11 12:39 | Outpatient (CLI) | payer MEDICARE | END 2023-11-11 12:40 | disposition home or self-care (01) | LOC: CT 12:39 | PROVIDERS: ATTEND Surgery Vascular Surgery | DX: I71.20 Thoracic aortic aneurysm, without rupture, unspecified (principal); Z98.890 Other specified postprocedural states | CPT/HCPCS: 71250 ==

== ENCOUNTER 2024-03-04 17:41 | Observation (INO) | payer MEDICARE ==
[2024-03-04] MEDS ORDERED: Ondansetron PF 4 MG/2 ML Vial ONE (19:08)
[2024-03-04 19:13] LABS: #Basophils 0.04 10x3/uL (0.0-0.2); %Basophils 0.3 % (0.0-1.0); %Eosinophils 2.3 % (0.0-10.0); %Lymphocytes 14.5 % (21.0-51.0); %Monocytes 9.1 % (0.0-10.0); %Neutrophils 73.3 % (42.0-75.0); Hematocrit 35.3 % (36.0-47.0); Hemoglobin 10.6 g/dL (12.0-16.0); Mean Corpuscular Hemoglobin 25.9 pg (27.0-31.0); Mean Corpuscular Volume 86.3 fL (78.0-98.0); Mean Platelet Volume 10.2 fL (7.4-10.4); Platelet Count 310 10x3/uL (130-400); RBC Distribution Width 15.4 % (11.5-14.5); Red Blood Cell (RBC) Count 4.09 mill/uL (4.20-5.40)
[2024-03-04 19:37] LABS: PTT 27.1 sec (22.9-36.1); Prothrombin Time 13.2 sec (12.0-14.7)
[2024-03-04 19:53] LABS: Globulin 3.3 g/dL (2.4-3.5)
[2024-03-04 19:57] LABS: ALT (SGPT) 13 U/L (8-55); AST (SGOT) 14 U/L (5-34); Albumin 3.2 g/dL (3.4-4.8); Alkaline Phosphatase 44 U/L (40-110); Anion Gap 16 mmol/L (10-20); BUN (Urea Nitrogen) 23 mg/dL (9.8-20.1); Bilirubin, Total 0.3 mg/dL (0.2-1.2); Calc. Creatinine Clearance 0 mL/min (70-130); Calcium 8.9 mg/dL (7.8-10.44); Carbon Dioxide 26 mmol/L (23-31); Chloride 99 mmol/L (98-107); Estimated GFR 23; Glucose 127 mg/dL (83-110); Lipase 34 U/L (8-78); Magnesium 1.2 mg/dL (1.6-2.6); Potassium 4.5 mmol/L (3.5-5.1); Protein, Total 6.5 g/dL (5.8-8.1); Sodium 136 mmol/L (136-145)
[2024-03-04] MEDS ORDERED: diphenhydrAMINE 50 MG/ML VIAL ONE (20:16)
[2024-03-04] MEDS ORDERED: Famotidine/PF 20 mg/2ml Vial ONE (20:16)
[2024-03-04] MEDS ORDERED: methylPREDNISolone Sod Succ 40 MG VIAL ONE (20:16)
[2024-03-04 20:36] LABS: Troponin I 0.013 ng/mL (< 0.028)
[2024-03-04 23:25] LABS: Bacteria/HPF None Seen HPF (None Seen); Bilirubin Negative (Negative); Blood, Urine Negative (Negative); CAUTI Indications for Culture Alt mental st,lethar; Clarity Clear (Clear); Glucose, Urine (Dipstick) Normal (Negative); Ketone, Urine Negative (Negative); Leukocyte Negative Leu/uL (Negative); Nitrite Negative (Negative); Protein, Urine (Dipstick) Negative (Neg-Trace); RBC/HPF 0-3 HPF (0-3); Specific Gravity, Urine 1.012 (1.002-1.036); Urobilinogen Normal mg/dL (Less than 2); WBC/HPF 0-3 HPF (0-3)
[2024-03-04 23:30] LABS: Urine Culture Reflex No No
[2024-03-05] MEDS ORDERED: Ondansetron ODT 4 MG TAB PO PRN (00:34)
[2024-03-05] MEDS ORDERED: Acetaminophen 650 MG Suppository PR PRN (00:34)
[2024-03-05 00:49] VITALS: BMI 37.4
[2024-03-05] MEDS ORDERED: Magnesium 2 GM/50 ML BAG (IN WATER) ONE (01:01)
[2024-03-05] MEDS: Sodium Chloride 0.9% 1,000 ML IV SCH (01:06)
[2024-03-05] MEDS: Magnesium 2 GM/50 ML(in water) 2 GM in Premix 1 BAG IVPB SCH (01:08)
[2024-03-05] MEDS ORDERED: Montelukast Sodium 10 mg Tablet PO PRN (01:38)
[2024-03-05] MEDS ORDERED: Acetaminophen 325 MG TAB ONE (03:51)
[2024-03-05] MEDS: Acetaminophen 325 MG TAB PO PRN (03:53)
[2024-03-05 06:22] LABS: #Basophils Less than 0.03 10x3/uL (0.0-0.2); #Eosinphils Less than 0.03 10x3/uL (0.0-0.7); %Basophils 0.2 % (0.0-1.0); %Eosinophils 0.1 % (0.0-10.0); %Lymphocytes 8.3 % (21.0-51.0); %Monocytes 1.1 % (0.0-10.0); %Neutrophils 89.4 % (42.0-75.0); Hemoglobin 10.1 g/dL (12.0-16.0); Mean Corpuscular HGB CONC 29.7 g/dL (32.0-36.0); Mean Corpuscular Volume 87.6 fL (78.0-98.0); Mean Platelet Volume 10.7 fL (7.4-10.4); Platelet Count 256 10x3/uL (130-400); RBC Distribution Width 15.2 % (11.5-14.5); Red Blood Cell (RBC) Count 3.88 mill/uL (4.20-5.40)
[2024-03-05 06:42] LABS: Anion Gap 15 mmol/L (10-20); BUN (Urea Nitrogen) 26 mg/dL (9.8-20.1); Calc. Creatinine Clearance 33 mL/min (70-130); Calcium 8.5 mg/dL (7.8-10.44); Carbon Dioxide 25 mmol/L (23-31); Chloride 102 mmol/L (98-107); Estimated GFR 28; Glucose 218 mg/dL (83-110); Magnesium 1.8 mg/dL (1.6-2.6); Sodium 137 mmol/L (136-145)
[2024-03-05] MEDS ORDERED: Budesonide 0.5 MG/2 ML NEB ONE (07:02)
[2024-03-05] MEDS ORDERED: Pantoprazole DR 40 MG TAB ONE (07:56)
[2024-03-05] MEDS ORDERED: Aspirin Chewable 81 MG TAB ONE (07:56)
[2024-03-05] MEDS ORDERED: Famotidine 20 MG TAB ONE (07:57)
[2024-03-05] MEDS: Budesonide 0.25 MG/2 ML NEB NEB SCH (08:53)
[2024-03-05] MEDS: Famotidine 20 MG TAB PO SCH (08:53)
[2024-03-05] MEDS: Aspirin 81 mg Enteric Coated Tablet PO SCH (08:53)
[2024-03-05] MEDS: Thyroid 30 MG TAB PO SCH (08:53)
[2024-03-05] MEDS: Pantoprazole DR 40 MG TAB PO SCH (08:53)
[2024-03-05] MEDS: Docusate 100 MG CAP PO SCH (08:53)
[2024-03-05 11:51] LABS: Actual Bicarbonate (HCO3v) 26.1 mEq/L (22-28); Analyzer IN Cardio OR; Base Excess -1.1 mEq/L (-2.0 to +3.0); Calcium, Ionized (venous) 1.07 mmol/L (1.16-1.32); Chloride (VBG) 100 mmol/L (98-106); Hematocrit-VBG 33 % (36.0-47.0); Hemoglobin (Hb) 11.3 g/dL (11.7-16.1); Potassium (VBG) 4.43 mmol/L (3.70-5.30); Sodium 136 mmol/L (133-146); pH (venous) 7.291 (7.32-7.43)
[2024-03-05 12:02] LABS: Troponin I Less than 0.010 ng/mL (< 0.028)
[2024-03-05] MEDS ORDERED: Ipratropium/Albuterol 3 ML NEB ONE (12:34)
[2024-03-05] MEDS: Ipratropium/Albuterol 3 ML NEB NEB PRN (12:35)
[2024-03-05] MEDS: hydrALAZINE 25 MG TAB PO SCH (18:38)
[2024-03-05] MEDS ORDERED: Sacubitril 24MG/Valsartan 26 MG TAB PO SCH (21:00)
[2024-03-05] MEDS: Doxycycline 100 MG CAP PO SCH (21:06)
[2024-03-05] MEDS: Atorvastatin Calcium 20 MG TAB PO SCH (21:06)
[2024-03-05] MEDS: Gabapentin 100 MG CAP PO SCH (21:07)
[2024-03-05] MEDS: traMADol HCl 50 MG TAB PO PRN (21:09)
[2024-03-06] MEDS: Calcitriol 0.25 MCG CAP PO SCH (09:48)
[2024-03-06] MEDS: Febuxostat 40 MG TAB PO SCH (09:49)
[2024-03-06 12:50] VITALS: BP 132/80; TEMP 97.2
== END 2024-03-06 14:00 | disposition home or self-care (01) ==
LOC: ERS 17:41 → ERHOLD 03-05 00:12 → 2NO 03-05 15:03
PROVIDERS: ADMIT Internal Medicine; ATTEND Internal Medicine
DX: N17.9 Acute kidney failure, unspecified (principal); J44.9 Chronic obstructive pulmonary disease, unspecified; J96.11 Chronic respiratory failure with hypoxia; E78.5 Hyperlipidemia, unspecified; E03.9 Hypothyroidism, unspecified; I48.0 Paroxysmal atrial fibrillation; E11.22 Type 2 diabetes mellitus with diabetic chronic kidney disease; I13.0 Hypertensive heart and chronic kidney disease with heart failure and stage 1 through stage 4 chronic kidney disease, or unspecified chronic kidney disease; I50.32 Chronic diastolic (congestive) heart failure; N18.32 Chronic kidney disease, stage 3b; K21.9 Gastro-esophageal reflux disease without esophagitis; D64.9 Anemia, unspecified; E66.9 Obesity, unspecified; Z68.37 Body mass index [BMI] 37.0-37.9, adult; Z91.041 Radiographic dye allergy status; Z91.013 Allergy to seafood; Z88.0 Allergy status to penicillin; Z91.040 Latex allergy status; Z91.018 Allergy to other foods; Z79.899 Other long term (current) drug therapy; Z79.82 Long term (current) use of aspirin; Z79.890 Hormone replacement therapy; W19.XXXA Unspecified fall, initial encounter
CPT/HCPCS: 36415; 36416; 70450; 71045; 71250; 72125; 80048; 80053; 81001; 82306; 82805; 83605; 83690; 83735; 83880; 84443; 84484; 85025; 85610; 85730; 87040; 93005; 93970; 94640; 96361; 96374; 96375; G0378; J1200; J2405; J2920; J3475; J7050; J7620; J7626; S0028

== ENCOUNTER 2024-03-28 22:36 | Inpatient (IN) | payer MEDICARE ==
[2024-03-28 23:40] LABS: #Basophils 0.04 10x3/uL (0.0-0.2); %Basophils 0.5 % (0.0-1.0); %Eosinophils 2.8 % (0.0-10.0); %Lymphocytes 18.7 % (21.0-51.0); %Monocytes 14.1 % (0.0-10.0); %Neutrophils 63.7 % (42.0-75.0); Hematocrit 33.3 % (36.0-47.0); Hemoglobin 10.3 g/dL (12.0-16.0); Mean Corpuscular HGB CONC 30.9 g/dL (32.0-36.0); Mean Corpuscular Hemoglobin 24.8 pg (27.0-31.0); Mean Platelet Volume 10.7 fL (7.4-10.4); Platelet Count 301 10x3/uL (130-400); RBC Distribution Width 14.9 % (11.5-14.5); Red Blood Cell (RBC) Count 4.16 mill/uL (4.20-5.40)
[2024-03-28] MEDS ORDERED: Ondansetron PF 4 MG/2 ML Vial ONE (23:48)
[2024-03-28 23:58] LABS: ALT (SGPT) 7 U/L (8-55); AST (SGOT) 17 U/L (5-34); Albumin 3.5 g/dL (3.4-4.8); Alkaline Phosphatase 59 U/L (40-110); Anion Gap 18 mmol/L (10-20); BUN (Urea Nitrogen) 30 mg/dL (9.8-20.1); Bilirubin, Total 0.2 mg/dL (0.2-1.2); Calc. Creatinine Clearance 0 mL/min (70-130); Calcium 8.8 mg/dL (7.8-10.44); Carbon Dioxide 23 mmol/L (23-31); Chloride 91 mmol/L (98-107); Estimated GFR 16; Globulin 3.4 g/dL (2.4-3.5); Glucose 148 mg/dL (83-110); Potassium 4.1 mmol/L (3.5-5.1); Protein, Total 6.9 g/dL (5.8-8.1); Sodium 128 mmol/L (136-145)
[2024-03-29 00:37] LABS: Bacteria/HPF 1+ HPF (None Seen); Bilirubin Negative (Negative); Blood, Urine Negative (Negative); CAUTI Indications for Culture Pelvic or flank pain; Clarity Clear (Clear); Glucose, Urine (Dipstick) Normal (Negative); Ketone, Urine Negative (Negative); Leukocyte Negative Leu/uL (Negative); Nitrite Negative (Negative); Protein, Urine (Dipstick) Negative (Neg-Trace); RBC/HPF 0-3 HPF (0-3); Specific Gravity, Urine 1.016 (1.002-1.036); Squamous Epithelial 0-3 HPF (0-3); Urobilinogen Normal mg/dL (Less than 2)
[2024-03-29 00:38] LABS: Urine Culture Reflex No No
[2024-03-29] MEDS ORDERED: cefTRIAXone (ROCEPHIN) 1 GM VIAL ONE (01:32)
[2024-03-29] MEDS ORDERED: Non-Formulary Item 1 EACH (Fluticasone/Vilanterol [Breo Ellipta 200-25 Mcg Inhalr] 1 EACH INH PRN (03:19)
[2024-03-29] MEDS ORDERED: Ipratropium/Albuterol 3 ML NEB NEB PRN (03:19)
[2024-03-29] MEDS ORDERED: Montelukast Sodium 10 mg Tablet PO PRN (03:19)
[2024-03-29] MEDS ORDERED: Acetaminophen 325 MG TAB PO PRN (03:21)
[2024-03-29] MEDS ORDERED: Ondansetron ODT 4 MG TAB PO PRN (03:21)
[2024-03-29] MEDS: Sodium Chloride 0.9% 1,000 ML IV SCH (04:52)
[2024-03-29 05:04] VITALS: BMI 39.1
[2024-03-29] MEDS ORDERED: Albuterol 200 PUFF INH INH PRN (05:22)
[2024-03-29] MEDS ORDERED: Albuterol 200 PUFF (6.7GM INHALER) INH SCH ×2 (09:00)
[2024-03-29] MEDS: Famotidine/PF 20 mg/2ml Vial SLOW IVP SCH (09:47)
[2024-03-29] MEDS: Famotidine 20 MG TAB PO SCH (09:47)
[2024-03-29] MEDS: Febuxostat 40 MG TAB PO SCH (10:06)
[2024-03-29] MEDS: Ondansetron PF 4 MG/2 ML Vial IVP PRN (15:43)
[2024-03-29] MEDS: Senokot S 8.6-50 MG TAB PO SCH (21:31)
[2024-03-29] MEDS: Atorvastatin Calcium 20 MG TAB PO SCH (21:31)
[2024-03-30 06:35] LABS: #Basophils 0.05 10x3/uL (0.0-0.2); %Basophils 0.8 % (0.0-1.0); %Eosinophils 4.5 % (0.0-10.0); %Lymphocytes 27.2 % (21.0-51.0); %Monocytes 12.9 % (0.0-10.0); %Neutrophils 54.4 % (42.0-75.0); Hematocrit 31.5 % (36.0-47.0); Hemoglobin 9.5 g/dL (12.0-16.0); Mean Corpuscular HGB CONC 30.2 g/dL (32.0-36.0); Mean Corpuscular Hemoglobin 25.5 pg (27.0-31.0); Mean Corpuscular Volume 84.5 fL (78.0-98.0); Mean Platelet Volume 11.2 fL (7.4-10.4); Platelet Count 260 10x3/uL (130-400); RBC Distribution Width 14.9 % (11.5-14.5); Red Blood Cell (RBC) Count 3.73 mill/uL (4.20-5.40)
[2024-03-30 06:55] LABS: Anion Gap 14 mmol/L (10-20); BUN (Urea Nitrogen) 25 mg/dL (9.8-20.1); Calc. Creatinine Clearance 32 mL/min (70-130); Calcium 8.4 mg/dL (7.8-10.44); Carbon Dioxide 23 mmol/L (23-31); Chloride 103 mmol/L (98-107); Estimated GFR 26; Glucose 112 mg/dL (83-110); Potassium 3.8 mmol/L (3.5-5.1); Sodium 136 mmol/L (136-145)
[2024-03-30] MEDS: Sodium Chloride 0.9% 1,000 ML IV SCH (08:50)
[2024-03-30] MEDS: Polyethylene Glycol 3350 17 GM Packet PO SCH (08:50)
[2024-03-30 16:40] VITALS: BP 172/72; TEMP 98.3
== END 2024-03-30 17:51 | disposition home or self-care (01) | DRG 683 ==
LOC: ERS 22:36 → T4-A 03-29 02:02 → OBSVTOIN 03-29 10:23
PROVIDERS: ADMIT Student in an Organized Health Care Education/Training Program; ATTEND Family Medicine
DX: N17.9 Acute kidney failure, unspecified (principal); E87.1 Hypo-osmolality and hyponatremia; I13.0 Hypertensive heart and chronic kidney disease with heart failure and stage 1 through stage 4 chronic kidney disease, or unspecified chronic kidney disease; N39.0 Urinary tract infection, site not specified; I50.32 Chronic diastolic (congestive) heart failure; J44.9 Chronic obstructive pulmonary disease, unspecified; E11.22 Type 2 diabetes mellitus with diabetic chronic kidney disease; E03.9 Hypothyroidism, unspecified; M81.0 Age-related osteoporosis without current pathological fracture; Z98.49 Cataract extraction status, unspecified eye; Z90.89 Acquired absence of other organs; Z90.710 Acquired absence of both cervix and uterus; Z87.81 Personal history of (healed) traumatic fracture; Z87.01 Personal history of pneumonia (recurrent); Z88.0 Allergy status to penicillin; Z91.040 Latex allergy status; I48.0 Paroxysmal atrial fibrillation; E78.5 Hyperlipidemia, unspecified; N18.30 Chronic kidney disease, stage 3 unspecified; E66.01 Morbid (severe) obesity due to excess calories; Z68.39 Body mass index [BMI] 39.0-39.9, adult
CPT/HCPCS: 36415; 36416; 71045; 80048; 80053; 81001; 83880; 85025; 93005; 96374; 96375; G0378; J0696; J2405; J7050

== ENCOUNTER 2024-07-17 00:01 | Inpatient (IN) | payer MEDICARE ==
[2024-07-18 01:58] LABS: #Basophils 0.05 10x3/uL (0.0-0.2); %Basophils 0.2 % (0.0-1.0); %Eosinophils 0.1 % (0.0-10.0); %Lymphocytes 9.8 % (21.0-51.0); %Monocytes 9.5 % (0.0-10.0); %Neutrophils 79.9 % (42.0-75.0); Hematocrit 36.1 % (36.0-47.0); Hemoglobin 11.3 g/dL (12.0-16.0); Mean Corpuscular HGB CONC 31.3 g/dL (32.0-36.0); Mean Corpuscular Hemoglobin 26.5 pg (27.0-31.0); Mean Corpuscular Volume 84.7 fL (78.0-98.0); Mean Platelet Volume 10.9 fL (7.4-10.4); Platelet Count 219 10x3/uL (130-400); RBC Distribution Width 16.6 % (11.5-14.5); Red Blood Cell (RBC) Count 4.26 mill/uL (4.20-5.40)
[2024-07-18 01:58] LABS: SARS-CoV-2 E Target Negative; SARS-CoV-2 N2 Target Negative; SARS-CoV-2 NAA Rapid Test Not Detected (NotDetected); SARS-CoV-2 RdRP gene Negative
[2024-07-18 02:37] LABS: ALT (SGPT) 9 U/L (8-55); AST (SGOT) 10 U/L (5-34); Albumin 3.3 g/dL (3.4-4.8); Alkaline Phosphatase 57 U/L (40-110); Anion Gap 16 mmol/L (10-20); BUN (Urea Nitrogen) 36 mg/dL (9.8-20.1); Bilirubin, Total 0.4 mg/dL (0.2-1.2); Calc. Creatinine Clearance 0 mL/min (70-130); Carbon Dioxide 25 mmol/L (23-31); Chloride 97 mmol/L (98-107); Estimated GFR 24; Globulin 3.2 g/dL (2.4-3.5); Glucose 144 mg/dL (83-110); Magnesium 1.5 mg/dL (1.6-2.6); Potassium 4.5 mmol/L (3.5-5.1); Protein, Total 6.5 g/dL (5.8-8.1); Sodium 133 mmol/L (136-145)
[2024-07-18 03:11] LABS: Bilirubin Negative (Negative); Blood, Urine Negative (Negative); CAUTI Indications for Culture Dysuria,urgency,freq; Clarity Clear (Clear); Glucose, Urine (Dipstick) Normal (Negative); Ketone, Urine Negative (Negative); Leukocyte Negative Leu/uL (Negative); Nitrite Negative (Negative); Protein, Urine (Dipstick) Negative (Neg-Trace); RBC/HPF 0-3 HPF (0-3); Specific Gravity, Urine 1.015 (1.002-1.036); Squamous Epithelial 0-3 HPF (0-3); Urobilinogen Normal mg/dL (Less than 2); WBC/HPF 0-3 HPF (0-3)
[2024-07-18 03:12] LABS: Bacteria/HPF Rare-Few HPF (None Seen); Urine Culture Reflex No No
[2024-07-18] MEDS ORDERED: Acetaminophen 500 MG TAB ONE (03:23)
[2024-07-18] MEDS ORDERED: Furosemide 20 MG (2 mL) VIAL ONE (03:49)
[2024-07-18] MEDS ORDERED: Furosemide 40 MG (4 mL) VIAL ONE ×2 (03:53→14:34)
[2024-07-18] MEDS ORDERED: guaiFENesin ER 600 MG TAB PO PRN (09:49)
[2024-07-18] MEDS ORDERED: traMADol HCl 50 MG TAB PO PRN (09:49)
[2024-07-18] MEDS ORDERED: HYDROcodone/Acetaminophen 10/325 mg Tablet PO PRN (09:49)
[2024-07-18] MEDS ORDERED: Montelukast Sodium 10 mg Tablet PO PRN (09:49)
[2024-07-18] MEDS ORDERED: Fluticasone Propionate Nasal Spray 16 gm Bottle NASAL PRN (09:49)
[2024-07-18] MEDS ORDERED: Ipratropium/Albuterol 3 ML NEB NEB PRN (09:53)
[2024-07-18] MEDS ORDERED: Ondansetron PF 4 MG/2 ML Vial IVP PRN (09:54)
[2024-07-18] MEDS ORDERED: Ondansetron ODT 4 MG TAB PO PRN (09:54)
[2024-07-18] MEDS ORDERED: Albuterol 2.5 MG (3 mL) NEB NEB PRN (10:24)
[2024-07-18 11:20] VITALS: BMI 43.0
[2024-07-18] MEDS: Pantoprazole DR 40 MG TAB PO SCH (12:30)
[2024-07-18] MEDS: methylPREDNISolone Sod Succ 40 MG VIAL IVP SCH ×2 (12:31→14:38)
[2024-07-18] MEDS: Magnesium 2 GM/50 ML(in water) 2 GM in Premix 1 BAG IVPB SCH (12:31)
[2024-07-18] MEDS ORDERED: Cefepime 1 GM VIAL ONE (12:34)
[2024-07-18] MEDS ORDERED: Sodium Chloride 0.9% 100 ML ONE (12:39)
[2024-07-18] MEDS: Cefepime 1 GM in Sodium Chloride 0.9% 100 ML IVPB SCH ×2 (12:43→22:56)
[2024-07-18] MEDS ORDERED: Doxycycline 100 MG CAP ONE (12:47)
[2024-07-18] MEDS: Doxycycline 100 MG CAP PO SCH ×2 (12:49→12:50)
[2024-07-18] MEDS: Furosemide 40 MG (4 mL) VIAL SLOW IVP SCH (14:38)
[2024-07-18] MEDS ORDERED: Glucagon 1 MG/ML KIT IM PRN (15:55)
[2024-07-18] MEDS ORDERED: Dextrose 5% in Water 1,000 ML IV PRN (15:55)
[2024-07-18] MEDS ORDERED: Dextrose 50% Abboject 50 ML SYRINGE SLOW IVP PRN (15:55)
[2024-07-18] MEDS: Mometasone 200 MCG/Formoterol 5 MCG 120 PUFF INHALER INH SCH (19:30)
[2024-07-18] MEDS: Sacubitril 24MG/Valsartan 26 MG TAB PO SCH (21:09)
[2024-07-18] MEDS: Atorvastatin Calcium 20 MG TAB PO SCH (21:10)
[2024-07-18] MEDS: Gabapentin 100 MG CAP PO SCH (21:11)
[2024-07-18] MEDS: Phenol 177 ML BOT PO PRN (21:12)
[2024-07-18] MEDS: Nystatin Powder 15 GM BOT TOP SCH (21:20)
[2024-07-18] MEDS: Insulin Lispro 100 UNIT/ML 10 ML VIAL SC PRN (21:21)
[2024-07-18] MEDS: Ipratropium/Albuterol 3 ML NEB NEB PRN (22:59)
[2024-07-19 06:02] LABS: #Basophils Less than 0.03 10x3/uL (0.0-0.2); #Eosinphils Less than 0.03 10x3/uL (0.0-0.7); %Basophils 0.1 % (0.0-1.0); %Lymphocytes 6.6 % (21.0-51.0); %Monocytes 1.6 % (0.0-10.0); %Neutrophils 91.3 % (42.0-75.0); Hematocrit 34.7 % (36.0-47.0); Hemoglobin 11.2 g/dL (12.0-16.0); Mean Corpuscular HGB CONC 32.3 g/dL (32.0-36.0); Mean Corpuscular Hemoglobin 26.4 pg (27.0-31.0); Mean Corpuscular Volume 81.6 fL (78.0-98.0); Mean Platelet Volume 11.5 fL (7.4-10.4); Platelet Count 217 10x3/uL (130-400); RBC Distribution Width 16.5 % (11.5-14.5); Red Blood Cell (RBC) Count 4.25 mill/uL (4.20-5.40)
[2024-07-19] MEDS: Insulin Lispro 100 UNIT/ML 10 ML VIAL SC PRN (06:05)
[2024-07-19 06:19] LABS: ALT (SGPT) 8 U/L (8-55); AST (SGOT) 8 U/L (5-34); Albumin 2.7 g/dL (3.4-4.8); Alkaline Phosphatase 46 U/L (40-110); Anion Gap 15 mmol/L (10-20); BUN (Urea Nitrogen) 40 mg/dL (9.8-20.1); Bilirubin, Total 0.3 mg/dL (0.2-1.2); Calc. Creatinine Clearance 34 mL/min (70-130); Calcium 8.7 mg/dL (7.8-10.44); Carbon Dioxide 26 mmol/L (23-31); Chloride 95 mmol/L (98-107); Estimated GFR 27; Globulin 3.6 g/dL (2.4-3.5); Glucose 258 mg/dL (83-110); Magnesium 1.6 mg/dL (1.6-2.6); Potassium 4.1 mmol/L (3.5-5.1); Protein, Total 6.3 g/dL (5.8-8.1); Sodium 132 mmol/L (136-145)
[2024-07-19] MEDS: Aspirin 81 mg Enteric Coated Tablet PO SCH (09:40)
[2024-07-19] MEDS: Furosemide 40 MG TAB PO SCH (09:41)
[2024-07-19] MEDS: Pantoprazole DR 40 MG TAB PO SCH (09:41)
[2024-07-19] MEDS ORDERED: cloNIDine 0.1 MG TAB PO PRN (11:46)
[2024-07-19] MEDS: Benzonatate 100 MG CAP PO PRN (13:38)
[2024-07-19] MEDS: Docusate 100 MG CAP PO PRN (21:13)
[2024-07-19] MEDS: Acetaminophen 325 MG TAB PO PRN (21:16)
[2024-07-20 05:58] LABS: #Basophils Less than 0.03 10x3/uL (0.0-0.2); #Eosinphils Less than 0.03 10x3/uL (0.0-0.7); %Basophils 0.1 % (0.0-1.0); %Lymphocytes 5.2 % (21.0-51.0); %Monocytes 2.8 % (0.0-10.0); %Neutrophils 91.3 % (42.0-75.0); Hematocrit 34.6 % (36.0-47.0); Hemoglobin 10.7 g/dL (12.0-16.0); Mean Corpuscular HGB CONC 30.9 g/dL (32.0-36.0); Mean Corpuscular Hemoglobin 26.1 pg (27.0-31.0); Mean Corpuscular Volume 84.4 fL (78.0-98.0); Mean Platelet Volume 11.1 fL (7.4-10.4); Platelet Count 245 10x3/uL (130-400); RBC Distribution Width 16.9 % (11.5-14.5)
[2024-07-20 06:30] LABS: Anion Gap 18 mmol/L (10-20); BUN (Urea Nitrogen) 51 mg/dL (9.8-20.1); Calc. Creatinine Clearance 29 mL/min (70-130); Calcium 8.3 mg/dL (7.8-10.44); Carbon Dioxide 23 mmol/L (23-31); Chloride 96 mmol/L (98-107); Estimated GFR 23; Glucose 253 mg/dL (83-110); Potassium 3.9 mmol/L (3.5-5.1); Sodium 133 mmol/L (136-145)
[2024-07-20] MEDS: traMADol HCl 50 MG TAB PO PRN (12:20)
[2024-07-21] MEDS: methylPREDNISolone Sod Succ 40 MG VIAL IVP SCH (08:50)
[2024-07-21 09:34] LABS: #Basophils Less than 0.03 10x3/uL (0.0-0.2); #Eosinphils Less than 0.03 10x3/uL (0.0-0.7); %Basophils 0.1 % (0.0-1.0); %Lymphocytes 8.4 % (21.0-51.0); %Monocytes 6.7 % (0.0-10.0); %Neutrophils 84.1 % (42.0-75.0); Hematocrit 36.5 % (36.0-47.0); Hemoglobin 11.3 g/dL (12.0-16.0); Mean Corpuscular Hemoglobin 26.4 pg (27.0-31.0); Mean Corpuscular Volume 85.3 fL (78.0-98.0); Mean Platelet Volume 10.9 fL (7.4-10.4); Platelet Count 268 10x3/uL (130-400); RBC Distribution Width 17.2 % (11.5-14.5); Red Blood Cell (RBC) Count 4.28 mill/uL (4.20-5.40)
[2024-07-21 09:57] LABS: Anion Gap 14 mmol/L (10-20); BUN (Urea Nitrogen) 61 mg/dL (9.8-20.1); Calc. Creatinine Clearance 29 mL/min (70-130); Carbon Dioxide 27 mmol/L (23-31); Chloride 98 mmol/L (98-107); Estimated GFR 22; Glucose 144 mg/dL (83-110); Potassium 3.2 mmol/L (3.5-5.1); Sodium 136 mmol/L (136-145)
[2024-07-21 11:24] VITALS: TEMP 98.4
[2024-07-21] MEDS: Potassium Chloride 20 MEQ TAB PO SCH (11:49)
[2024-07-21 12:12] VITALS: BP 135/61
== END 2024-07-21 14:39 | disposition home or self-care (01) | DRG 291 ==
LOC: ERS 00:01 → ERHOLD 07-18 04:53 → 2NO 07-18 16:48
PROVIDERS: ADMIT Student in an Organized Health Care Education/Training Program; ATTEND Internal Medicine
DX: I13.0 Hypertensive heart and chronic kidney disease with heart failure and stage 1 through stage 4 chronic kidney disease, or unspecified chronic kidney disease (principal); I50.33 Acute on chronic diastolic (congestive) heart failure; J44.1 Chronic obstructive pulmonary disease with (acute) exacerbation; E03.9 Hypothyroidism, unspecified; N18.30 Chronic kidney disease, stage 3 unspecified; E11.22 Type 2 diabetes mellitus with diabetic chronic kidney disease; Z91.041 Radiographic dye allergy status; Z91.040 Latex allergy status; Z88.0 Allergy status to penicillin; Z88.2 Allergy status to sulfonamides; Z88.8 Allergy status to other drugs, medicaments and biological substances; Z98.41 Cataract extraction status, right eye; Z98.42 Cataract extraction status, left eye; Z90.89 Acquired absence of other organs; Z90.710 Acquired absence of both cervix and uterus; Z98.890 Other specified postprocedural states; Z79.82 Long term (current) use of aspirin
CPT/HCPCS: 36415; 71045; 80048; 80053; 81001; 83605; 83735; 83880; 84100; 84484; 85025; 93005; 93306; 94640; 96374; J0692; J1815; J1940; J2919; J3475; J7620; U0002

== ENCOUNTER 2024-08-07 11:36 | Emergency (ER) | payer MEDICARE ==
[~2024-08-07 11:36] MED LIST changes: -Iopamidol-370 76% 500 ML 1 ML ONE; +Iopamidol-370 76% 500 ML MDV (1 ML CHARGE) ONE
[2024-08-07] MEDS ORDERED: diphenhydrAMINE 50 MG/ML VIAL ONE (12:41)
[2024-08-07] MEDS ORDERED: methylPREDNISolone Sod Succ/PF 125 MG/2 ML VIAL ONE (12:42)
[2024-08-07] MEDS ORDERED: Famotidine/PF 20 mg/2ml Vial ONE (12:44)
[2024-08-07 12:48] LABS: #Basophils Less than 0.03 10x3/uL (0.0-0.2); %Basophils 0.3 % (0.0-1.0); %Eosinophils 1.5 % (0.0-10.0); %Lymphocytes 22.8 % (21.0-51.0); %Neutrophils 64.3 % (42.0-75.0); Hematocrit 35.8 % (36.0-47.0); Hemoglobin 10.9 g/dL (12.0-16.0); Mean Corpuscular HGB CONC 30.4 g/dL (32.0-36.0); Mean Corpuscular Volume 88.6 fL (78.0-98.0); Platelet Count 182 10x3/uL (130-400); RBC Distribution Width 16.7 % (11.5-14.5); Red Blood Cell (RBC) Count 4.04 mill/uL (4.20-5.40)
[2024-08-07 13:05] LABS: ALT (SGPT) 17 U/L (8-55); AST (SGOT) 14 U/L (5-34); Albumin 3.2 g/dL (3.4-4.8); Alkaline Phosphatase 38 U/L (40-110); Anion Gap 13 mmol/L (10-20); BUN (Urea Nitrogen) 37 mg/dL (9.8-20.1); Bilirubin, Total 0.4 mg/dL (0.2-1.2); Calc. Creatinine Clearance 0 mL/min (70-130); Calcium 8.4 mg/dL (7.8-10.44); Carbon Dioxide 31 mmol/L (23-31); Chloride 95 mmol/L (98-107); Estimated GFR 24; Globulin 2.5 g/dL (2.4-3.5); Glucose 172 mg/dL (83-110); Lipase 32 U/L (8-78); PTT 26.6 sec (22.9-36.1); Potassium 4.7 mmol/L (3.5-5.1); Protein, Total 5.7 g/dL (5.8-8.1); Prothrombin Time 13.5 sec (12.0-14.7); Sodium 134 mmol/L (136-145)
[2024-08-07 13:11] LABS: Troponin I 0.022 ng/mL (< 0.028)
[2024-08-07] MEDS ORDERED: Aspirin Chewable 81 MG TAB ONE (15:59)
[2024-08-07] MEDS ORDERED: traMADol HCl 50 MG TAB PO PRN (16:13)
[2024-08-07] MEDS ORDERED: Ondansetron PF 4 MG/2 ML Vial IVP PRN (16:13)
[2024-08-07] MEDS ORDERED: Acetaminophen 325 MG TAB PO PRN (16:13)
[2024-08-08] MEDS ORDERED: Enoxaparin 30 MG (0.3 mL) SYRINGE SC SCH (09:00)
[2024-08-08] MEDS ORDERED: Aspirin Chewable 81 MG TAB PO SCH (09:00)
== END 2024-08-07 17:05 | disposition home or self-care (01) ==
LOC: ERS 11:36 → SUATTDRO 11:36 → ERS 17:05
PROVIDERS: ADMIT Internal Medicine; ATTEND Internal Medicine
DX: T82.330A Leakage of aortic (bifurcation) graft (replacement), initial encounter (principal); R07.89 Other chest pain; J90 Pleural effusion, not elsewhere classified; I13.0 Hypertensive heart and chronic kidney disease with heart failure and stage 1 through stage 4 chronic kidney disease, or unspecified chronic kidney disease; E11.22 Type 2 diabetes mellitus with diabetic chronic kidney disease; N18.9 Chronic kidney disease, unspecified; I50.9 Heart failure, unspecified; J44.9 Chronic obstructive pulmonary disease, unspecified; E11.40 Type 2 diabetes mellitus with diabetic neuropathy, unspecified; I48.91 Unspecified atrial fibrillation; E03.9 Hypothyroidism, unspecified; I71.20 Thoracic aortic aneurysm, without rupture, unspecified; Z95.5 Presence of coronary angioplasty implant and graft
CPT/HCPCS: 71045; 71275; 74174; 80053; 83690; 83880; 84484; 85025; 85610; 85730; 93005; 94760; J1200; J2919; J3490; Q9967

== ENCOUNTER 2024-11-24 12:58 | Inpatient (IN) | payer MEDICARE ==
[2024-11-24] MEDS ORDERED: Dexamethasone 10 MG/ML VIAL ONE (13:39)
[2024-11-24] MEDS ORDERED: Piperacillin/Tazobactam 4.5 GM VIAL ONE (13:39)
[2024-11-24] MEDS ORDERED: Sodium Chloride 0.9% 100 ML ONE (13:39)
[2024-11-24] MEDS ORDERED: Albuterol 2.5 MG (3 mL) NEB ONE (13:46)
[2024-11-24 14:30] LABS: #Basophils 0.04 10x3/uL (0.0-0.2); %Basophils 0.8 % (0.0-1.0); %Eosinophils 1.6 % (0.0-10.0); %Lymphocytes 18.6 % (21.0-51.0); %Monocytes 16.4 % (0.0-10.0); %Neutrophils 62.4 % (42.0-75.0); Hematocrit 39.8 % (36.0-47.0); Mean Corpuscular HGB CONC 30.2 g/dL (32.0-36.0); Mean Corpuscular Hemoglobin 26.9 pg (27.0-31.0); Mean Corpuscular Volume 89.2 fL (78.0-98.0); Mean Platelet Volume 10.4 fL (7.4-10.4); Platelet Count 198 10x3/uL (130-400); RBC Distribution Width 14.4 % (11.5-14.5); Red Blood Cell (RBC) Count 4.46 mill/uL (4.20-5.40)
[2024-11-24 14:50] LABS: Troponin I 0.034 ng/mL (< 0.028)
[2024-11-24 15:01] LABS: Chloride 99 mmol/L (98-107); Potassium 3.9 mmol/L (3.5-5.1); Sodium 135 mmol/L (136-145)
[2024-11-24 15:02] LABS: Albumin 3.4 g/dL (3.1-4.5); Anion Gap 15 mmol/L (10-20); BUN (Urea Nitrogen) 17 mg/dL (9.8-20.1); Bilirubin, Total 0.3 mg/dL (0.3-1.2); Calc. Creatinine Clearance 0 mL/min (70-130); Calcium 8.6 mg/dL (7.8-10.44); Carbon Dioxide 25 mmol/L (23-31); Estimated GFR 23; Glucose 158 mg/dL (83-110); Protein, Total 6.6 g/dL (5.8-8.1)
[2024-11-24 15:03] LABS: ALT (SGPT) 10 U/L (Less than 34); AST (SGOT) 16 U/L (11-34); Alkaline Phosphatase 51 U/L (40-110); Globulin 3.2 g/dL (2.4-3.5)
[2024-11-24] MEDS ORDERED: Bisacodyl 5 MG TAB PO PRN (17:21)
[2024-11-24] MEDS ORDERED: Ondansetron PF 4 MG/2 ML Vial IVP PRN (17:21)
[2024-11-24] MEDS ORDERED: Montelukast Sodium 10 mg Tablet PO PRN (17:25)
[2024-11-24] MEDS ORDERED: Febuxostat 40 MG TAB PO PRN (17:25)
[2024-11-24 19:24] LABS: Troponin I 0.028 ng/mL (< 0.028)
[2024-11-24 22:01] VITALS: BMI 44.1
[2024-11-24] MEDS: Ipratropium/Albuterol 3 ML NEB NEB SCH (22:10)
[2024-11-24] MEDS: Budesonide 0.25 MG/2 ML NEB NEB SCH (22:10)
[2024-11-24] MEDS: Atorvastatin Calcium 20 MG TAB PO SCH (22:25)
[2024-11-24] MEDS: Gabapentin 100 MG CAP PO SCH (22:25)
[2024-11-24] MEDS: Piperacillin/Tazobactam 3.375 GM in Sodium Chloride 0.9% 100 ML IVPB SCH (22:26)
[2024-11-25] MEDS: Ipratropium/Albuterol 3 ML NEB NEB PRN (04:17)
[2024-11-25] MEDS: Vancomycin (BATCH) 2 GM in Premix 1 BAG IVPB SCH ×2 (04:55)
[2024-11-25] MEDS: Vancomycin 1 GM in Premix 1 BAG IVPB SCH (04:56)
[2024-11-25] MEDS: Piperacillin/Tazobactam 3.375 GM in Sodium Chloride 0.9% 100 ML IVPB SCH (05:28)
[2024-11-25 05:32] LABS: #Basophils Less than 0.03 10x3/uL (0.0-0.2); #Eosinophils Less than 0.03 10x3/uL (0.0-0.7); %Basophils 0.2 % (0.0-1.0); %Lymphocytes 19.9 % (21.0-51.0); %Monocytes 3.7 % (0.0-10.0); %Neutrophils 75.5 % (42.0-75.0); Hematocrit 41.5 % (36.0-47.0); Hemoglobin 12.8 g/dL (12.0-16.0); Mean Corpuscular HGB CONC 30.8 g/dL (32.0-36.0); Mean Corpuscular Hemoglobin 26.8 pg (27.0-31.0); Mean Platelet Volume 10.7 fL (7.4-10.4); Platelet Count 221 10x3/uL (130-400); RBC Distribution Width 14.2 % (11.5-14.5); Red Blood Cell (RBC) Count 4.77 mill/uL (4.20-5.40)
[2024-11-25] MEDS: traMADol HCl 50 MG TAB PO PRN ×3 (05:45→21:49)
[2024-11-25 05:50] LABS: Chloride 101 mmol/L (98-107); Potassium 4.4 mmol/L (3.5-5.1); Sodium 137 mmol/L (136-145)
[2024-11-25 05:51] LABS: Calcium 8.6 mg/dL (7.8-10.44); Glucose 253 mg/dL (83-110)
[2024-11-25 05:53] LABS: Anion Gap 15 mmol/L (10-20); Carbon Dioxide 25 mmol/L (23-31)
[2024-11-25 05:54] LABS: Troponin I 0.015 ng/mL (< 0.028)
[2024-11-25 05:55] LABS: Calc. Creatinine Clearance 31 mL/min (70-130); Estimated GFR 26
[2024-11-25 05:56] LABS: BUN (Urea Nitrogen) 24 mg/dL (9.8-20.1)
[2024-11-25 06:03] LABS: Vancomycin, Random 24.2 ug/mL (See Comment)
[2024-11-25] MEDS: Aspirin 81 mg Enteric Coated Tablet PO SCH (08:52)
[2024-11-25] MEDS: Thyroid 30 MG TAB PO SCH (08:52)
[2024-11-25] MEDS: Acetaminophen 325 MG TAB PO PRN (08:52)
[2024-11-25] MEDS: Pantoprazole 40 MG DR.TAB PO SCH (08:53)
[2024-11-25] MEDS: hydrALAZINE 20 MG/ML VIAL SLOW IVP PRN (10:51)
[2024-11-25] MEDS: Carvedilol 6.25 MG TAB PO SCH (10:54)
[2024-11-25] MEDS: Benzonatate 100 MG CAP PO PRN (11:52)
[2024-11-25] MEDS: Sacubitril 24MG/Valsartan 26 MG TAB PO SCH ×2 (11:53→21:32)
[2024-11-25] MEDS ORDERED: Vancomycin Dose by Levels Sliding Scale (Wt 71-99) FS SCH (13:30)
[2024-11-25] MEDS ORDERED: traMADol HCl 50 MG TAB PO PRN (15:18)
[2024-11-25] MEDS ORDERED: hydrALAZINE 25 MG TAB PO PRN ×2 (15:23→15:27)
[2024-11-25] MEDS ORDERED: Furosemide 40 MG TAB PO SCH (15:30)
[2024-11-25] MEDS ORDERED: Furosemide 20 MG (2 mL) VIAL SLOW IVP SCH (15:30)
[2024-11-25] MEDS ORDERED: Ipratropium/Albuterol 3 ML NEB NEB PRN (15:40)
[2024-11-25] MEDS ORDERED: Furosemide 40 MG (4 mL) VIAL SLOW IVP SCH (15:45)
[2024-11-25] MEDS: Furosemide 20 MG (2 mL) VIAL SLOW IVP SCH (16:57)
[2024-11-25] MEDS: Ipratropium/Albuterol 3 ML NEB NEB SCH (18:29)
[2024-11-25] MEDS: Mometasone 200 MCG/Formoterol 5 MCG 120 PUFF INHALER INH SCH (18:33)
[2024-11-25] MEDS ORDERED: Vancomycin HCl 500 MG in Sodium Chloride 0.9% 100 ML IVPB SCH (20:00)
[2024-11-25] MEDS ORDERED: Sacubitril 24MG/Valsartan 26 MG TAB PO SCH ×2 (21:00)
[2024-11-25] MEDS: Doxycycline 100 MG CAP PO SCH (21:32)
[2024-11-25] MEDS: Metoprolol Succinate XL 50 MG ER.TAB PO SCH (21:32)
[2024-11-25] MEDS: guaiFENesin ER 600 MG TAB PO SCH (21:33)
[2024-11-26 05:18] LABS: #Basophils 0.03 10x3/uL (0.0-0.2); #Eosinophils Less than 0.03 10x3/uL (0.0-0.7); %Basophils 0.4 % (0.0-1.0); %Lymphocytes 17.6 % (21.0-51.0); %Monocytes 13.1 % (0.0-10.0); %Neutrophils 68.6 % (42.0-75.0); Hematocrit 38.6 % (36.0-47.0); Mean Corpuscular HGB CONC 31.1 g/dL (32.0-36.0); Mean Corpuscular Hemoglobin 26.6 pg (27.0-31.0); Mean Corpuscular Volume 85.6 fL (78.0-98.0); Mean Platelet Volume 10.8 fL (7.4-10.4); Platelet Count 236 10x3/uL (130-400); RBC Distribution Width 14.3 % (11.5-14.5); Red Blood Cell (RBC) Count 4.51 mill/uL (4.20-5.40)
[2024-11-26 06:10] LABS: Anion Gap 15 mmol/L (10-20); BUN (Urea Nitrogen) 24 mg/dL (9.8-20.1); Calc. Creatinine Clearance 30 mL/min (70-130); Calcium 8.1 mg/dL (7.8-10.44); Carbon Dioxide 27 mmol/L (23-31); Chloride 101 mmol/L (98-107); Estimated GFR 25; Glucose 122 mg/dL (83-110); Magnesium 1.4 mg/dL (1.6-2.6); Potassium 3.6 mmol/L (3.5-5.1); Sodium 139 mmol/L (136-145)
[2024-11-26] MEDS: cloNIDine 0.1 MG TAB PO PRN (06:36)
[2024-11-26] MEDS: Levothyroxine Sodium 25 MCG TAB PO SCH (06:42)
[2024-11-26] MEDS ORDERED: Furosemide 40 MG TAB PO SCH (07:30)
[2024-11-26] MEDS ORDERED: Electrolyte Replacement Protocol 1 EACH FS PRN (07:32)
[2024-11-26] MEDS ORDERED: Magnesium 2 GM/50 ML(in water) 2 GM in Premix 1 BAG IVPB SCH (07:45)
[2024-11-26] MEDS ORDERED: Electrolyte Replacement Protocol FS PRN (07:45)
[2024-11-26] MEDS: Furosemide 20 MG (2 mL) VIAL SLOW IVP SCH (08:41)
[2024-11-26] MEDS: Empagliflozin 25 MG TAB PO SCH (08:42)
[2024-11-26] MEDS: Magnesium Sulfate In Water 4 GM in Premix 1 BAG IVPB SCH (08:46)
[2024-11-26] MEDS ORDERED: Furosemide 40 MG (4 mL) VIAL SLOW IVP SCH (09:00)
[2024-11-26] MEDS ORDERED: Furosemide 20 MG (2 mL) VIAL SLOW IVP SCH (09:00)
[2024-11-26] MEDS ORDERED: Furosemide 100 MG in Sodium Chloride 0.9% 100 ML IVPB SCH (14:30)
[2024-11-26] MEDS: Potassium Chloride 20 MEQ TAB PO SCH ×2 (15:17→15:23)
[2024-11-26] MEDS: Furosemide 100 MG in Sodium Chloride 0.9% 90 ML IVPB SCH (17:19)
[2024-11-27 05:08] LABS: Hematocrit 41.7 % (36.0-47.0); Hemoglobin 12.9 g/dL (12.0-16.0); Mean Corpuscular HGB CONC 30.9 g/dL (32.0-36.0); Mean Corpuscular Hemoglobin 26.6 pg (27.0-31.0); Mean Platelet Volume 11.2 fL (7.4-10.4); Platelet Count 249 10x3/uL (130-400); RBC Distribution Width 14.4 % (11.5-14.5); Red Blood Cell (RBC) Count 4.85 mill/uL (4.20-5.40)
[2024-11-27 05:25] LABS: Anion Gap 18 mmol/L (10-20); BUN (Urea Nitrogen) 29 mg/dL (9.8-20.1); Calc. Creatinine Clearance 28 mL/min (70-130); Calcium 8.4 mg/dL (7.8-10.44); Carbon Dioxide 27 mmol/L (23-31); Chloride 97 mmol/L (98-107); Estimated GFR 23; Glucose 126 mg/dL (83-110); Magnesium 1.5 mg/dL (1.6-2.6); Potassium 3.5 mmol/L (3.5-5.1); Sodium 138 mmol/L (136-145)
[2024-11-27] MEDS ORDERED: Magnesium 2 GM/50 ML(in water) 2 GM in Premix 1 BAG IVPB SCH (06:00)
[2024-11-27 06:20] LABS: Band 13 % (5-11); Lymphocytes 13 % (21-51); Monocytes 8 % (0-10); Neutrophil 66 % (42-75); Platelet Adequacy Comment Platelets Normal; Polychromasia SLIGHT = 2-3 cells HPF (0-2)
[2024-11-27] MEDS: Magnesium 2 GM/50 ML(in water) 2 GM in Premix 1 BAG IVPB SCH (08:20)
[2024-11-27] MEDS: Potassium Chloride 20 MEQ TAB PO SCH ×3 (10:15→16:27)
[2024-11-27] MEDS: Magnesium Oxide 400 MG TAB PO SCH (10:16)
[2024-11-27] MEDS: Furosemide 100 MG in Sodium Chloride 0.9% 90 ML IVPB SCH (10:42)
[2024-11-27 14:10] LABS: Anion Gap 16 mmol/L (10-20); BUN (Urea Nitrogen) 31 mg/dL (9.8-20.1); Calc. Creatinine Clearance 29 mL/min (70-130); Calcium 8.4 mg/dL (7.8-10.44); Carbon Dioxide 28 mmol/L (23-31); Chloride 96 mmol/L (98-107); Estimated GFR 24; Glucose 185 mg/dL (83-110); Potassium 3.4 mmol/L (3.5-5.1); Sodium 137 mmol/L (136-145)
[2024-11-27] MEDS: Heparin 5,000 UNITS/ML VIAL SC SCH (14:15)
[2024-11-27] MEDS ORDERED: Potassium Chloride 20 MEQ TAB PO ONE (14:28)
[2024-11-27] MEDS: Ipratropium/Albuterol 3 ML NEB NEB SCH (14:35)
[2024-11-27] MEDS ORDERED: Piperacillin/Tazobactam 3.375 GM in Sodium Chloride 0.9% 100 ML IVPB SCH (18:00)
[2024-11-28 04:28] LABS: #Basophils 0.05 10x3/uL (0.0-0.2); %Basophils 0.6 % (0.0-1.0); %Eosinophils 1.3 % (0.0-10.0); %Lymphocytes 25.6 % (21.0-51.0); %Monocytes 12.5 % (0.0-10.0); %Neutrophils 59.8 % (42.0-75.0); Hematocrit 42.2 % (36.0-47.0); Hemoglobin 13.2 g/dL (12.0-16.0); Mean Corpuscular HGB CONC 31.3 g/dL (32.0-36.0); Mean Corpuscular Hemoglobin 26.9 pg (27.0-31.0); Mean Corpuscular Volume 85.9 fL (78.0-98.0); Platelet Count 230 10x3/uL (130-400); RBC Distribution Width 14.4 % (11.5-14.5); Red Blood Cell (RBC) Count 4.91 mill/uL (4.20-5.40)
[2024-11-28 04:47] LABS: Anion Gap 18 mmol/L (10-20); BUN (Urea Nitrogen) 32 mg/dL (9.8-20.1); Calc. Creatinine Clearance 28 mL/min (70-130); Calcium 8.4 mg/dL (7.8-10.44); Carbon Dioxide 23 mmol/L (23-31); Chloride 101 mmol/L (98-107); Estimated GFR 23; Glucose 130 mg/dL (83-110); Magnesium 1.4 mg/dL (1.6-2.6); Potassium 4.4 mmol/L (3.5-5.1); Sodium 138 mmol/L (136-145)
[2024-11-28] MEDS: Magnesium Sulfate In Water 4 GM in Premix 1 BAG IVPB SCH (08:34)
[2024-11-28 14:52] LABS: Anion Gap 15 mmol/L (10-20); BUN (Urea Nitrogen) 33 mg/dL (9.8-20.1); Calc. Creatinine Clearance 31 mL/min (70-130); Calcium 8.7 mg/dL (7.8-10.44); Carbon Dioxide 26 mmol/L (23-31); Chloride 100 mmol/L (98-107); Estimated GFR 26; Glucose 184 mg/dL (83-110); Potassium 4.1 mmol/L (3.5-5.1); Sodium 137 mmol/L (136-145)
[2024-11-29 11:17] LABS: #Basophils Less than 0.03 10x3/uL (0.0-0.2); %Basophils 0.2 % (0.0-1.0); %Eosinophils 2.4 % (0.0-10.0); %Lymphocytes 20.4 % (21.0-51.0); %Monocytes 11.6 % (0.0-10.0); %Neutrophils 65.2 % (42.0-75.0); Hematocrit 42.7 % (36.0-47.0); Mean Corpuscular HGB CONC 30.4 g/dL (32.0-36.0); Mean Corpuscular Hemoglobin 26.2 pg (27.0-31.0); Mean Corpuscular Volume 86.1 fL (78.0-98.0); Mean Platelet Volume 10.9 fL (7.4-10.4); Platelet Count 223 10x3/uL (130-400); RBC Distribution Width 14.5 % (11.5-14.5); Red Blood Cell (RBC) Count 4.96 mill/uL (4.20-5.40)
[2024-11-29 11:33] LABS: Anion Gap 15 mmol/L (10-20); BUN (Urea Nitrogen) 32 mg/dL (9.8-20.1); Calc. Creatinine Clearance 32 mL/min (70-130); Calcium 8.6 mg/dL (7.8-10.44); Carbon Dioxide 26 mmol/L (23-31); Chloride 101 mmol/L (98-107); Estimated GFR 27; Glucose 169 mg/dL (83-110); Potassium 4.5 mmol/L (3.5-5.1); Sodium 137 mmol/L (136-145)
[2024-11-29 15:57] VITALS: BP 140/66; TEMP 97.7
== END 2024-11-29 18:00 | disposition home health service (06) | DRG 871 ==
LOC: ERS 12:58 → 2NO 16:53
PROVIDERS: ADMIT Internal Medicine; ATTEND Student in an Organized Health Care Education/Training Program
DX: A41.50 Gram-negative sepsis, unspecified (principal); I50.33 Acute on chronic diastolic (congestive) heart failure; J96.21 Acute and chronic respiratory failure with hypoxia; J18.9 Pneumonia, unspecified organism; J44.1 Chronic obstructive pulmonary disease with (acute) exacerbation; Z68.41 Body mass index [BMI] 40.0-44.9, adult; E87.1 Hypo-osmolality and hyponatremia; I13.0 Hypertensive heart and chronic kidney disease with heart failure and stage 1 through stage 4 chronic kidney disease, or unspecified chronic kidney disease; E78.5 Hyperlipidemia, unspecified; E11.9 Type 2 diabetes mellitus without complications; N18.30 Chronic kidney disease, stage 3 unspecified; E03.9 Hypothyroidism, unspecified; E66.01 Morbid (severe) obesity due to excess calories; K21.9 Gastro-esophageal reflux disease without esophagitis; I48.91 Unspecified atrial fibrillation; E83.42 Hypomagnesemia; Z91.040 Latex allergy status; Z88.0 Allergy status to penicillin; Z91.013 Allergy to seafood; Z88.2 Allergy status to sulfonamides; Z91.018 Allergy to other foods; Z91.048 Other nonmedicinal substance allergy status; Z90.79 Acquired absence of other genital organ(s); Z82.49 Family history of ischemic heart disease and other diseases of the circulatory system; Z79.890 Hormone replacement therapy; Z95.818 Presence of other cardiac implants and grafts
CPT/HCPCS: 36415; 71045; 80048; 80053; 80202; 83605; 83735; 83880; 84145; 84484; 85025; 86141; 87040; 87081; 87428; 93005; 94640; 96374; 96375; J0360; J1100; J1644; J1940; J2543; J3370; J3475; J7611; J7620; J7626